=== PATIENT | male | born 1965 | race Caucasian/White ===

== ENCOUNTER 2021-01-19 10:36 | Outpatient (REF) | payer BC, SELFPAY ==
[2021-01-19 10:40] LABS: MANUAL DIFF FLAG NO
[2021-01-19 11:12] LABS: Basophils Percent Auto 0.5 % (0-2); Eosinophils Absolute Auto 0.3 X10*3/uL (0.0-0.4); Eosinophils Percent Auto 4.2 % (0-4); Hematocrit 46.8 % (42-52); Hemoglobin 15.5 g/dl (14.0-18.0); Imm Gran Abs Auto 0.03 X10*3/uL (0.00-0.03); Imm Gran Pct Auto 0.4 % (0.0-0.4); Lymphocytes Absolute Auto 2.5 X10*3/uL (1.2-4.9); Lymphocytes Percent Auto 30.7 % (20-40); Mean Corpuscular HGB Conc 33.1 g/dl (31.0-36.0); Mean Corpuscular Hemoglobin 29.2 pg (27.0-33.0); Mean Corpuscular Volume 88.1 fL (80-98); Mean Platelet Volume 10.4 fL (9.4-12.4); Monocytes Absolute Auto 0.8 X10*3/uL (0.1-1.2); Monocytes Percent Auto 10.3 % (2-11); Neutrophils Absolute Auto 4.4 X10*3/uL (2.0-8.3); Neutrophils Percent Auto 53.9 % (45-73); Platelet Count 269 X10*3/uL (160-400); Red Blood Count 5.31 X10*6/uL (4.60-5.80); Red Cell Distribution Width 13.1 % (11.0-16.0); White Blood Count 8.1 X10*3/uL (4.8-10.8)
[2021-01-19 11:30] LABS: Alanine Aminotransferase 32 U/L (0-40); Albumin Level 4.4 g/dL (3.5-5.0); Alkaline Phosphatase 55 U/L (39-117); Anion Gap 13 (12-20); Aspartate Amino Transferase 21 U/L (5-37); Bilirubin Total 0.7 mg/dL (0.0-1.0); Blood Urea Nitrogen 17 mg/dL (9-16); Calcium 9.5 mg/dL (8.4-10.2); Carbon Dioxide 23 mmol/L (22-29); Chloride 108 mmol/L (96-108); Cholesterol 199 mg/dL; Estimated Glomerular Filt Rate > 60; Glucose Fasting 89 mg/dL (60-99); HDL Cholesterol 38 mg/dL; LDL Cholesterol Calculated 101 mg/dl; Sodium 140 mmol/L (135-145); Total Protein 7.2 g/dL (6.5-8.0); Triglycerides 303 mg/dL
[2021-01-19 11:44] LABS: Glucose Urine UA NEG (NEG); Leukocyte Esterase Urine NEG (NEG); Nitrite Urine NEG (NEG); Specific Gravity - Urine >= 1.030 (1.005-1.025); Urine Blood TRACE (NEG); Urine Ketones NEG (NEG); Urine Protein NEG (NEG-TRACE)
[2021-01-19 11:49] LABS: Reflex LDLD? No
[2021-01-19 11:51] LABS: PSA,Total (Free>4and<10) 1.03 ng/mL (0.00-4.00)
[2021-01-19 11:53] LABS: Appearance Urine CLEAR; Color Urine YELLOW
[2021-01-19 12:04] LABS: RBC Urine 0 /HPF (0); Squamous Epithelial Cell Urine TRACE /LPF; WBC Urine 0-2 /HPF (0-4)
== END 2021-01-19 10:37 | disposition home or self-care (01) ==
LOC: HO.LNP 10:36
PROVIDERS: Visit Provider Internal Medicine
DX: Z00.00 Encounter for general adult medical examination without abnormal findings (principal); E78.00 Pure hypercholesterolemia, unspecified; Z12.5 Encounter for screening for malignant neoplasm of prostate
CPT/HCPCS: 80053; 80061; 81001; 81003; 84153; 85025

== ENCOUNTER 2021-08-02 09:39 | Emergency (ER) | payer BC, SELFPAY ==
[2021-08-02 09:49] VITALS: BP 122/81; PULSE 78; RESP 18; TEMP 36.7; O2SAT 98; BMI 27.9
[2021-08-02] MEDS: Tetracaine HCl/PF 0.5% Oph Sol 4 ML DROPS 3 DROP EYE-BOTH (10:11)
[2021-08-02] MEDS: Fluorescein Sodium STRIP 1 STRIP EYE-RIGHT (10:11)
[2021-08-02] MEDS: Fluorescein Sodium STRIP 1 STRIP EYE-LEFT (10:11)
--- NOTE | 2021-08-02 10:20 | ED_ITS ---
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 Patient denies any change in vision, loss of vision, or any recent trauma to the eye. Patient does not know of anything when to his eye. Patient states this morning he is continuously had symptoms of right eye pain with watery discharge he came to the ED. Patient states by the time he came to the ED right eye pain and watery discharge completely resolved. Patient wears glasses and does not sleep with contacts. Patient does not were contacts. Patient states no headache, dizziness, fever, chills, slurred speech, facial droop, paralysis of extremities, or loss of vision. Related Data Previous Rx's Medication Instructions Recorded erythromycin 5 mg/gram (0.5 %) eye 0.5 inch OPHTHALMIC (EYE) QID 7 08/02/21 ointment Days #3.5 g naproxen 500 mg tablet 500 mg PO BID PRN 10 Days #20 tab 08/02/21 Allergies Allergy/AdvReac Type Severity Reaction Status Date / Time No Known Allergies Allergy Unverified 02/20/20 17:39 [No Known Allergies*] Review of Systems Review of Systems: Resolved right eye pain with watery discharge. Yes all other systems are reviewed and are negative PMFSH Past Medical History Medical History (Updated 08/02/21 @ 10:27 by STEPHANIE Rahman) No known health problems Social History Social History Advance Directives: No Advance Directives Information Provided: Yes Physical Exam Vital Signs: Vital Signs: Last Vital Signs Temp 98.0 F 08/02/21 09:49 Pulse 78 08/02/21 09:49 Resp 18 08/02/21 09:49 BP 122/81 08/02/21 09:49 Pulse Ox 98 08/02/21 09:49 BMI result Body Mass Index 27.9 Const: General: cooperative, healthy appearing, comfortable, no acute distress, well developed, alert, awake and Physically active Orientation/consciousness: oriented to person, oriented to place and patient oriented x3 HENMT: Head: Yes normal to inspection, Yes No palpable skull fracture present, Yes normocephalic, Yes atraumatic and No abrasion Eyes: Other: Right eye: Visual acuity 20/30. Tonometry pressures 3. Tetracaine placed in eye. Fluorescein dye placed. Negative for any foreign body on evaluation. Under Wood's lamp positive for corneal abrasion. eye positive for slight conjunctival redness and watery discharge. Negative for eyelid swelling or globe tenderness. Left eye; visual acuity 20/20. Tonometry pressure 4. Tetracaine placed in eye. Fluorescein dye placed. Negative for any foreign body or evaluation. Negative for corneal abrasion. eye normal General: appearance normal, both eyes and all related structures Neck: Neck: Yes normal visual inspection and Yes full ROM Chest: Chest palpation & inspection: normal inspection of the chest and normal palpation of entire chest wall Resp: Effort & Inspection: normal respiratory effort and able to speak in complete sentences Auscultation: clear to auscultation bilaterally Cardio: Jugular venous distension: no JVD Heart sounds: S1 normal heart sound present and S2 normal heart sound present GI: Inspection: Yes normal to inspection and No abdominal wall ecchymosis Palpation (GI): Soft to palpation, not firm, nontender, no guarding and not rigid : General: No CVA tenderness and Yes no CVA tenderness Back/Spine/Pelvis: Back: no CVA tenderness, No CVA tenderness and No back tenderness Skin: General skin exam: no rashes or lesions noted and elasticity normal Neuro: Other: Negative for facial droop. Negative for slurred speech. Negative pronator drift. All extremities equal strength 5+. Finger to nose rapid hand movement intact General: oriented to person, oriented to place, patient oriented x3, gait normal and tone normal Cranial nerves: Yes CN's II-XII intact bilaterally Extrem: General: Yes normal to inspection and Yes full ROM Psych: Appearance: grossly normal, well kempt and not disheveled Course Course Course Narrative: Eye evaluated. Reevaluation(s) Reevaluation #1: Right eye positive for corneal abrasion. Patient states he has molding process technician in [place], patient form to follow-up with his molding process technician and pulses due to complex eye history. Patient informed if not able to follow up with molding process technician in [place] he can follow-up with Dr. Williamson at [facility]. Patient will be discharged with eye ointment and pain meds Time: 10:26 MDM - Eye Problem MDM Narrative Medical decision making narrative: Corneal abrasion Discharge Plan Discharge Clinical Impression: Corneal abrasion Patient Disposition: Home, Self-Care Instructions: Corneal Abrasion (DC) Additional Instructions: You will be discharged with eye ointment antibiotic for corneal abrasion. Please follow-up with the molding process technician as soon as possible. Return to the ED for any loss of vision, change in vision, severe pain, headache, dizziness, facial droop, paralysis of extremities, slurred speech, eyelid swelling, or any other concerning symptoms. Prescriptions: New naproxen 500 mg tablet 500 mg PO BID PRN (Reason: pain) 10 Days Qty: 20 0RF erythromycin 5 mg/gram (0.5 %) ointment 0.5 inch ophthalmic (eye) QID 7 Days Qty: 3.5 0RF Rx Instructions: place in right eye Referrals: Alvaro Williamson [Physician] - 2 days (Right eye corneal abrasion) Stand Alone Forms: Work/School Release Interventions: ED Discharge Assessment Last Done: 08/02/21 10:32 Discharge Date/Time: 08/02/21 10:32 Print Language: Yi
== END 2021-08-02 10:32 | disposition home or self-care (01) ==
PROVIDERS: Emergency Provider Emergency Medicine; PCP Internal Medicine
DX: S05.01XA Injury of conjunctiva and corneal abrasion without foreign body, right eye, initial encounter (principal); X58.XXXA Exposure to other specified factors, initial encounter; H57.11 Ocular pain, right eye; Y93.9 Activity, unspecified; Y92.9 Unspecified place or not applicable; Y99.9 Unspecified external cause status
CPT/HCPCS: 99283

== ENCOUNTER 2021-08-17 10:42 | Outpatient (REF) | payer BC, SELFPAY ==
[2021-08-17 11:11] LABS: Alanine Aminotransferase 28 U/L (0-40); Albumin Level 4.6 g/dL (3.5-5.0); Alkaline Phosphatase 71 U/L (39-117); Aspartate Amino Transferase 25 U/L (5-37); Bilirubin Direct 0.2 mg/dL (0.0-0.5); Bilirubin Total 0.5 mg/dL (0.0-1.0); Cholesterol 219 mg/dL; HDL Cholesterol 44 mg/dL; LDL Cholesterol Calculated 125 mg/dl; Total Protein 7.8 g/dL (6.5-8.0); Triglycerides 250 mg/dL
[2021-08-17 11:36] LABS: Reflex LDLD? No
== END 2021-08-17 10:43 | disposition home or self-care (01) ==
LOC: HO.LNP 10:42
PROVIDERS: Visit Provider Internal Medicine
DX: E78.00 Pure hypercholesterolemia, unspecified (principal)
CPT/HCPCS: 80061; 80076

== ENCOUNTER 2022-03-25 11:29 | Outpatient (REF) | payer BC, SELFPAY ==
[2022-03-25 11:31] LABS: MANUAL DIFF FLAG NO
[2022-03-25 11:56] LABS: Appearance Urine Clear; Color Urine Yellow; Glucose Urine UA Negative (Negative); Leukocyte Esterase Urine Negative (Negative); Nitrite Urine Negative (Negative); PH 6.5 (5.0-9.0); Urine Blood Negative (Negative); Urine Ketones Negative (Negative); Urine Protein Negative (Neg-Trace)
[2022-03-25 11:57] LABS: Basophils Absolute Auto 0.1 X10*3/uL (0.0-0.2); Basophils Percent Auto 0.5 % (0-2); Eosinophils Absolute Auto 0.4 X10*3/uL (0.0-0.4); Eosinophils Percent Auto 2.7 % (0-4); Hematocrit 47.6 % (42.0-52.0); Imm Gran Abs Auto 0.09 X10*3/uL (0.00-0.03); Imm Gran Pct Auto 0.7 % (0.0-0.4); Lymphocytes Absolute Auto 2.6 X10*3/uL (1.2-4.9); Lymphocytes Percent Auto 19.8 % (20-40); Mean Corpuscular HGB Conc 33.6 g/dl (31.0-36.0); Mean Corpuscular Hemoglobin 29.5 pg (27.0-33.0); Mean Corpuscular Volume 87.8 fL (80.0-98.0); Mean Platelet Volume 10.1 fL (9.4-12.4); Monocytes Absolute Auto 1.1 X10*3/uL (0.1-1.2); Monocytes Percent Auto 8.4 % (2-11); Neutrophils Absolute Auto 8.7 x10*3/uL (2.0-8.3); Neutrophils Percent Auto 67.9 % (45-73); Platelet Count 344 X10*3/uL (160-400); Red Blood Count 5.42 X10*6/uL (4.60-5.80); Red Cell Distribution Width 12.8 % (11.0-16.0); White Blood Count 12.9 X10*3/uL (4.8-10.8)
[2022-03-25 12:06] LABS: Bacteria Urine None Seen (None Seen); Hyaline Casts Urine 0-2 /LPF (0-2); RBC Urine 0-2 /HPF (0-2); Squamous Epithelial Cell Urine 0-2 /HPF (0-2); WBC Urine 0-5 /HPF (0-5)
[2022-03-25 12:27] LABS: Alanine Aminotransferase 23 U/L (0-40); Albumin Level 4.5 g/dL (3.5-5.0); Alkaline Phosphatase 60 U/L (39-117); Anion Gap 17 (12-20); Aspartate Amino Transferase 19 U/L (5-37); Bilirubin Total 0.6 mg/dL (0.0-1.0); Blood Urea Nitrogen 17 mg/dL (9-16); Calcium 9.6 mg/dL (8.4-10.2); Carbon Dioxide 25 mmol/L (22-29); Chloride 105 mmol/L (96-108); Cholesterol 195 mg/dL; Estimated Glomerular Filt Rate > 60; Glucose Fasting 88 mg/dL (60-99); HDL Cholesterol 43 mg/dL; LDL Cholesterol Calculated 120 mg/dl; Potassium 4.5 mmol/L (3.3-5.1); Sodium 142 mmol/L (135-145); Total Protein 7.4 g/dL (6.5-8.0); Triglycerides 162 mg/dL
== END 2022-03-25 11:30 | disposition home or self-care (01) ==
LOC: HO.LNP 11:29
PROVIDERS: Visit Provider Internal Medicine
DX: Z00.00 Encounter for general adult medical examination without abnormal findings (principal); E78.00 Pure hypercholesterolemia, unspecified; Z12.5 Encounter for screening for malignant neoplasm of prostate
CPT/HCPCS: 80053; 80061; 81001; 84153; 85025

== ENCOUNTER 2022-03-31 11:38 | Outpatient (REF) | payer BC, SELFPAY ==
[2022-03-31 11:40] LABS: MANUAL DIFF FLAG NO
[2022-03-31 12:11] LABS: Basophils Absolute Auto 0.1 X10*3/uL (0.0-0.2); Basophils Percent Auto 0.6 % (0-2); Eosinophils Absolute Auto 0.3 X10*3/uL (0.0-0.4); Eosinophils Percent Auto 2.8 % (0-4); Hematocrit 44.3 % (42.0-52.0); Imm Gran Abs Auto 0.05 X10*3/uL (0.00-0.03); Imm Gran Pct Auto 0.5 % (0.0-0.4); Lymphocytes Absolute Auto 1.9 X10*3/uL (1.2-4.9); Lymphocytes Percent Auto 17.3 % (20-40); Mean Corpuscular HGB Conc 33.9 g/dl (31.0-36.0); Mean Corpuscular Hemoglobin 29.6 pg (27.0-33.0); Mean Corpuscular Volume 87.5 fL (80.0-98.0); Mean Platelet Volume 10.3 fL (9.4-12.4); Monocytes Absolute Auto 0.8 X10*3/uL (0.1-1.2); Monocytes Percent Auto 6.8 % (2-11); Neutrophils Absolute Auto 7.9 x10*3/uL (2.0-8.3); Platelet Count 308 X10*3/uL (160-400); Red Blood Count 5.06 X10*6/uL (4.60-5.80); Red Cell Distribution Width 12.8 % (11.0-16.0)
== END 2022-03-31 11:39 | disposition home or self-care (01) ==
LOC: HO.LNP 11:38
PROVIDERS: Visit Provider Internal Medicine
DX: D72.829 Elevated white blood cell count, unspecified (principal)
CPT/HCPCS: 85025

== ENCOUNTER 2022-05-02 09:10 | Emergency (ER) | payer BC, SELFPAY ==
--- NOTE | ~2022-05-02 | CT_ITS ---
EXAMINATION: CT HEAD WITHOUT CONTRAST CLINICAL INFORMATION: Vague temporal headache with tenderness COMPARISON: None TECHNIQUE: Imaging was performed from the skull base to vertex without intravenous administration of contrast. This CT examination was performed using dose optimization techniques as appropriate, variously including the following: *Automated exposure control *Adjustment of mA and/or kV according to patient size (this includes techniques or standardized protocols for targeted exams where dose is matched to indication/reason for exam; i.e. extremities or head) *Use of iterative reconstruction technique Total exam dose length product: 696 mGy-cm FINDINGS: No intra or extra-axial fluid collection, hemorrhage, or mass. No ventriculomegaly. No midline shift or herniation. Basal cisterns are patent. Aguilar-white matter differentiation is maintained. No territorial encephalomalacia. No significant volume loss. There is no abnormal attenuation within the brain parenchyma. Bilateral basal ganglia calcifications noted incidentally. No calvarial fracture or soft tissue abnormality. Partial opacification of left mastoid air cells. No septal destruction. Middle ear cavity is normally aerated. Right mastoid air cells and imaged paranasal sinuses are normally aerated. CT/CT head/brain wo IV con IMPRESSION: 1. No acute intracranial pathology. 2. Left mastoid effusion without bony septal destruction, nonspecific. Correlate clinically with signs or symptoms of mastoiditis.
[2022-05-02 09:51] VITALS: BP 145/90; PULSE 80; RESP 16; TEMP 36.6; O2SAT 97; BMI 27.2
[2022-05-02 10:03] LABS: MANUAL DIFF FLAG NO
[2022-05-02 10:09] LABS: Basophils Absolute Auto 0.1 X10*3/uL (0.0-0.2); Basophils Percent Auto 0.9 % (0-2); Eosinophils Absolute Auto 0.2 X10*3/uL (0.0-0.4); Eosinophils Percent Auto 2.7 % (0-4); Hematocrit 47.2 % (42.0-52.0); Hemoglobin 15.8 g/dl (14.0-18.0); Imm Gran Abs Auto 0.03 X10*3/uL (0.00-0.03); Imm Gran Pct Auto 0.5 % (0.0-0.4); Lymphocytes Absolute Auto 1.2 X10*3/uL (1.2-4.9); Lymphocytes Percent Auto 19.5 % (20-40); Mean Corpuscular HGB Conc 33.5 g/dl (31.0-36.0); Mean Corpuscular Hemoglobin 29.4 pg (27.0-33.0); Mean Corpuscular Volume 87.7 fL (80.0-98.0); Mean Platelet Volume 9.7 fL (9.4-12.4); Monocytes Absolute Auto 1.1 X10*3/uL (0.1-1.2); Monocytes Percent Auto 17.9 % (2-11); Neutrophils Absolute Auto 3.7 x10*3/uL (2.0-8.3); Neutrophils Percent Auto 58.5 % (45-73); Platelet Count 279 X10*3/uL (160-400); Red Blood Count 5.38 X10*6/uL (4.60-5.80); Red Cell Distribution Width 12.9 % (11.0-16.0); White Blood Count 6.3 X10*3/uL (4.8-10.8)
[2022-05-02 10:25] LABS: Anion Gap 14 (12-20); Blood Urea Nitrogen 14 mg/dL (9-16); Calcium 9.9 mg/dL (8.4-10.2); Carbon Dioxide 24 mmol/L (22-29); Chloride 107 mmol/L (96-108); Creatinine Clr Calc Pharmacy 85.1; Estimated Glomerular Filt Rate > 60; Glucose Random 103 mg/dL (60-115); Potassium 4.4 mmol/L (3.3-5.1); Sodium 141 mmol/L (135-145)
--- NOTE | 2022-05-02 12:50 | ED.GENADULT ---
HPI - General Adult General Chief complaint: Headache <Magaly Maloney NP - Last Filed: 05/02/22 17:00> Stated complaint: Lump on forehead, painful <Magaly Maloney NP - Last Filed: 05/02/22 17:00> Time Seen by Provider: 05/02/22 12:43 <Magaly Maloney NP - Last Filed: 05/02/22 17:00> Source: patient <Magaly Maloney NP - Last Filed: 05/02/22 17:00> Mode of arrival: ambulatory <Magaly Maloney NP - Last Filed: 05/02/22 17:00> Limitations: no limitations <Magaly Maloney NP - Last Filed: 05/02/22 17:00> History of Present Illness HPI narrative: 56-year-old male with a H high cholesterol, on a statin, presents to the emergency department complaining of a bulging vein from his right upper forehead down to his right druze. Symptoms began yesterday with associated headache. He denies any injury or strenuous activity. 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 He took 2 at-home COVID-19 tests, 1 today and 1 yesterday, and both were negative. He also complains of 1 day of GI upset with increased flatus and fatigue. He denies any fever, chills, chest pain, shortness of breath, current headache, vision changes, changes in hearing. He denies any sore throat or trouble swallowing. <Magaly Maloney NP - Last Filed: 05/02/22 17:00> Onset (ago): day(s) (1) <Magaly Maloney NP - Last Filed: 05/02/22 17:00> Location: head <Magaly Maloney NP - Last Filed: 05/02/22 17:00> Radiation: non-radiation <Magaly Maloney NP - Last Filed: 05/02/22 17:00> Treatments prior to arrival: none <Magaly Maloney NP - Last Filed: 05/02/22 17:00> Related Data Home medications: Previous Rx's Medication Instructions Recorded erythromycin 5 mg/gram (0.5 %) eye 0.5 inch ophthalmic (eye) QID 7 08/02/21 ointment days #3.5 grams naproxen 500 mg tablet 500 mg PO BID PRN pain 10 days #20 08/02/21 tabs <Magaly Maloney NP - Last Filed: 05/02/22 17:00> Allergies/adverse reactions: Allergies Allergy/AdvReac Type Severity Reaction Status Date / Time No Known Allergies Allergy Unverified 02/20/20 17:39 [No Known Allergies*] <Magaly Maloney NP - Last Filed: 05/02/22 17:00> Review of Systems Review of Systems: Yes all other systems are reviewed and are negative <Magaly Maloney NP - Last Filed: 05/02/22 17:00> Constitutional: Constitutional: Reports no additional constitutional complaints, Denies chills, Reports fatigue, Denies fever(s), Reports headache(s) and Denies weakness <Magaly Maloney NP - Last Filed: 05/02/22 17:00> Eyes: Eyes: Reports no additional eye complaints and Denies change in vision <Magaly Maloney NP - Last Filed: 05/02/22 17:00> ENT: Reports system reviewed and no additional complaints, except as documented, Reports Normal hearing present, Denies dizziness, Denies facial pain, Reports headache(s) and Denies disequilibrium <Magaly Maloney NP - Last Filed: 05/02/22 17:00> Cardiovascular: Cardiovascular: Reports no additional cardiovascular complaints, Denies chest pain and Denies dyspnea <Magaly Maloney NP - Last Filed: 05/02/22 17:00> Respiratory: Respiratory: Reports no additional respiratory complaints, Denies chest congestion, Denies cough and Denies dyspnea <Magaly Maloney NP - Last Filed: 05/02/22 17:00> Gastrointestinal: Gastrointestinal: Reports no additional gastrointestinal complaints, Denies abdominal pain, Denies melena, Denies hematochezia, Denies constipation, Reports excessive flatus, Denies diarrhea, Denies nausea and Denies vomiting <Magaly Maloney NP - Last Filed: 05/02/22 17:00> Genitourinary: Genitourinary: Reports no additional male genitourinary complaints <Magaly Maloney NP - Last Filed: 05/02/22 17:00> Musculoskeletal: Musculoskeletal: Reports no additional musculoskeletal complaints, Denies myalgias, Denies numbness and Denies tingling <Magaly Maloney NP - Last Filed: 05/02/22 17:00> Integumentary/Breasts: Skin/Breast: Reports system reviewed and no additional complaints, except as docu, Denies lesions, Denies erythema, Denies rash and Denies sores <Magaly Maloney NP - Last Filed: 05/02/22 17:00> Neurologic: Reports system reviewed and no additional complaints, except as documented, Reports Normal hearing present, Denies dizziness, Reports headache(s), Denies numbness, Denies tingling, Denies disequilibrium and Denies weakness <Magaly Maloney NP - Last Filed: 05/02/22 17:00> Psychiatric: Psychiatric: Reports no additional psychiatric complaints <Magaly Maloney NP - Last Filed: 05/02/22 17:00> Endocrine: Endocrine: Reports fatigue <Magaly Maloney NP - Last Filed: 05/02/22 17:00> FOR[facility]LY [facility] Past Medical History Attestation statement: The following information was validated with the patient. <Magaly Maloney NP - Last Filed: 05/02/22 17:00> Source: old records reviewed <Magaly Maloney NP - Last Filed: 05/02/22 17:00> Medical History: Medical History No known health problems <Magaly Maloney NP - Last Filed: 05/02/22 17:00> Social History Social History: Social History Advance Directives: No Advance Directives Information Provided: Yes <Magaly Maloney NP - Last Filed: 05/02/22 17:00> Physical Exam ED Vital Signs: Vital Signs - 24 hr 05/02/22 09:51 Temperature 97.8 F Pulse Rate 80 Respiratory Rate 16 Blood Pressure 145/90 H Pulse Oximetry 97 Oxygen Delivery Method Room Air BMI result Body Mass Index 27.2 <Magaly Maloney NP - Last Filed: 05/02/22 17:00> Vital Signs - 24 hr 05/02/22 09:51 Temperature 97.8 F Pulse Rate 80 Respiratory Rate 16 Blood Pressure 145/90 H Pulse Oximetry 97 Oxygen Delivery Method Room Air BMI result Body Mass Index 27.2 <Campbell Wilson MD - Last Filed: 05/02/22 15:22> Const General: cooperative, no acute distress, alert and awake <Magaly Maloney NP - Last Filed: 05/02/22 17:00> Nutritional Appearance: well nourished <Magaly Maloney NP - Last Filed: 05/02/22 17:00> Orientation/consciousness: patient oriented x3 <Magaly Maloney NP - Last Filed: 05/02/22 17:00> Limitations: no limitations <Magaly Maloney NP - Last Filed: 05/02/22 17:00> HENMT Head: Yes normal to inspection, Yes normocephalic, Yes atraumatic, No palpable skull fracture, No scalp lesion, Yes Temporal artery tenderness present and No periorbital ecchymosis <Magaly Maloney NP - Last Filed: 05/02/22 17:00> Ears: hearing grossly normal bilaterally and external ears normal <Magaly Maloney NP - Last Filed: 05/02/22 17:00> General nose exam: Normal external nose present <Magaly Maloney NP - Last Filed: 05/02/22 17:00> Face and sinus: Yes normal facial exam <Magaly Maloney NP - Last Filed: 05/02/22 17:00> Mouth: Normal oral and palatal mucosa present and tongue abnormal with white coating <Magaly Maloney NP - Last Filed: 05/02/22 17:00> Teeth and gingiva: dentition normal <Magaly Maloney NP - Last Filed: 05/02/22 17:00> Eyes General: appearance normal, both eyes and all related structures <Magaly Maloney TERRESTRIAL ECOLOGIST - Last Filed: 05/02/22 17:00> Alignment and Position: alignment normal <Magaly Maloney TERRESTRIAL ECOLOGIST - Last Filed: 05/02/22 17:00> Periorbital: periorbital findings normal <Magaly Maloney TERRESTRIAL ECOLOGIST - Last Filed: 05/02/22 17:00> Eyelids: Yes eyelids normal <Magaly Maloney TERRESTRIAL ECOLOGIST - Last Filed: 05/02/22 17:00> Conjunctivae: conjunctivae normal <Magaly Maloney TERRESTRIAL ECOLOGIST - Last Filed: 05/02/22 17:00> Sclerae: sclerae normal <Magaly Maloney TERRESTRIAL ECOLOGIST - Last Filed: 05/02/22 17:00> Pupils: Equal, round and reactive pupils present <Magaly Maloney TERRESTRIAL ECOLOGIST - Last Filed: 05/02/22 17:00> EOM: EOMs intact bilaterally <Magaly Maloney TERRESTRIAL ECOLOGIST - Last Filed: 05/02/22 17:00> Neck Neck: Yes normal visual inspection, Yes full ROM and Yes no lymphadenopathy <Magaly Maloney TERRESTRIAL ECOLOGIST - Last Filed: 05/02/22 17:00> Chest Chest palpation & inspection: normal inspection of the chest <Magaly Maloney TERRESTRIAL ECOLOGIST - Last Filed: 05/02/22 17:00> Resp Effort & Inspection: normal respiratory effort and able to speak in complete sentences <Magaly Maloney TERRESTRIAL ECOLOGIST - Last Filed: 05/02/22 17:00> Auscultation: clear to auscultation bilaterally <Magaly Maloney TERRESTRIAL ECOLOGIST - Last Filed: 05/02/22 17:00> Cardio Rate: regular rate <Magaly Maloney TERRESTRIAL ECOLOGIST - Last Filed: 05/02/22 17:00> Rhythm: regular rhythm <Magaly Maloney TERRESTRIAL ECOLOGIST - Last Filed: 05/02/22 17:00> GI Palpation (GI): Soft to palpation, not firm, nontender, no guarding and not rigid <Magaly Mlaoney TERRESTRIAL ECOLOGIST - Last Filed: 05/02/22 17:00> Auscultation: normal bowel sounds <Magaly Maloney TERRESTRIAL ECOLOGIST - Last Filed: 05/02/22 17:00> Skin General skin exam: no rashes or lesions noted <Magaly Maloney TERRESTRIAL ECOLOGIST - Last Filed: 05/02/22 17:00> Neuro General: patient oriented x3 <Magaly Maloney TERRESTRIAL ECOLOGIST - Last Filed: 05/02/22 17:00> Cranial nerves: Yes Equal, round and reactive pupils present and Yes Normal hearing present <Magaly Maloney TERRESTRIAL ECOLOGIST - Last Filed: 05/02/22 17:00> Cognition (Neuro): normal cognition <Magaly Maloney TERRESTRIAL ECOLOGIST - Last Filed: 05/02/22 17:00> Gait exam (Neuro): Normal gait present <Magaly Maloney TERRESTRIAL ECOLOGIST - Last Filed: 05/02/22 17:00> Motor exam (neuro): 5/5 motor strength present throughout <Magaly Maloney TERRESTRIAL ECOLOGIST - Last Filed: 05/02/22 17:00> Sensory Exam: Normal double simultaneous stimulation for sensation <Magaly Maloney TERRESTRIAL ECOLOGIST - Last Filed: 05/02/22 17:00> Extrem General: Yes normal to inspection, Yes full ROM and Yes capillary refill normal <Magaly Maloney TERRESTRIAL ECOLOGIST - Last Filed: 05/02/22 17:00> Psych Appearance: grossly normal <Magaly Maloney TERRESTRIAL ECOLOGIST - Last Filed: 05/02/22 17:00> Mental Status: mental status grossly normal <Magaly Maloney TERRESTRIAL ECOLOGIST - Last Filed: 05/02/22 17:00> Speech and movement: Normal speech and movement present <Magaly Maloney TERRESTRIAL ECOLOGIST - Last Filed: 05/02/22 17:00> Affect: normal affect <Magaly Maloney TERRESTRIAL ECOLOGIST - Last Filed: 05/02/22 17:00> Attitude: cooperative <Magaly Maloney TERRESTRIAL ECOLOGIST - Last Filed: 05/02/22 17:00> Thought process: Normal thought process present <Magaly Maloney TERRESTRIAL ECOLOGIST - Last Filed: 05/02/22 17:00> Thought content: Normal thought content present <Magaly Maloney NP - Last Filed: 05/02/22 17:00> Insight: Good insight present (Psych) <Magaly Maloney NP - Last Filed: 05/02/22 17:00> Judgement: Good judgement present (Psych) <Magaly Maloney NP - Last Filed: 05/02/22 17:00> Course Course Course Narrative: 1440: Blood work unremarkable. CT head ordered to rule out intracranial pathology. 1650: CT head shows left mastoid effusion without bony septal destruction with history and physical exam suspicious for mastoiditis. Patient contacted with CT head results, recommended to begin decongestants for treatment. No answer questions by patient. 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 Blood work unremarkable. ESR and CRP unremarkable for temporal arteritis. CT head pending read. Patient requests discharge at this time. History, physical exam, and diagnostics discussed with patient with no unanswered questions at this time. Plan to contact patient with CT head results at patient's request. Educated to return to the emergency department with severe headache, changes in vision, fever, chills, nausea, vomiting, or any other emergent symptom that is concerning. Recommended to follow up with the primary care provider for further treatment and management. 1650: CT head shows left mastoid effusion without bony septal destruction. History and physical exam with low suspicion for mastoiditis as patient denies fever or ear pain and there is no local erythema over mastoid bone, edema of the pinna or displaced auricle. Pt contacted with CT head results and recommended to begin decongestants for treatment. <Magayl Maloney NP - Last Filed: 05/02/22 17:00> Lab Data Lab results reviewed: Yes I reviewed the patient's lab results. <Magaly Maloney NP - Last Filed: 05/02/22 17:00> Result diagrams: : 05/02/22 09:59 05/02/22 09:59 <Magaly Maloney NP - Last Filed: 05/02/22 17:00> Labs: Lab Results 05/02/22 05/02/22 05/02/22 Range/Units 09:59 09:59 09:59 WBC 6.3 (4.8-10.8) X10*3/uL RBC 5.38 (4.60-5.80) X10*6/uL Hgb 15.8 (14.0-18.0) g/dl Hct 47.2 (42.0-52.0) % MCV 87.7 (80.0-98.0) fL MCH 29.4 (27.0-33.0) pg MCHC 33.5 (31.0-36.0) g/dl RDW 12.9 (11.0-16.0) % Plt Count 279 (160-400) X10*3/uL MPV 9.7 (9.4-12.4) fL Immature Gran % (Auto) 0.5 H (0.0-0.4) % Neut % (Auto) 58.5 (45-73) % Lymph % (Auto) 19.5 L (20-40) % [place] % (Auto) 17.9 H (2-11) % Eos % (Auto) 2.7 (0-4) % Baso % (Auto) 0.9 (0-2) % Lymph # (Auto) 1.2 (1.2-4.9) X10*3/uL [place] # (Auto) 1.1 (0.1-1.2) X10*3/uL Eos # (Auto) 0.2 (0.0-0.4) X10*3/uL Baso # (Auto) 0.1 (0.0-0.2) X10*3/uL Abs Immat Gran (auto) 0.03 (0.00-0.03) X10*3/uL Absolute Neuts (auto) 3.7 (2.0-8.3) x10*3/uL Absolute Nucleated RBC 0.000 (0.0-0.012) X10*3/uL Nucleated RBC % (auto) 0.0 (0.0-0.2) /100WBC ESR 7 (0-15) MM/HR Sodium 141 (135-145) mmol/L Potassium 4.4 (3.3-5.1) mmol/L Chloride 107 (96-108) mmol/L Carbon Dioxide 24 (22-29) mmol/L Anion Gap 14 (12-20) BUN 14 (9-16) mg/dL Creatinine 1.00 (0.5-1.4) mg/dL Estim Creat Clear Calc 85.1 Estimated GFR > 60 Random Glucose 103 (60-115) mg/dL Calcium 9.9 (8.4-10.2) mg/dL Phosphorus 3.5 (2.7-4.5) mg/dL Total Bilirubin 0.5 (0.0-1.0) mg/dL Direct Bilirubin 0.2 (0.0-0.5) mg/dL AST 25 (5-37) U/L ALT 34 (0-40) U/L Alkaline Phosphatase 71 (39-117) U/L C-Reactive Protein 0.62 H (< or = 0.50) mg/dL Total Protein 7.8 (6.5-8.0) g/dL Albumin 4.7 (3.5-5.0) g/dL 25-OH Vitamin D Total 34.1 (>30) ng/mL <Magaly Maloney, TERRESTRIAL ECOLOGIST - Last Filed: 05/02/22 17:00> Lab Results 05/02/22 05/02/22 05/02/22 Range/Units 09:59 09:59 09:59 WBC 6.3 (4.8-10.8) X10*3/uL RBC 5.38 (4.60-5.80) X10*6/uL Hgb 15.8 (14.0-18.0) g/dl Hct 47.2 (42.0-52.0) % MCV 87.7 (80.0-98.0) fL MCH 29.4 (27.0-33.0) pg MCHC 33.5 (31.0-36.0) g/dl RDW 12.9 (11.0-16.0) % Plt Count 279 (160-400) X10*3/uL MPV 9.7 (9.4-12.4) fL Immature Gran % (Auto) 0.5 H (0.0-0.4) % Neut % (Auto) 58.5 (45-73) % Lymph % (Auto) 19.5 L (20-40) % [place] % (Auto) 17.9 H (2-11) % Eos % (Auto) 2.7 (0-4) % Baso % (Auto) 0.9 (0-2) % Lymph # (Auto) 1.2 (1.2-4.9) X10*3/uL [place] # (Auto) 1.1 (0.1-1.2) X10*3/uL Eos # (Auto) 0.2 (0.0-0.4) X10*3/uL Baso # (Auto) 0.1 (0.0-0.2) X10*3/uL Abs Immat Gran (auto) 0.03 (0.00-0.03) X10*3/uL Absolute Neuts (auto) 3.7 (2.0-8.3) x10*3/uL Absolute Nucleated RBC 0.000 (0.0-0.012) X10*3/uL Nucleated RBC % (auto) 0.0 (0.0-0.2) /100WBC ESR 7 (0-15) MM/HR Sodium 141 (135-145) mmol/L Potassium 4.4 (3.3-5.1) mmol/L Chloride 107 (96-108) mmol/L Carbon Dioxide 24 (22-29) mmol/L Anion Gap 14 (12-20) BUN 14 (9-16) mg/dL Creatinine 1.00 (0.5-1.4) mg/dL Estim Creat Clear Calc 85.1 Estimated GFR > 60 Random Glucose 103 (60-115) mg/dL Calcium 9.9 (8.4-10.2) mg/dL Phosphorus 3.5 (2.7-4.5) mg/dL Total Bilirubin 0.5 (0.0-1.0) mg/dL Direct Bilirubin 0.2 (0.0-0.5) mg/dL AST 25 (5-37) U/L ALT 34 (0-40) U/L Alkaline Phosphatase 71 (39-117) U/L C-Reactive Protein 0.62 H (< or = 0.50) mg/dL Total Protein 7.8 (6.5-8.0) g/dL Albumin 4.7 (3.5-5.0) g/dL 25-OH Vitamin D Total 34.1 (>30) ng/mL <Campbell Wilson MD - Last Filed: 05/02/22 15:22> Imaging Data CT scan - head: My impression: No intracranial pathology. Left mastoid effusion without bony septal destruction. <Magaly Maloney NP - Last Filed: 05/02/22 17:00> Radiologist's impression: EXAMINATION: CT HEAD WITHOUT CONTRAST CLINICAL INFORMATION: Vague temporal headache with tenderness? COMPARISON: None TECHNIQUE: Imaging was performed from the skull base to vertex without intravenous administration of contrast. This CT examination was performed using dose optimization techniques as appropriate, variously including the following: *Automated exposure control *Adjustment of mA and/or kV according to patient size (this includes techniques or standardized protocols for targeted exams where dose is matched to indication/reason for exam; i.e. extremities or head) *Use of iterative reconstruction technique Total exam dose length product: 696 mGy-cm FINDINGS: No intra or extra-axial fluid collection, hemorrhage, or mass. No ventriculomegaly. No midline shift or herniation. Basal cisterns are patent. Aguilar-white matter differentiation is maintained. No territorial encephalomalacia. ?No significant volume loss. There is no abnormal attenuation within the brain parenchyma. Bilateral basal ganglia calcifications noted incidentally. No calvarial fracture or soft tissue abnormality. Partial opacification of left mastoid air cells. No septal destruction. Middle ear cavity is normally aerated. Right mastoid air cells and imaged paranasal sinuses are normally aerated. CT/CT head/brain wo IV con IMPRESSION: 1.? No acute intracranial pathology. 2.? Left mastoid effusion without bony septal destruction, nonspecific. Correlate clinically with signs or symptoms of mastoiditis. ? Dictated By: Giovanni Hayden Signed By: <Electronically signed by Giovanni? Catracho in [place]> 05/02/22 1631 DD/ 1557 TD/TT:? Cargo Agent: <Magaly Maloney NP - Last Filed: 05/02/22 17:00> Discharge Plan Discharge Clinical Impression: Headache <Magaly Maloney NP - Last Filed: 05/02/22 17:00> Patient Disposition: Home, Self-Care <Magaly Maloney NP - Last Filed: 05/02/22 17:00> Instructions: Acute Headache (ED) <Magaly Maloney NP - Last Filed: 05/02/22 17:00> Additional Instructions: Please return to the emergency department with worsening headache, change in vision, dizziness, or any other emergent symptoms that may be concerning. Recommended follow-up with the primary care provider for further treatment and management. <Magaly Maloney NP - Last Filed: 05/02/22 17:00> Prescriptions: No Action naproxen 500 mg tablet 500 mg PO BID PRN (Reason: pain) 10 Days Qty: 20 0RF erythromycin 5 mg/gram (0.5 %) ointment 0.5 inch ophthalmic (eye) QID 7 Days Qty: 3.5 0RF Rx Instructions: place in right eye <Magaly Maloney NP - Last Filed: 05/02/22 17:00> Referrals: Kody Servin MD [Primary Care Provider] - <Magaly Maloney NP - Last Filed: 05/02/22 17:00> Stand Alone Forms: Work/School Release <Magaly Maloney NP - Last Filed: 05/02/22 17:00> Interventions: ED Discharge Assessment Last Done: 05/02/22 15:50 <Magaly Maloney NP - Last Filed: 05/02/22 17:00> Discharge Date/Time: 05/02/22 15:51 <Magaly Maloney NP - Last Filed: 05/02/22 17:00>
[2022-05-02 13:58] LABS: Alanine Aminotransferase 34 U/L (0-40); Albumin Level 4.7 g/dL (3.5-5.0); Alkaline Phosphatase 71 U/L (39-117); Aspartate Amino Transferase 25 U/L (5-37); Bilirubin Direct 0.2 mg/dL (0.0-0.5); Bilirubin Total 0.5 mg/dL (0.0-1.0); C Reactive Protein 0.62 mg/dL (< or = 0.50); Phosphorus 3.5 mg/dL (2.7-4.5); Total Protein 7.8 g/dL (6.5-8.0); Vitamin D 25-OH Total 34.1 ng/mL (>30)
[2022-05-02 14:20] LABS: Erythrocyte Sedimentation Rate 7 MM/HR (0-15)
== END 2022-05-02 15:51 | disposition home or self-care (01) ==
PROVIDERS: Nurse Practitioner Family; Emergency Provider Emergency Medicine; PCP Internal Medicine
DX: R51.9 Headache, unspecified (principal); E78.5 Hyperlipidemia, unspecified; Z79.02 Long term (current) use of antithrombotics/antiplatelets
CPT/HCPCS: 36415; 70450; 80048; 80076; 82306; 84100; 85025; 85652; 86140; 99282; 99284

== ENCOUNTER 2022-09-26 10:31 | Outpatient (REF) | payer BC, SELFPAY ==
[2022-09-26 11:06] LABS: Alanine Aminotransferase 34 U/L (0-40); Albumin Level 4.5 g/dL (3.5-5.0); Alkaline Phosphatase 57 U/L (39-117); Aspartate Amino Transferase 26 U/L (5-37); Bilirubin Direct 0.2 mg/dL (0.0-0.5); Bilirubin Total 0.9 mg/dL (0.0-1.0); Cholesterol 213 mg/dL; HDL Cholesterol 47 mg/dL; LDL Cholesterol Calculated 123 mg/dl; Total Protein 7.2 g/dL (6.5-8.0); Triglycerides 216 mg/dL
[2022-09-26 14:40] LABS: Reflex LDLD? No
== END 2022-09-26 10:32 | disposition home or self-care (01) ==
LOC: HO.LNP 10:31
PROVIDERS: Visit Provider Internal Medicine
DX: E78.00 Pure hypercholesterolemia, unspecified (principal)
CPT/HCPCS: 80061; 80076

== ENCOUNTER 2023-01-05 11:27 | Outpatient (REF) | payer BC, SELFPAY ==
--- NOTE | ~2023-01-05 | XR_ITS ---
EXAMINATION: XR PELVIS CLINICAL INFORMATION: Hip pain COMPARISON: None available. TECHNIQUE: AP view of the pelvis. FINDINGS: No fracture. Hip joint spaces are maintained. Alignment is anatomic. Sacroiliac joints and pubic symphysis are normal. There is scattered phleboliths in pelvis. No abnormal soft tissue calcifications. XR/XR pelvis 1-2V IMPRESSION: Unremarkable AP pelvis exam.
== END 2023-01-05 11:28 | disposition home or self-care (01) ==
LOC: HO.HOSX 11:27
PROVIDERS: PCP Internal Medicine; Visit Provider Orthopaedic Surgery
DX: M70.62 Trochanteric bursitis, left hip (principal)
CPT/HCPCS: 72170

== ENCOUNTER 2023-01-05 11:27 | Outpatient (AMB) | payer BC, SELFPAY ==
[2023-01-05 11:49] VITALS: BMI 27.3
--- NOTE | 2023-01-05 11:49 | MHC.OFFVIS ---
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 Patient reports that he has had ongoing pain in the left hip for about 2 montsh now. His pain is felt on the lateral aspect of the hip, his pain increases with ambluation. He is taking ibuprofen prn pain. \Has not tried physical therapy. Has occasional numbness and tingling in the local area. 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 He has pain with daily activity, worse with walking. He says he feels like he has a bruised feeling to his hip. He denies any pain when using stairs. He says his pain is mild now, having improved over the last few weeks. His pain used to be more severe. He takes Ibuprofen, with some relief, and denies any injections or PT. 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 Review of Systems Const All systems reviewed & are unremarkable except as noted in HPI and below Physical Exam Vital Signs: BMI result Body Mass Index 27.3 Const General: no acute distress, alert and awake Orientation/consciousness: patient oriented x3 HEENT Head: Yes normocephalic and Yes atraumatic Eyes EOM: EOMs intact bilaterally Resp Effort & Inspection: normal respiratory effort and able to speak in complete sentences Cardio Jugular venous distension: no JVD Skin General skin exam: turgor normal Rashes: no rashes Neuro General: patient oriented x3 Extrem Other: Left Hip: Full painless ROM Mild TTP over the greater trochanteric bursa Psych Appearance: grossly normal Affect: normal affect Attitude: cooperative Results Reviewed Results Reviewed: I personally reviewed relevant radiographs. nl hip radiographs Assessment & Plan Assessment & Plan (1) Greater trochanteric bursitis of left hip: Code(s): M70.62 - Trochanteric bursitis, left hip Plan: This is a 57 year old man with left hip greater trochanteric Bursitis. He has pain with daily activity, worse with prolonged ambulation. He denies any prior treatment, but says his pain has improved with time. I discussed his diagnosis and treatment options. I recommend PT, strengthening exercises, NSAIDs, and icing. No acute intervention warranted. I recommend IT band, hip flexor, and gluteal stretching exercises. He was provided with a handout of IT band exercises to perform at home. He can follow up prn. Plan Scribed for Gino Adame MD by Nikolas Marinelli, medical insurance verifier, on 01/05/23 at 12:00 PM, EST. Orders: Orders XR pelvis 1-2V Today M25.559 - Pain in unspecified hip Coding Level of Care Code New Pt Level 3 (14981) Diagnoses Greater trochanteric bursitis of left hip M70.62
== END 2023-01-05 12:04 | disposition home or self-care (01) ==
PROVIDERS: PCP Internal Medicine; Visit Provider Orthopaedic Surgery
DX: M70.62 Trochanteric bursitis, left hip (principal)
CPT/HCPCS: 99203

== ENCOUNTER 2023-03-28 10:48 | Outpatient (REF) | payer BC, SELFPAY ==
[2023-03-28 10:53] LABS: MANUAL DIFF FLAG NO
[2023-03-28 11:17] LABS: Basophils Absolute Auto 0.1 X10*3/uL (0.0-0.2); Basophils Percent Auto 0.6 % (0-2); Eosinophils Absolute Auto 0.3 X10*3/uL (0.0-0.4); Eosinophils Percent Auto 3.7 % (0-4); Hematocrit 47.5 % (42.0-52.0); Hemoglobin 15.9 g/dl (14.0-18.0); Imm Gran Abs Auto 0.04 X10*3/uL (0.00-0.03); Imm Gran Pct Auto 0.5 % (0.0-0.4); Lymphocytes Absolute Auto 2.6 X10*3/uL (1.2-4.9); Lymphocytes Percent Auto 30.5 % (20-40); Mean Corpuscular HGB Conc 33.5 g/dl (31.0-36.0); Mean Corpuscular Hemoglobin 29.6 pg (27.0-33.0); Mean Corpuscular Volume 88.3 fL (80.0-98.0); Mean Platelet Volume 10.4 fL (9.4-12.4); Monocytes Absolute Auto 0.6 X10*3/uL (0.1-1.2); Monocytes Percent Auto 7.4 % (2-11); Neutrophils Absolute Auto 4.8 x10*3/uL (2.0-8.3); Neutrophils Percent Auto 57.3 % (45-73); Platelet Count 287 X10*3/uL (160-400); Red Blood Count 5.38 X10*6/uL (4.60-5.80); Red Cell Distribution Width 12.9 % (11.0-16.0); White Blood Count 8.4 X10*3/uL (4.8-10.8)
[2023-03-28 11:18] LABS: Appearance Urine Clear; Color Urine Yellow; Glucose Urine UA Negative (Negative); Leukocyte Esterase Urine Trace (Negative); Nitrite Urine Negative (Negative); Specific Gravity - Urine 1.025 (1.005-1.025); UMIC TRIGGER UACC YES; Urine Blood Trace (Negative); Urine Ketones Negative (Negative); Urine Protein Negative (Neg-Trace)
[2023-03-28 11:25] LABS: Bacteria Urine None Seen (None Seen); Squamous Epithelial Cell Urine 0-2 /HPF (0-2); WBC Urine 0-5 /HPF (0-5)
[2023-03-28 11:47] LABS: Alanine Aminotransferase 44 U/L (0-40); Albumin Level 4.4 g/dL (3.5-5.0); Alkaline Phosphatase 64 U/L (39-117); Anion Gap 15 (12-20); Aspartate Amino Transferase 26 U/L (5-37); Bilirubin Total 0.4 mg/dL (0.0-1.0); Blood Urea Nitrogen 18 mg/dL (9-16); Carbon Dioxide 24 mmol/L (22-29); Chloride 109 mmol/L (96-108); Cholesterol 199 mg/dL (<200); Estimated Glomerular Filt Rate > 60; Glucose Fasting 140 mg/dL (60-99); HDL Cholesterol 38 mg/dL (>40); Sodium 144 mmol/L (135-145); Total Protein 7.6 g/dL (6.5-8.0); Triglycerides 565 mg/dL (<150)
[2023-03-28 11:49] LABS: PSA,Total (Free>4and<10) 1.43 ng/mL (0.00-4.00)
== END 2023-03-28 10:49 | disposition home or self-care (01) ==
LOC: HO.LNP 10:48
PROVIDERS: Visit Provider Internal Medicine
DX: Z00.00 Encounter for general adult medical examination without abnormal findings (principal); Z12.5 Encounter for screening for malignant neoplasm of prostate; E78.00 Pure hypercholesterolemia, unspecified; D72.829 Elevated white blood cell count, unspecified
CPT/HCPCS: 80053; 80061; 81001; 84153; 85025

== ENCOUNTER 2023-09-04 11:10 | Outpatient (REF) | payer BC, SELFPAY ==
[2023-09-04 12:07] LABS: Alanine Aminotransferase 26 U/L (0-40); Albumin Level 4.4 g/dL (3.5-5.0); Alkaline Phosphatase 59 U/L (39-117); Aspartate Amino Transferase 24 U/L (5-37); Bilirubin Direct 0.2 mg/dL (0.0-0.5); Bilirubin Total 0.5 mg/dL (0.0-1.0); Cholesterol 195 mg/dL (<200); HDL Cholesterol 43 mg/dL (>40); LDL Cholesterol Calculated 90 mg/dL (<100); Total Protein 7.5 g/dL (6.5-8.0); Triglycerides 312 mg/dL (<150)
[2023-09-04 12:21] LABS: Reflex LDLD? No
== END 2023-09-04 11:11 | disposition home or self-care (01) ==
LOC: HO.LNP 11:10
PROVIDERS: Visit Provider Internal Medicine
DX: E78.00 Pure hypercholesterolemia, unspecified (principal)
CPT/HCPCS: 80061; 80076

== ENCOUNTER 2024-02-20 21:36 | Emergency (ER) | payer BC, SELFPAY ==
--- NOTE | ~2024-02-20 | CT_ITS ---
EXAMINATION: CT ABDOMEN AND PELVIS WITHOUT CONTRAST CLINICAL INFORMATION: Right flank pain. COMPARISON: None available. TECHNIQUE: Multidetector volumetric imaging was performed from the superior aspect of the liver through the pubic symphysis. Sagittal and coronal reformatted images were obtained on the technologist's workstation. This CT examination was performed using dose optimization techniques as appropriate, variously including the following: *Automated exposure control *Adjustment of mA and/or kV according to patient size (this includes techniques or standardized protocols for targeted exams where dose is matched to indication/reason for exam; i.e. extremities or head) *Use of iterative reconstruction technique DLP: 532 mGy-cm FINDINGS: LUNG BASES: There is minimal scarring or subsegmental atelectasis at the lung bases. LIVER, GALLBLADDER, AND BILIARY TREE: The liver is normal in size, shape, and attenuation. No focal hepatic lesion or biliary ductal dilatation is present. The gallbladder is unremarkable with no evidence of radiopaque gallstones, gallbladder wall thickening, or obvious pericholecystic inflammatory changes. PANCREAS: Unremarkable. SPLEEN: Unremarkable. ADRENAL GLANDS: Unremarkable. KIDNEYS AND URETERS: The kidneys are normal in size, shape, and attenuation. There is a nonobstructing 4 mm calculus upper pole right kidney. There is mild right hydronephrosis and hydroureter extending into the pelvis to the level of a 2.5 mm calculus right ureterovesicular junction. BLADDER: Unremarkable. GASTROINTESTINAL TRACT: There is a single cecal diverticulum. The appendix is visualized and is within normal limits. ABDOMINAL WALL: No significant hernia is appreciated. LYMPH NODES: Normal. VASCULAR: There is atherosclerotic plaque of the abdominal aorta and proximal branches. PELVIC VISCERA: There is prostate gland hypertrophy. OSSEOUS STRUCTURES: There is diffuse moderate thoracolumbar degenerative changes. CT/CT abdomen pelvis wo IV con IMPRESSION: Mild right hydronephrosis and hydroureter extending into the pelvis to the level of a 2.5 mm calculus in the right ureterovesicular junction. Small nonobstructing right upper pole renal calculus. Fleischner guidelines were followed. Electronically signed by: Narendra Gay MD 02/21/2024 03:34 AM EDT
[2024-02-20 22:05] VITALS: BP 131/84; PULSE 79; RESP 18; TEMP 36.8; O2SAT 98; BMI 27.8
[2024-02-20 22:56] LABS: Hematocrit 45.3 % (42.0-52.0); Hemoglobin 15.7 g/dl (14.0-18.0); Mean Corpuscular HGB Conc 34.7 g/dl (31.0-36.0); Mean Corpuscular Hemoglobin 29.8 pg (27.0-33.0); Mean Platelet Volume 9.5 fL (9.4-12.4); Platelet Count 282 X10*3/uL (160-400); Red Blood Count 5.27 X10*6/uL (4.60-5.80); Red Cell Distribution Width 12.9 % (11.0-16.0); White Blood Count 12.4 X10*3/uL (4.8-10.8)
[2024-02-20 23:05] LABS: Appearance Urine Cloudy; Color Urine BROWN; Glucose Urine UA Negative (Negative); Leukocyte Esterase Urine Trace (Negative); Nitrite Urine Negative (Negative); UMIC TRIGGER UACC YES; Urine Blood Large (3+) (Negative); Urine Ketones Negative (Negative); Urine Protein 30 (1+) mg/dL (Neg-Trace)
[2024-02-20 23:09] LABS: Alanine Aminotransferase 31 U/L (0-40); Albumin Level 4.4 g/dL (3.5-5.0); Alkaline Phosphatase 54 U/L (39-117); Anion Gap 13 (12-20); Aspartate Amino Transferase 25 U/L (5-37); Bilirubin Total 0.6 mg/dL (0.0-1.0); Blood Urea Nitrogen 19 mg/dL (9-16); Calcium 9.9 mg/dL (8.4-10.2); Carbon Dioxide 23 mmol/L (22-29); Chloride 111 mmol/L (96-108); Creatinine Clr Calc Pharmacy 80.2; Estimated Glomerular Filt Rate > 60; Glucose Random 123 mg/dL (60-115); Potassium 4.2 mmol/L (3.3-5.1); Sodium 143 mmol/L (135-145); Total Protein 7.6 g/dL (6.5-8.0)
[2024-02-20 23:17] LABS: Bacteria Urine None Seen (None Seen); Hyaline Casts Urine 0-2 /LPF (0-2); RBC Urine >20 /HPF (0-2); Squamous Epithelial Cell Urine 0-2 /HPF (0-2); UACC Culture Trigger YES
--- NOTE | 2024-02-21 02:00 | ED_ITS ---
HPI - Male Genitourinary General Chief complaint: Urogenital-Male Stated complaint: Nausea/urinating blood Time Seen by Provider: 02/21/24 02:00 Source: patient Mode of arrival: ambulatory History of Present Illness ED Provider: Dr. Wilson HPI Narrative: right flank pain with N/V and diaphoresis, then had hematuria tonight. Patient has no history of kidney stone or UTI prior. Onset (ago): hour(s) Related Data Previous Rx's ?Medication ?Instructions ?Recorded erythromycin 5 mg/gram (0.5 %) eye 0.5 inch ophthalmic (eye) QID 7 08/02/21 ointment days #3.5 grams naproxen 500 mg tablet 500 mg PO BID PRN pain 10 days #20 08/02/21 tabs naproxen 500 mg tablet (Naprosyn) 500 mg PO BID #20 tabs 02/21/24 tamsulosin 0.4 mg capsule (Flomax) 0.4 mg PO BEDTIME #20 caps 02/21/24 Allergies Allergy/AdvReac Type Severity Reaction Status Date / Time No Known Allergies Allergy Unverified 02/20/24 22:06 [No Known Allergies*] Review of Systems 2 Review of Systems: Yes all other systems are reviewed and are negative Neurologic: Denies Sensory deficit (Neuro) [facility] Past Medical History Medical History No known health problems Social History Social History Advance Directives: No Advance Directives Information Provided: No Do you have a plan to hurt others: No Plan 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 occupational 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 Physical Exam 2 Vital Signs: Vital Signs: Last Vital Signs Temp 97.6 F 02/21/24 02:59 Pulse 76 02/21/24 02:59 Resp 18 02/21/24 02:59 BP 117/95 H 02/21/24 02:59 Pulse Ox 99 02/21/24 02:59 O2 Del Method Room Air 02/21/24 02:59 BMI result Body Mass Index 27.8 Const: General: healthy appearing Nutritional Appearance: average body habitus Orientation/consciousness: oriented to person and patient oriented x3 Limitations: no limitations HEENT: Head: Yes normal to inspection Ears: external ears normal General nose exam: Normal external nose present Mouth: Normal oral and palatal mucosa present and oropharynx normal Throat: Yes posterior oropharynx normal Eyes: General: appearance normal, both eyes and all related structures Neck: Other: supple Neck: Yes normal visual inspection Chest: Chest palpation & inspection: normal inspection of the chest Resp: Auscultation: clear to auscultation bilaterally Cardio: Jugular venous distension: no JVD Rate: regular rate Rhythm: r egular rhythm Heart sounds: S1 normal heart sound present and S2 normal heart sound present GI: Inspection: Yes normal to inspection Palpation (GI): Soft to palpation, nontender and No hepatosplenomegaly present Auscultation: normal bowel sounds : General: Yes no CVA tenderness Back/Spine/Pelvis: Back: no CVA tenderness Skin: General skin exam: no rashes or lesions noted Neuro: General: oriented to person and patient oriented x3 Cranial nerves: Yes CN's II-XII intact bilaterally Motor exam (neuro): 5/5 motor strength present throughout Sensory Exam: No Sensory deficit (Neuro) Extrem: General: Yes normal to inspection Psych: Appearance: grossly normal Course Reevaluation(s) Reevaluation #1: CT shows a 2.5mm stone on the right with mild hydroureter Time: 04:12 Medical Decision Making Differential Diagnosis Differential Diagnoses: The differential diagnosis associated with the presentation includes (renal colic, UTI, hematuria, pyelonephritis) Admission/Observation Consideration of admission/observation: Escalation of care including admission/observation considered (upon arrival patient considered for admission) Lab Data 02/20/24 22:50 02/20/24 22:50 Labs: Lab Results 02/20/24 02/20/24 Range/Units 22:50 22:54 WBC 12.4 H (4.8-10.8) X10*3/uL RBC 5.27 (4.60-5.80) X10*6/uL Hgb 15.7 (14.0-18.0) g/dl Hct 45.3 (42.0-52.0) % MCV 86.0 (80.0-98.0) fL MCH 29.8 (27.0-33.0) pg MCHC 34.7 (31.0-36.0) g/dl RDW 12.9 (11.0-16.0) % Plt Count 282 (160-400) X10*3/uL MPV 9.5 (9.4-12.4) fL Absolute Nucleated RBC 0.000 (0.0-0.012) X10*3/uL Nucleated RBC % (auto) 0.0 (0.0-0.2) /100WBC Sodium 143 (135-145) mmol/L Potassium 4.2 (3.3-5.1) mmol/L Chloride 111 H (96-108) mmol/L Carbon Dioxide 23 (22-29) mmol/L Anion Gap 13 (12-20) BUN 19 H (9-16) mg/dL Creatinine 1.12 (0.5-1.4) mg/dL Estim Creat Clear Calc 80.2 Estimated GFR > 60 Random Glucose 123 H (60-115) mg/dL Calcium 9.9 (8.4-10.2) mg/dL Total Bilirubin 0.6 (0.0-1.0) mg/dL AST 25 (5-37) U/L ALT 31 (0-40) U/L Alkaline Phosphatase 54 (39-117) U/L Total Protein 7.6 (6.5-8.0) g/dL Albumin 4.4 (3.5-5.0) g/dL Urine Color BROWN Urine Appearance Cloudy Urine pH 7.0 (5.0-9.0) Ur Specific Franklin 1.020 (1.005-1.025) Urine Protein 30 (1+) H (Neg-Trace) mg/dL Urine Glucose (UA) Negative (Negative) mg/dL Urine Ketones Negative (Negative) mg/dL Urine Blood Large (3+) H (Negative) Urine Nitrite Negative (Negative) Ur Leukocyte Esterase Trace H (Negative) Urine RBC >20 H (0-2) /HPF Urine WBC 11-20 H (0-5) /HPF Ur Squamous Epith Cells 0-2 (0-2) /HPF Urine Bacteria None Seen (None Seen) Hyaline Casts 0-2 (0-2) /LPF Independent Interpretation I performed an independent interpretation of an: CT Scan (No hydro or stone seen) Radiology Impression Discussion of test interpretation with radiology: I have reviewed the radiologist's reading. (Radiology read was 2.5mm with slight hydro) Prescription Management I considered prescription management with: Antibiotic (abx not given as no evidence of UTI) Discharge Plan Discharge Clinical Impression: Renal colic Patient Disposition: Home, Self-Care Instructions: Renal Colic (ED) Prescriptions: New naproxen [Naprosyn] 500 mg tablet 500 mg PO BID Qty: 20 0RF tamsulosin [Flomax] 0.4 mg capsule 0.4 mg PO BEDTIME Qty: 20 0RF No Action naproxen 500 mg tablet 500 mg PO BID PRN (Reason: pain) 10 Days Qty: 20 0RF erythromycin 5 mg/gram (0.5 %) ointment 0.5 inch ophthalmic (eye) QID 7 Days Qty: 3.5 0RF Rx Instructions: place in right eye Referrals: Kwaku Cervantes MD [Physician] - 1 week Print Language: New Zealander
[2024-02-21 02:59] VITALS: BP 117/95; PULSE 76; RESP 18; TEMP 36.4; O2SAT 99
--- NOTE | 2024-02-21 04:23 | PC.NURSE ---
RN called the pt to provide an update on prescriptions sent in on his behalf. there was no answer on his cell phone, MINESH left
--- NOTE | 2024-02-21 04:27 | PC.NURSE ---
late entry for 0315 RN to bedside s/p recommendation/request of another RN. Pt was found to be seated on the edge of the bed, fully dressed and on his cell phone. He stated that he was exhausted, had been here for 8 hours and was wanting to go home. This RN attempted to encourage the pt to stay but he declined. Pt confirmed that he has the patient portal and requested that staff call him with any remarkable updates/concerns. He was awake, alert, oriented adn well appearing without distress noted. He was observed to independently ambulate out of the ED with even and steady gait
[2024-02-21 04:36] VITALS: BP 117/95; PULSE 76; RESP 18; TEMP 36.4; O2SAT 99
== END 2024-02-21 03:15 | disposition home or self-care (01) ==
PROVIDERS: Emergency Provider Emergency Medicine; PCP Internal Medicine
DX: N23 Unspecified renal colic (principal); R11.2 Nausea with vomiting, unspecified; Z79.899 Other long term (current) drug therapy
CPT/HCPCS: 36415; 74176; 80053; 81001; 81003; 85027; 87086; 99283; 99284

== ENCOUNTER 2024-04-02 11:21 | Outpatient (REF) | payer BC, SELFPAY ==
[2024-04-02 11:24] LABS: MANUAL DIFF FLAG NO
[2024-04-02 11:30] LABS: Basophils Absolute Auto 0.1 X10*3/uL (0.0-0.2); Basophils Percent Auto 0.6 % (0-2); Eosinophils Absolute Auto 0.4 X10*3/uL (0.0-0.4); Eosinophils Percent Auto 3.2 % (0-4); Hemoglobin 15.9 g/dl (14.0-18.0); Imm Gran Abs Auto 0.07 X10*3/uL (0.00-0.03); Imm Gran Pct Auto 0.6 % (0.0-0.4); Lymphocytes Absolute Auto 2.2 X10*3/uL (1.2-4.9); Lymphocytes Percent Auto 19.3 % (20-40); Mean Corpuscular HGB Conc 33.8 g/dl (31.0-36.0); Mean Corpuscular Volume 88.7 fL (80.0-98.0); Mean Platelet Volume 10.3 fL (9.4-12.4); Monocytes Percent Auto 8.7 % (2-11); Neutrophils Absolute Auto 7.8 x10*3/uL (2.0-8.3); Neutrophils Percent Auto 67.6 % (45-73); Platelet Count 334 X10*3/uL (160-400); Red Cell Distribution Width 13.1 % (11.0-16.0); White Blood Count 11.5 X10*3/uL (4.8-10.8)
[2024-04-02 11:31] LABS: Appearance Urine Clear; Color Urine Yellow; Glucose Urine UA Negative (Negative); Leukocyte Esterase Urine Negative (Negative); Nitrite Urine Negative (Negative); PH 6.5 (5.0-9.0); Urine Blood Negative (Negative); Urine Ketones Negative (Negative); Urine Protein Negative (Neg-Trace)
[2024-04-02 11:41] LABS: Bacteria Urine None Seen (None Seen); Hyaline Casts Urine 0-2 /LPF (0-2); RBC Urine 0-2 /HPF (0-2); Squamous Epithelial Cell Urine 0-2 /HPF (0-2); WBC Urine 0-5 /HPF (0-5)
[2024-04-02 12:18] LABS: Alanine Aminotransferase 23 U/L (0-40); Albumin Level 4.4 g/dL (3.5-5.0); Alkaline Phosphatase 65 U/L (39-117); Anion Gap 17 (12-20); Aspartate Amino Transferase 23 U/L (5-37); Bilirubin Total 0.6 mg/dL (0.0-1.0); Blood Urea Nitrogen 19 mg/dL (9-16); Calcium 9.8 mg/dL (8.4-10.2); Carbon Dioxide 27 mmol/L (22-29); Chloride 105 mmol/L (96-108); Cholesterol 181 mg/dL (<200); Estimated Glomerular Filt Rate > 60; Glucose Fasting 85 mg/dL (60-99); HDL Cholesterol 44 mg/dL (>40); LDL Cholesterol Calculated 106 mg/dL (<100); Potassium 4.2 mmol/L (3.3-5.1); Sodium 145 mmol/L (135-145); Total Protein 7.7 g/dL (6.5-8.0); Triglycerides 157 mg/dL (<150)
[2024-04-02 12:43] LABS: PSA,Total (Free>4and<10) 1.82 ng/mL (0.00-4.00)
== END 2024-04-02 11:22 | disposition home or self-care (01) ==
LOC: HO.LNP 11:21
PROVIDERS: Visit Provider Internal Medicine
DX: Z00.00 Encounter for general adult medical examination without abnormal findings (principal); E78.00 Pure hypercholesterolemia, unspecified; D72.829 Elevated white blood cell count, unspecified; Z12.5 Encounter for screening for malignant neoplasm of prostate
CPT/HCPCS: 80053; 80061; 81001; 84153; 85025

== ENCOUNTER 2024-05-23 13:48 | Outpatient (AMB) | payer BC, SELFPAY ==
--- OUTSIDE RECORDS SUMMARY | 2024-05-23 13:51 | XMS_ITS | Data Portability ---
Author Organization STEPHANIE Leonardo s, [address] Address [address] [place] [address] Care Team Providers Care Ear Mold Laboratory Technician Name Role Phone DIANAPETER NAVARRETE Primary Care Provider [phone] Assessment No assessment recorded. Plan of Treatment Reminders Order Date Submit Date Provider Last Modified By Organization Details Last Modified Time Details Appointments None recorded. Lab None recorded. Referral None recorded. Procedures None recorded. Surgeries None recorded. Imaging None recorded. Medication Orders doxycycline hyclate 100 mg capsule 2022 023 [id number], [address] [place], [address], 10:24:18 mupirocin 2 % topical ointment 2022 023 [id number], [address] [place], [address], 10:24:18 Patient TargetsNo targets recorded. Patient Instructions Encounter Date Encounter Id Patient Instructions Last Modified By Organization Details Last Modified Time 01/28/2023 [id number] folliculitis: care instructions [email or web address] Not available 01/28/2023 10:24:15 Take the antibiotic as prescribed. Take an over the counter probiotic daily while taking the antibiotic. Use the ointment sparingly on the larger pustules as prescribed. Wash face with soap and water daily. Avoid shaving until condition clears and use a new razor. See printed instructions. Seek Emergency Medical evaluation for any increased pain, spreading redness, fever, chills, abscess formation or other worsening symptoms. [email or web address] Not available 01/28/2023 10:25:59 Reason for Referral None Reported. Problems Name Problem SNOMED Code Status Onset Date Resolution Date Notes Provider Name and Address Organization Details Recorded Time Hypercholestero sergeia 74395167 Active 2022 STEPHANIE Robles [facility] 3 10:04:43 Problem Notes None recorded. Procedures Surgical History Date Name Laterality Status Provider Name and Address Organization Details Recorded Time Hernia Repair completed SHANNAN Huston [facility] 01/28/2023 10:06:41 Imaging Results None recorded. Procedure Notes None recorded. Medical Equipment None Reported. Allergies No known drug allergies Medications Name Sig Start Date Stop Date Status Note LastModified by Organization Details LastModified Time doxycycline hyclate 100 mg capsule Take 1 capsule twice a day by oral route for 7 days. 2022 active Not Available Not Available Not Avai lable atorvastati n 20 mg tablet TAKE 1 TABLET BY MOUTH EVERY DAY active Not Available Not Available No t Available sulfamethox azole 800 mg-trimetho prim 160 mg tablet TAKE 1 TABLET BY MOUTH TWICE A DAY FOR 7 DAYS 01/28 completed Not Available Not Available Not Available cephalexin 500 mg capsule TAKE 1 CAPSULE BY MOUTH TWICE A DAY FOR 7 DAYS 01/28 completed Not Available Not Available Not Available mupirocin 2 % topical ointment APPLY A SMALL AMOUNT TO THE AFFECTED AREA BY TOPICAL ROUTE 3 TIMES PER DAY 2022 active Not Available Not Available Not Avai lable neomycin 3.5 mg/g-polymy tiffany B 10,000 unit/g-dexa meth 0.1 % eye oint APPLY 1/4 INCH STRIP TO THE RIGHT EYE 3 TIMES A DAY 01/28 completed Not Available Not Available Not Available Vitals Date Recorded Respiratory rate Body height Body mass index (BMI) Body weight Body temperature Oxygen saturation Oxygen saturation in Arterial blood by Pulse oximetry Heart rate Systolic blood pressure Diastolic blood pressure Provider Name and Address Organization Details Last Updated DateTime 3 16 /min 177.8 cm 27.3 kg/m2 14072.5 5 g 97.5 [degF] 97 % 97 % 83 /min 115 mm[Hg] 82 mm[Hg] SHANNAN Huston [facility] 3 10:08:24 Social History Question Answer Notes LastModified by Organizat ion Details LastModified Time Tobacco Smoking Status Never Smoker STEPHANIE Robles - [facility] 01/28/2023 10:06:06 What Is Your Level Of Alcohol Consumption? Occasional [email or web address] Information not available 01/28/2023 Which Illicit Or Recreational Drugs Have You Used? Marijuana Information not available 01/28/2023 Do You Use Any Illicit Or Recreational Drugs? Yes [email or web address] Information not available 01/28/2023 Have You Recently Traveled Abroad? Yes Antonieta [email or web address] Information not available 01/28/2023 Do You Or Have You Ever Used Any Other Forms Of Tobacco Or Nicotine? No [email or web address] Information not available 01/28/2023 Sex: Unknown Functional Status None recorded. Mental Status None recorded. Family History Relationship Description Onset Age of this Age Resolved Age Notes LastModified by Organization Details LastModified Time Unspecified Relation Heart disease [email or web address] Not available 2022 10:05:04 Unspecified Relation Parkinson's disease [email or web address] Not available 2022 10:05:11 Unspecified Relation Carcinoma of prostate [email or web address] Not available 2022 10:05:24 Medical History No medical history recorded. Past Encounters Encounter ID Performer Location Encounter Start Date Encounter Closed Date Diagnosis/Indication Diagnosis SNOMED-CT Code Diagnosis ICD10 Code [id number] [address] [place] [address] 11/30/2019 15:57:43 11/30/2019 17:43:45 [id number] [address] [place] [address] 11/26/2016 09:16:14 11/26/2016 09:45:24 [id number] [address] [place] [address] 10/30/2016 09:48:23 10/30/2016 10:24:14 [id number] [place] [address] [place] [address] 01/28/2023 09:30:20 01/28/2023 10:29:39 Acute folliculitis 835687717 L73.9 Health Concerns Section Related Observation LastModified by Organization Detai ls LastModified Time None Recorded Concern Status LastModified by Organization Details LastModified Time None Recorded Advance Directives Directive None Recorded Payers Encounter Date Sequence Insurance Name Policy Number Policy Che[place] Covered Member ID Che[place] Member ID Guarantor Name 10/30/2016 1 [place] [facility] [id number] Ambrose P Rovero [id number] Ambrose P Rovero 11/26/2016 1 [place] [facility] [id number] Ambrose P Rovero [id number] Ambrose P Rovero 11/30/2019 1 [place] [facility] [id number] Ambrose P Rovero [id number] Ambrose P Rovero 01/28/2023 1 [place] [facility] [id number] Ambrose P Rovero [id number] Ambrose P Rovero Notes Date Note Type Note Provider Name and Address Organization Details Recorded Time 3 text/html UC Rash/Skin LesionReported bypatient.source of patient informationInformation obtained from patient; Patient arrived at Urgent Care ambulatory Location:face; neck Quality:itchy;painful;red;s preading Severity:moderate Duration:5 days Context:no new detergent or skin product; no recent change in medication; no expsoure to new clothes/jewelry; no recent travel; no recent illness; not affiliated with chemicals/pesticides Alleviating Factors:nothing gives relief Associated Symptoms:no fever; no fatigue Treatment History:no history of treatmentNotes:57 year old male presenting for evaluation of a mildly pruritic, somewhat painful, papular and pustular rash on his face extending to his anterior neck region getting worse for the past week. Symptoms began after shaving with a razor. No fever, chills, purulent drainage, bleeding, lip or tongue swelling, hives, trouble breathing, vomiting, dizziness, headache or neck stiffness. Li Carpenter MD [address] [facility] [place], [address], [place] - [facility] 01/28/2023 10:32:59
--- OUTSIDE RECORDS SUMMARY | 2024-05-23 13:51 | XMS_ITS | Patient Health Record ---
Author Organization Kody Servin MD Address [address] [place], [place] [id number] Care Team Providers Care Farm Contractor Name Role Phone Kody Servin Primary Care Provider [phone] ALLERGIES No Known Allergies RESULTS Component Value Reference Range Notes Lulu Abrams Reviewed date:09/04/2023 12:29:47 PM Interpretation: Performing Lab:[facility], [address] [place] [phone] Notes/Report: Lulu Abrams See Note Specimen held untested for 24 hours; Call to request Chemistry testing. Liver Panel Reviewed date:09/04/2023 12:29:39 PM Interpretation: Performing Lab:[address] [address] Notes/Report: Bilirubin Total 0.5 0.0-1.0 mg/dL Bilirubin Direct 0.2 0.0-0.5 mg/dL Aspartate Amino Transferase 24 5-37 U/L Alanine Aminotransferase 26 0-40 U/L Total Protein 7.5 6.5-8.0 g/dL Albumin Level 4.4 3.5-5.0 g/dL Alkaline Phosphatase 59 39-117 U/L Lipid Panel with Reflex Reviewed date:09/04/2023 12:29:04 PM Interpretation: Performing Lab:[facility], [address] [place] [phone] Notes/Report: Triglycerides 312 <150 mg/dL Desirable Triglyceride: less than 150 mg/dL Borderline High Triglyceride 150-199 mg/dL High Triglyceride: 200-499 mg/dL Very High Triglyceride: greater than or equal to 5OO mg/dL Cholesterol 195 <200 mg/dL Desirable Cholesterol: less than 200 mg/dL Borderline High Cholesterol: 200-239 mg/dL High Cholesterol: greater than 239 mg/dL LDL Cholesterol Calculated 90 <100 mg/dL Desirable LDL: less than 100 mg/dL Near Optimal/Above Optimal LDL: 110-129 mg/dL Borderline High LDL: 130-159 mg/dL High LDL: 160-189 mg/dL Very High LDL: greater than or equal to 190 mg/dL HDL Cholesterol 43 >40 mg/dL Desirable HDL: greater than 40 mg/dL Note: This HDL assay may give artificially low results in patients with liver disease. Complete Blood Count no Diff Reviewed date:02/22/2024 12:24:16 PM Interpretation: Performing Lab:[facility], [address] [place] [phone] Notes/Report: White Blood Count 12.4 4.8-10.8 X10*3/uL Red Blood Count 5.27 4.60-5.80 X10*6/uL Hemoglobin 15.7 14.0-18.0 g/dl Hematocrit 45.3 42.0-52.0 % Mean Corpuscular Volume 86.0 80.0-98.0 fL Mean Corpuscular Hemoglobin 29.8 27.0-33.0 pg Mean Corpuscular HGB Conc 34.7 31.0-36.0 g/dl Red Cell Distribution Width 12.9 11.0-16.0 % Platelet Count 282 160-400 X10*3/uL Mean Platelet Volume 9.5 9.4-12.4 fL NRBC Pct Auto 0.0 0.0-0.2 /100WBC NRBC Abs Auto 0.000 0.0-0.012 X10*3/uL Comprehensive Met. Panel Reviewed date:02/22/2024 12:24:02 PM Interpretation: Performing Lab:[address] [address] Notes/Report: Sodium 143 135-145 mmol/L Potassium 4.2 3.3-5.1 mmol/L Chloride 111 96-108 mmol/L Carbon Dioxide 23 22-29 mmol/L Anion Gap 13 12-20 Blood Urea Nitrogen 19 9-16 mg/dL Creatinine 1.12 0.5-1.4 mg/dL Creatinine Clr Calc Pharmacy 80.2 eGFR (calculated from the MDRD study equation) and eCrCl (calculated from the Cockcroft-Gault equation) are based on different parameters and may not yield comparable results. If eCrCl result is absurd, please check patient's height/weight. Estimated Glomerular Filt Rate > 60 NOTE: For -Tristanian individuals, multiply the result by 1.210. Chronic Kidney Disease: Estimated GFR < 60 mL/min/1.73m2 Severe Kidney Disease: Estimated GFR < 15 mL/min/1.73m2 Glucose Random 123 60-115 mg/dL Calcium 9.9 8.4-10.2 mg/dL Bilirubin Total 0.6 0.0-1.0 mg/dL Aspartate Amino Transferase 25 5-37 U/L Alanine Aminotransferase 31 0-40 U/L Total Protein 7.6 6.5-8.0 g/dL Albumin Level 4.4 3.5-5.0 g/dL Alkaline Phosphatase 54 39-117 U/L Urine Culture Reviewed date:02/22/2024 12:24:52 PM Interpretation: Performing Lab:[facility], [address] [place] [phone] Notes/Report: Urine Culture Report Result Urine Culture < 10,000 cfu/ml UA ClnCatch+Micro w/rflx Cul t Reviewed date:04/11/2024 08:22:50 AM Interpretation:[facility] 04/09 Performing Lab:[address] [address] Notes/Report: [id number] Urine, Clean Catch Color Urine BROWN Appearance Urine Cloudy PH 7.0 5.0-9.0 Glucose Urine UA Negative Negative mg/dL Urine Blood Large (3+) Negative Specific [place] - Urine 1.020 1.005-1.025 Urine Protein 30 (1+) Neg-Trace mg/dL Urine Ketones Negative Negative mg/dL Nitrite Urine Negative Negative Leukocyte Esterase Urine Trace Negative RBC Urine >20 0-2 /HPF WBC Urine 11-20 0-5 /HPF Squamous Epithelial Cell Urine 0-2 0-2 /HPF Bacteria Urine None Seen None Seen Hyaline Casts Urine 0-2 0-2 /LPF CT abdomen pelvis wo con Reviewed date:02/21/2024 02:18:55 PM Interpretation: Performing Lab: Notes/Report: [address] [address] [address] Scan Report Signed Patient: Ambrose Ward MR#: [id number] : 1965 Acct:[id number] Age/Sex: 58 / M ADM Date: 02/20/24 Loc: .ED Attending Dr: Ordering Physician: Campbell Wilson MD Date of Service: 02/21/24 Procedure(s): CT abdomen pelvis wo IV con Accession Number(s): [id number] cc: Kody Servin MD; Campbell Wilson MD EXAMINATION: CT ABDOMEN AND PELVIS WITHOUT CONTRAST CLINICAL INFORMATION: Right flank pain. COMPARISON: None available. TECHNIQUE: Multidetector volumetric imaging was performed from the superior aspect of the liver through the pubic symphysis. Sagittal and coronal reformatted images were obtained on the technologist's workstation. This CT examination was performed using dose optimization techniques as appropriate, variously including the following: *Automated exposure control *Adjustment of mA and/or kV according to patient size (this includes techniques or standardized protocols for targeted exams where dose is matched to indication/reason for exam; i.e. extremities or head) *Use of iterative reconstruction technique DLP: 532 mGy-cm FINDINGS: LUNG BASES: There is minimal scarring or subsegmental atelectasis at the lung bases. LIVER, GALLBLADDER, AND BILIARY TREE: The liver is normal in size, shape, and attenuation. No focal hepatic lesion or biliary ductal dilatation is present. The gallbladder is unremarkable with no evidence of radiopaque gallstones, gallbladder wall thickening, or obvious pericholecystic inflammatory changes. PANCREAS: Unremarkable. SPLEEN: Unremarkable. ADRENAL GLANDS: Unremarkable. KIDNEYS AND URETERS: The kidneys are normal in size, shape, and attenuation. There is a nonobstructing 4 mm calculus upper pole right kidney. There is mild right hydronephrosis and hydroureter extending into the pelvis to the level of a 2.5 mm calculus right ureterovesicular junction. BLADDER: Unremarkable. GASTROINTESTINAL TRACT: There is a single cecal diverticulum. The appendix is visualized and is within normal limits. ABDOMINAL WALL: No significant hernia is appreciated. LYMPH NODES: Normal. VASCULAR: There is atherosclerotic plaque of the abdominal aorta and proximal branches. PELVIC VISCERA: There is prostate gland hypertrophy. OSSEOUS STRUCTURES: There is diffuse moderate thoracolumbar degenerative changes. CT/CT abdomen pelvis wo IV con IMPRESSION: Mild right hydronephrosis and hydroureter extending into the pelvis to the level of a 2.5 mm calculus in the right ureterovesicular junction. Small nonobstructing right upper pole renal calculus. Fleischner guidelines were followed. Electronically signed by: Narendra Gay MD 02/21/2024 03:34 AM EDT Dictated By: Narendra Gay MD Signed By: <Electronically signed by Narendra Gay MD in OV> 02/21/24 0334 DD/ 0201 TD/TT: 02/21/24 0237 Patient Account Representative: Complete Blood Count Auto Di ff Reviewed date:04/02/2024 12:19:26 PM Interpretation: Performing Lab:[facility], [address] [place] [phone] Notes/Report: White Blood Count 11.5 4.8-10.8 X10*3/uL [...] NRBC Abs Auto 0.000 0.0-0.012 X10*3/uL Comprehensive [place]. Panel Fa st Reviewed date:04/02/2024 12:39:33 PM Interpretation: Performing Lab:[facility], [address] [place] [phone] Notes/Report: Sodium 145 135-145 mmol/L Potassium 4.2 3.3-5.1 mmol/L Chloride 105 96-108 mmol/L Carbon Dioxide 27 22-29 mmol/L Anion Gap 17 12-20 Blood Urea Nitrogen 19 9-16 mg/dL Creatinine 0.91 0.5-1.4 mg/dL Estimated Glomerular Filt Rate > 60 NOTE: For -Tristanian individuals, multiply the result by 1.210. Chronic [...] Panel Reviewed date:04/02/2024 12:24:41 PM Interpretation: Performing Lab:[address] [address] Notes/Report: Triglycerides 157 <150 mg/dL Desirable Triglyceride: [...] disease. PSA,Total (Free>4and<10) Reviewed date:04/11/2024 08:23:06 AM Interpretation:[facility] 04/09 PSA Performing Lab:[address] [address] Notes/Report: PSA,Total (Free>4and<10) 1.82 0.00-4.00 ng/mL A [...] t Reviewed date:04/02/2024 12:42:14 PM Interpretation: Performing Lab:[address] [address] Notes/Report: Urine, Clean Catch Color Urine Yellow Appearance Urine Clear PH 6.5 5.0-9.0 Glucose Urine UA Negative Negative mg/dL Urine Blood Negative Negative Specific [place] - Urine 1.020 1.005-1.025 Urine Protein Negative Neg-Trace mg/dL Urine Ketones Negative Negative mg/dL Nitrite Urine Negative Negative Leukocyte Esterase Urine Negative Negative RBC Urine 0-2 0-2 /HPF WBC Urine 0-5 0-5 /HPF Squamous Epithelial Cell Urine 0-2 0-2 /HPF Bacteria Urine None Seen None Seen Hyaline Casts Urine 0-2 0-2 /LPF REASON FOR REFERRAL Reason acute abscess Diagnosis 1 Acute abscess (L02.9 1) Referral Organization Kody Servin MD Referring Provider First Name Kody Referring Provider Last Name Gareth Referring Provider Speciality Internal M edicine Referred Provider Blanco Koenig Referred Provider Specialty Surgery General Notes Cuca Chaudhry 09:27:11 AM EDT > juan faxed with ins referral Referral Priority Routine Referral Appointment Date 02/07/2024 MEDICATIONS Medication SIG (Take, Route, Frequency, Duration) Notes Start Date End Date Status Atorvastatin Calcium 40 MG TAKE 1 TABLET BY MOUTH EVERY DAY Active Aspirin 81 MG 1 tablet Orally Once a day for 30 day(s) Not-Taking Flonase 50 MCG/ACT 1 spray in each nost ril Nasally Once a day for 30 day(s) 10/15/2013 Not-Taking IMMUNIZATIONS Vaccine Route Administration Date Status Comme nts Flu Vaccine IM Intramuscular 05/01/2012 Administered Flu Vaccine Unknown 02/03/2013 Administered [facility] Fluarix Quadrivalent IM Intramuscular 04/11/2016 Administe red Fluarix Quadrivalent IM Intramuscular 07/03/2018 Administe red SARS-COV-2 Moderna Unknown 08/03/2020 Administered SARS-COV-2 Moderna Unknown 09/12/2020 Administered SARS-COV-2 Moderna Unknown 04/28/2021 Administered Fluarix Quadrivalent IM Intramuscular 03/25/2022 Administe red Flu Vaccine Unknown 07/22/2014 Refused Flu Vaccine Unknown 03/19/2015 Refused going to get flu shot at work Fluarix Quadrivalent Unknown 04/04/2023 Refused Fluarix Quadrivalent - 150 Unknown 04/09/2024 Refused SOCIAL HISTORY Tobacco Use: Social History Observation Description Date Details (start date - stop date) Never Smoker NA - NA Sex Assigned At : Social History Observation Description Sex Assigned At Unknown Tobacco Use/Smoking Question Answer Notes Patient is a nonsmoker Additional Findings: Tobacco Non-User Cu rrent non-smoker, currently using no form of tobacco Alcohol Screen Question Answer Notes Did you have a drink containing alcohol in the p ast year? No Points 0 Interpretation Negative PROBLEMS Problem Type ICD Code Onset Dates Problem Status W/U Status Risk SNOMED Code Notes Problem Atherosclerosis of abdominal aorta (I70.0) Active confirmed 501496449 Problem Acute recurrent maxillary sinusitis (J01.01) Active confirmed 24165558188091740 Problem History of hematuria (Z87.448) Active confirmed 374205079 Problem Leukocytosis, unspecified type (D72.829) Active confirmed 015584292 Problem Pure hypercholesterolemia (E78.00) Active confirmed 844840339 Problem Pterygium, unspecifi ed (H11.009) Active confirmed 13633872 VITAL SIGNS Blood pressure diastolic 80 mm Hg 04/09/2024 vianey ght is down 6 pounds since 02-06-24 Height 70 in 04/09/2024 weight is down 6 pounds since 02-06-24 Blood pressure systolic 110 mm Hg 04/09/2024 weig ht is down 6 pounds since 02-06-24 Weight 194 lbs 04/09/2024 weight is down 6 pounds since 02-06-24 BMI 27.83 kg/m2 04/09/2024 weight is down 6 pounds since 02-06-24 Encounters Encounter Location Date Provider Diagnosis Kody Servin MD [address] [place] [id number] 04/09/2024 Kody Servin Pure hypercholestero lemia E78.00 ; Annual physical exam Z00.00 ; Atherosclerosis of abdominal aorta I70.0 and Depression screening Z13.31 Kody Servin MD [address] [place] [id number] 02/06/2024 Kody Srevin Acute abscess L02.91 Kody Servin MD [address] [place] [id number] 09/04/2023 Kody Servin Pure hypercholestero lemia E78.00 Kody Servin MD [address] [place] [id number] 04/02/2024 Kody Servin Blood tests for rout ine general physical examination Z00.00 ; Pure hypercholesterolemia E78.00 and Leukocytosis, unspecified type D72.829 Kody Servin MD [address] [place] [id number] 01/30/2024 Kody Servin Acute abscess L02.91 Kody Servin MD [address] [place] [id number] 02/22/2024 Kody Servin MD [address] [place] [id number] 09/21/2023 Kody Servin Acute recurrent maxi llary sinusitis J01.01 ASSESSMENTS Encounter Date Diagnosis Assessment Notes Treatment Notes Treatment Clinical Notes 04/09/2024 Annual physical exam (ICD-10 - Z00.00) labs reviewed and discussed with patient 04/09/2024 Pure hypercholestero lemia (ICD-10 - E78.00) will get closer to 75 02/06/2024 Acute abscess (ICD-1 0 - L02.91) will continue current regiment, is resolving nicely and does not appear that he will need surgery, will continue to monitor, advised to continue warm compresses and return if sx's do not continue to improve and resolve completely 09/04/2023 Pure hypercholestero lemia (ICD-10 - E78.00) 04/02/2024 Pure hypercholestero lemia (ICD-10 - E78.00) 04/02/[address] ine general physical examination (ICD-10 - Z00.00) 01/30/2024 Acute abscess (ICD-1 0 - L02.91) warm compresses. referral to dr kraus next week in case it doesn't resolve, patient verbalized understanding of medication and directions for use 09/21/2023 Acute recurrent maxi llary sinusitis (ICD-10 - J01.01) patient verbalized understanding of medication anddirections for use 04/09/2024 Atherosclerosis of abdominal aorta (ICD-10 - I70.0) increase atorvastin to 40, patient verbalized understanding of change in dose of medication 04/02/2024 Leukocytosis, unspec ified type (ICD-10 - D72.829) 04/09/2024 Depression screening (ICD-10 - Z13.31) negative screen PLAN OF TREATMENT Pending Test Test Name Order Date CT ABD & PELVIS WITH CONTRAST 09/27/2011 XR GI SERIES 01/14/2019 Future Test Test Name Order Date Liver Panel 07/10/2024 Lipid Panel 07/10/2024 Next Appt Details Provider Name:Kody Pan García ier, 07/11/2024 07:30:00 AM, [address] [place] [address], [address], [phone], Provider Name:Kody Perla Raquel ier, 04/04/2025 07:15:00 AM, [address] [place] [address], [place] [address], [place], [place], [phone], Provider Name:Kody Hokamla ier, 04/11/2025 02:30:00 PM, [address] [place] [address], [address], [phone], Insurance Providers Payer Name Payer Address Payer Phone Subscriber Number Group Number Insured Name Patient Relationship to Insured Coverage Start Date Coverage End Date [employer] [address] [place], [place] [id number] Ambrose Ward Self - patient is the insured MEDICAL (GENERAL) HISTORY Medical History History ICD Code back pain. cysto 2012 neg pteryigium operated by Dr Silveira mass ey e and ear Colonoscopy done 07/26/17 Dr Eng,rep eat 10 years
--- OUTSIDE RECORDS SUMMARY | 2024-05-23 13:51 | XMS_ITS ---
Author Organization Kody Servin MD Address [address] [place] [phone] Care Team Providers Care Collar Setter Name Role Phone GarethKody Primary Care Provider REASON FOR VISIT ER Encounters Encounter Location Date Provider Diagnosis Kody Servin MD [address] [facility] [address] [place] [phone] 02/22/2024 Kody Servin PLAN OF TREATMENT Next Appt Details Provider Name:Kody lopez, 07/11/2024 07:30:00 AM, [address] [place] [address], Suite [facility], [place], [place], [phone], Provider Name:Kody lopez, 04/04/2025 07:15:00 AM, [address] [place] [address], Suite [facility], [place], [place], [phone], Provider Name:Kody lopez, 04/11/2025 02:30:00 PM, [address], [address], [place], [phone],
--- OUTSIDE RECORDS SUMMARY | 2024-05-23 13:51 | XMS_ITS ---
Author Organization Kody Servin MD Address [address] [place], [place] [phone] Care Team Providers Care Packing Machine Tender Name Role Phone Gareth Kody Primary Care Provider ALLERGIES No Known Allergies REASON FOR VISIT annual visit, CBACK HEMATURIA was having a kidney stone MEDICATIONS Medication SIG (Take, Route, Frequency, Duration) [...] Atherosclerosis of abdominal aorta (I70.0) Active confirmed [id number] VITAL SIGNS BMI 27.83 kg/m2 04/09/2024 Blood pressure systolic 110 mm Hg 04/09/20 24 Blood pressure diastolic 80 mm Hg 024 Height 70 in 04/09/2024 Weight 194 lbs 04/09/2024 weight is down 6 pounds [facility] e 9 Encounters Encounter Location Date Provider Diagnosis Kody Servin MD [address] [place], [place] [phone] 04/09/2024 Kody Servin Pure hypercholestero lemia E78.00 ; Annual physical exam Z00.00 ; Atherosclerosis of abdominal aorta I70.0 and Depression screening Z13.31 ASSESSMENTS Encounter Date Diagnosis Assessment Notes Treatment Notes Treatment Clinical Notes 04/09/2024 Pure hypercholestero lemia (ICD-10 - E78.00) will get closer to 75 04/09/2024 Annual physical exam (ICD-10 - Z00.00) labs reviewed and discussed with patient 04/09/2024 Atherosclerosis of abdominal aorta (ICD-10 - I70.0) increase atorvastin to 40, patient verbalized understanding of change in dose of medication 04/09/2024 Depression screening (ICD-10 - Z13.31) negative screen PLAN OF TREATMENT Medication Medication Name Sig Start Date Stop [...] dose of medication Depression screening negative screen Future Test Test Name Order Date Liver Panel 07/10/2024 Lipid Panel 07/10/2024 Next Appt Details Follow Up: 1 Year, Reason: Provider Name:Kody lopez, 07/11/2024 07:30:00 AM, [address], [address], [place], [place], [phone], Provider Name:Kody García inesr, 04/04/2025 07:15:00 AM, [address], [address], [place], [place], [phone], Provider Name:Kody García inesr, 04/11/2025 02:30:00 PM, [address], [address], [place], [place], [phone], Progress Notes * Examination Category Sub-Category Detail Notes General Examination GENERAL APPEARANCE: well dev eloped, well nourished, in no acute distress HEAD: normocephalic, atrau matic EYES: pupils equal, round, reactive to light and accommodation, sclera non- icteric EARS: normal THROAT: clear NECK/THYROID: neck supple, [...] RECTAL EXAM: declined ORAL CAVITY: mucosa moist History and Physical Notes * HPI (History of Present Illness) Category Sub-Category Detail Notes Depression Screening PHQ-9 Little inte rest or [...] patient have a vision impairmen t?: Yes ?If yes, what is the vision impairment?: Glasses Does the patient have a cognition impair ment?: No
--- OUTSIDE RECORDS SUMMARY | 2024-05-23 13:51 | XMS_ITS ---
Author Organization Kody Servin MD Address [address] [place], [place] [phone] Care Team Providers Care As400 Administrator Name Role Phone GarethNuryn Primary Care Provider RESULTS Component Value Reference Range Notes Complete Blood Count Auto Di ff Reviewed date:04/02/2024 12:19:26 PM Interpretation: Performing Lab:[facility], [address] [place] [phone] Notes/Report: White Blood Count 11.5 4.8-10.8 X10*3/uL [...] NRBC Abs Auto 0.000 0.0-0.012 X10*3/uL Comprehensive [place]. Panel Fa st Reviewed date:04/02/2024 12:39:33 PM Interpretation: Performing Lab:[facility], [address] [place] [phone] Notes/Report: Sodium 145 135-145 mmol/L Potassium 4.2 3.3-5.1 mmol/L Chloride 105 96-108 mmol/L Carbon Dioxide 27 22-29 mmol/L Anion Gap 17 12-20 Blood Urea Nitrogen 19 9-16 mg/dL Creatinine 0.91 0.5-1.4 mg/dL Estimated Glomerular Filt Rate > 60 NOTE: For -Mauritan[place] individuals, multiply the result by 1.210. Chronic [...] Reviewed date:04/02/2024 12:24:41 PM Interpretation: Performing Lab:[facility], [address] [place] [phone] Notes/Report: Triglycerides 157 <150 mg/dL Desirable Triglyceride: [...] 08:23:06 AM Interpretation:NATALIA 04/09 PSA Performing Lab:[facility], [address] [place] [phone] Notes/Report: PSA,Total (Free>4and<10) 1.82 0.00-4.00 ng/mL A [...] Reviewed date:04/02/2024 12:42:14 PM Interpretation: Performing Lab:[facility], [address] [facility], [place] [phone] Notes/Report: Urine, Clean Catch Color Urine Yellow Appearance Urine Clear PH 6.5 5.0-9.0 Glucose Urine UA Negative Negative mg/dL Urine Blood Negative Negative Specific [place] - Urine 1.020 1.005-1.025 Urine Protein Negative [...] Location Date Provider Diagnosis Kody Servin MD [address] [place] [phone] 04/02/2024 Kody Servin Blood tests for rout ine general physical examination Z00.00 ; Pure hypercholesterolemia E78.00 and Leukocytosis, unspecified type D72.829 ASSESSMENTS Encounter Date Diagnosis Assessment Notes Treatment Notes Treatment Clinical Notes 04/02/[address] ine general physical examination (ICD-10 - Z00.00) 04/02/2024 Pure hypercholestero lemia (ICD-10 - E78.00) 04/02/2024 Leukocytosis, unspec ified type (ICD-10 - D72.829) PLAN OF TREATMENT Next Appt Details Provider Name:Kody lopez, 07/11/2024 07:30:00 AM, [address] [place] [address], [address], [phone], Provider Name:Kody lopez, 04/04/2025 07:15:00 AM, [address] [place] [address], [phone], Provider Name:Kody lopez, 04/11/2025 02:30:00 PM, [address] [place] [address], [phone],
--- NOTE | 2024-05-23 14:02 | MHC.OFFVIS ---
Intake Visit Reasons: ER follow up/Kidney stones Intake Note: New Patient presents for initial visit for ER follow up kidney stones Urology Medications: none Blood Thinner: none Insurance Service Representative Required: No Accompanied by: Self / Same As Patient Allergies No Known Allergies [No Known Allergies*] Allergy (Unverified 05/23/24 14:42) Medication List - Last Reconciled 05/23/24 by MIGUEL Kirkland erythromycin 0.5 inches ophthalmic (eye) QID 7 days naproxen (Naprosyn) 500 mg PO BID tamsulosin (Flomax) 0.4 mg PO BEDTIME HPI Comments Details: Ambrose Pizarro is a 58-year-old male patient of Dr. Servin. He presents to the office today as a new patient for nephrolithiasis. In discussion with the patient today he reports having seeked emergency room care approximately 3 months ago for right-sided flank pain he had been experiencing at which time a CT of the abdomen was ordered and performed. These results reviewed with the patient today. CT 02/25 the kidneys are normal in size, shape, and attenuation. There is a nonobstructing 4 mm calculus upper pole right kidney. There is mild right hydronephrosis and hydroureter extending into the pelvis to the level of a 2.5 mm calculus in the right UVJ. The bladder is unremarkable. Patient reports shortly after ER visit pain had subsided. When asked he currently denies any bothersome urinary issues or concerns. He denies any previous history of nephrolithiasis and or surgical intervention for nephrolithiasis. We discussed at length potential causes of nephrolithiasis as well as further workup. He denies urinary urgency, urinary frequency, incontinence, nocturia, hematuria, dysuria, foul smelling urine, changes to urinary stream, flank pain, fever, and or chills. He is happy with his current voiding parameters. In office urinalysis results with the patient today. He otherwise offers no other issues or concerns at this time. 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 Review of Systems Const All systems reviewed & are unremarkable except as noted in HPI and below Physical Exam Const General: cooperative, healthy appearing, comfortable, no acute distress, well developed, alert and awake Orientation/consciousness: patient oriented x3 Limitations: no limitations HEENT Head: Yes normal to inspection, Yes normocephalic and Yes atraumatic Ears: hearing grossly normal bilaterally Eyes General: appearance normal, both eyes and all related structures Neck Neck: Yes normal visual inspection and Yes trachea midline Chest Chest palpation & inspection: normal inspection of the chest Resp Effort & Inspection: normal respiratory effort and able to speak in complete sentences Cardio Rate: regular rate GI Inspection: Yes normal to inspection General: Yes no CVA tenderness Back/Spine/Pelvis Back: no CVA tenderness Skin General skin exam: no rashes or lesions noted Neuro General: patient oriented x3 Extrem General: Yes normal to inspection Psych Appearance: grossly normal and well kempt Mental Status: mental status grossly normal Speech and movement: Normal speech and movement present and Clear speech present Affect: normal affect Attitude: cooperative Thought process: Normal thought process present Thought content: Normal thought content present Insight: Fair insight present (Psych) Judgement: Fair judgement present (Psych) Results AMB Urinalysis, Automated UA Leukoctes 0 Rudy/uL Last Edit by [facility] on 05/23/24 15:07 UA Nitrite Last Edit by [facility] on 05/23/24 15:07 UA Urobilinogen 0.2 mg/dL Last Edit by [facility] on 05/23/24 15:07 UA Protein 15 mg/dL Last Edit by [facility] on 05/23/24 15:07 UA pH 6.0 Last Edit by [facility] on 05/23/24 15:07 UA Blood 0 Johnathan/uL Last Edit by [facility] on 05/23/24 15:07 UA Specific Gore 1.025 Last Edit by [facility] on 05/23/24 15:07 UA Ketone Last Edit by [facility] on 05/23/24 15:07 UA Bilirubin 0 mg/dL Last Edit by [facility] on 05/23/24 15:07 UA Glucose 0 mg/dL Last Edit by [facility] on 05/23/24 15:07 Results Reviewed Results Reviewed: Laboratory Last Values Urine pH (Auto) 6.0 05/23/24 15:02 Specific Gore (Auto) 1.025 05/23/24 15:02 Urine Protein (Auto) 15 mg/dL 05/23/24 15:02 Glucose (UA)(Auto) 0 mg/dL 05/23/24 15:02 Urine Blood (Auto) 0 Johnathan/uL 05/23/24 15:02 Urine Bilirubin (Auto) 0 mg/dL 05/23/24 15:02 Urine Urobilinogen (Auto) 0.2 mg/dL 05/23/24 15:02 Leukocyte Esterase (Auto) 0 Rudy/uL 05/23/24 15:02 Date of Service: 02/21/24 EXAMINATION: CT ABDOMEN AND PELVIS WITHOUT CONTRAST FINDINGS: LUNG BASES: There is minimal scarring or subsegmental atelectasis at the lung bases. LIVER, GALLBLADDER, AND BILIARY TREE: The liver is normal in size, shape, and attenuation. No focal hepatic lesion or biliary ductal dilatation is present. The gallbladder is unremarkable with no evidence of radiopaque gallstones, gallbladder wall thickening, or obvious pericholecystic inflammatory changes. PANCREAS: Unremarkable. SPLEEN: Unremarkable. ADRENAL GLANDS: Unremarkable. KIDNEYS AND URETERS: The kidneys are normal in size, shape, and attenuation. There is a nonobstructing 4 mm calculus upper pole right kidney. There is mild right hydronephrosis and hydroureter extending into the pelvis to the level of a 2.5 mm calculus right ureterovesicular junction. BLADDER: Unremarkable. GASTROINTESTINAL TRACT: There is a single cecal diverticulum. The appendix is visualized and is within normal limits. ABDOMINAL WALL: No significant hernia is appreciated. LYMPH NODES: Normal. VASCULAR: There is atherosclerotic plaque of the abdominal aorta and proximal branches. PELVIC VISCERA: There is prostate gland hypertrophy. OSSEOUS STRUCTURES: There is diffuse moderate thoracolumbar degenerative changes. IMPRESSION: Mild right hydronephrosis and hydroureter extending into the pelvis to the level of a 2.5 mm calculus in the right ureterovesicular junction. Small nonobstructing right upper pole renal calculus. Assessment & Plan Assessment & Plan (1) Nephrolithiasis: Code(s): N20.0 - Calculus of kidney Category: Medical Plan In office urinalysis results reviewed with the patient today; as noted above. Recent CT results reviewed with the patient today; as noted above. Patient currently denies any bothersome urinary issues or concerns. He reports be happy with current voiding parameters. We discussed at length potential causes of nephrolithiasis as well as further workup. We discussed importance of adequate hydration relation to nephrolithiasis. Will obtain renal ultrasound. Follow-up in 1-3 months with imaging to be completed prior; or sooner with any issues, concerns, and or questions. Orders: Orders US renal BI 05/23/24 N20.0 - Calculus of kidney AMB Urinalysis Automated 05/23/24 Z13.9 - Encounter for screening, unspecified Medications: Discontinued erythromycin place in right eye Discontinued Reason: Patient no longer taking 0.5 inches ophthalmic (eye) QID 7 days 3.5 grams 0RF naproxen (Naprosyn) Discontinued Reason: Patient no longer taking 500 mg PO BID 20 tabs 0RF tamsulosin (Flomax) Discontinued Reason: Patient no longer taking 0.4 mg PO BEDTIME 30 caps 0RF Patient Instructions: The patient had an opportunity to ask questions regarding the treatment plan. All questions were answered. Physical exam, labs, and imaging were discussed and reviewed in detail. As well as risks, benefits, and discussion of treatment choices. No major barriers to understanding were identified. The patient expressed understanding and agreement with the above treatment plan. The patient was made aware they should contact our office by phone for worsening of their current condition, the appearance of new symptoms, or with any questions or concerns. Compliance is encouraged with any medications and follow up testing that is ordered. It is a privilege to be allowed the opportunity to participate in? your urological care.? Again, if you have any questions or concerns If you have any questions or concerns please do not hesitate to contact me. The office is [phone]. This note is constructed using voice recognition software. While every effort has been made to ensure accuracy grinder outside diameter errors may have been included. Yours sincerely, MIGEUL Kirkland Coding Level of Care Code New Pt Level 3 (28872) Diagnoses Nephrolithiasis N20.0
== END 2024-05-23 14:34 | disposition home or self-care (01) ==
PROVIDERS: PCP Internal Medicine; Visit Provider Nurse Practitioner Family
DX: N20.0 Calculus of kidney (principal)
CPT/HCPCS: 99203

== ENCOUNTER → 2024-05-23 13:48 | Outpatient (BNVA) | payer BC, SELFPAY | PROVIDERS: PCP Internal Medicine; Visit Provider Nurse Practitioner Family | DX: N20.0 Calculus of kidney (principal) | CPT/HCPCS: 81003 ==

== ENCOUNTER 2024-08-26 14:29 | Outpatient (REF) | payer BC, SELFPAY ==
--- NOTE | ~2024-08-26 | US_ITS ---
CLINICAL HISTORY: N20.0 - Calculus of kidney US Renal Comparison: None Findings: Right kidney normal size and echotexture, 11.4 cm length. Left kidney normal size and echotexture, 11.6 cm length. Small lower pole cyst measuring up to 1.1 cm greatest diameter No renal calculi are noted. No collecting system dilatation of either kidney. Normal color Doppler. IMPRESSION: 1. No renal calculi noted. Small cyst lower pole left kidney. This document has been electronically signed by: Andi Alcazar MD on 08/27/2024 13:36:07
== END 2024-08-26 14:30 | disposition home or self-care (01) ==
LOC: HO.HMGCX 14:29
PROVIDERS: PCP Internal Medicine; Visit Provider Nurse Practitioner Family
DX: N20.0 Calculus of kidney (principal)
CPT/HCPCS: 76775

== ENCOUNTER → 2024-08-26 14:36 | Outpatient (BNV) | payer BC, SELFPAY | PROVIDERS: PCP Internal Medicine; Visit Provider Radiology Diagnostic Radiology | DX: N20.0 Calculus of kidney (principal) | CPT/HCPCS: 76775 ==

== ENCOUNTER 2024-09-11 16:05 | Outpatient (AMB) | payer BC, SELFPAY ==
--- OUTSIDE RECORDS SUMMARY | 2024-09-10 15:07 | XMS_ITS ---
Author Organization Kody Servin MD Address [address] [place], [place] [phone] Care Team Providers Care Yarn Dyer Name Role Phone Gareth Kody Primary Care [...] Problem Status W/U Status Risk Notes Problem [id number] Atherosclerosis of abdominal aorta (I70.0) Active confirmed Vital Signs Blood pressure systolic 110 mm Hg 04/09/20 24 Blood pressure diastolic 80 mm Hg 024 Height 70 in 04/09/2024 Weight 194 lbs 04/09/2024 BMI 27.83 kg/m2 04/09/2024 weight is down 6 pounds new [facility] 02-06-24 Encounters Encounter Location Date Provider Diagnosis Kody Servin MD [address] [place], [place] [phone] 04/09/2024 Kody Servin Pure hypercholestero lemia E78.00 [...] dose of medication Depression screening negative screen Pending Test Test Name Order Date Liver Panel 04/09/2024 Lipid Panel 04/09/2024 Next Appt Details Follow Up: 1 Year, Reason: Provider Name:Kody lopez, 04/04/2025 07:15:00 AM, [address], [address], [place], [place], [phone], Provider Name:Kody lopez, 04/11/2025 02:30:00 PM, [address], [address], [place], [phone], Progress Notes * Ambrose MORIN PDOB:[birth year] (58 yo M)Acc No.[id number]:04/09/2024 Progress Notes Patient:?Ambrose Morin Provider:?Kody Servin MD :1965???Age:58 Y???Sex:Male Juan e:04/09/2024 Address:[address] [place] [address] [place], [id number] Subjective: * Chief Complaints: * ???Annual visitCBACK HEMATUR [place] was having a kidney stone * HPI: ???Depression Screening:?PHQ-9?Little interest or pleasure in doing things?Not at all,?Feeling down, depressed, or hopeless?Not at all,?Trouble falling or staying asleep, or sleeping too much?Not at all,?Feeling tired or having little energy?Not at all,?Poor appetite or overeating?Not at all,?Feeling bad about yourself or that you are a failure, or have let yourself or your family down?Not at all,?Trouble concentrating on things, such as reading the newspaper or watching television?Not at all,?Moving or speaking so slowly that other people could have noticed; or the opposite, being so fidgety or restless that you have been moving around a lot more than usual?Not at all,?Thoughts that you would be better off or of hurting yourself in some way?Not at all,?Total Score?0.?Interpretation and Intervention?Depression Screening Findings?Negative,?Follow-Up for Depression?: review of PHQ-9 found negative result, no follow-up needed.?Communication Needs:?Communication Needs?Does the patient have a hearing impairment?No,?Does the patient have a vision impairment??Yes,?If yes, what is the vision impairment??Glasses,?Does the patient have a cognition impairment??No.?SDOH Questions:?SDOH Questions?In the past year have you been worried about losing housing??No,?In the past year have you or any family members you live with been unable to get any of the following when it was really needed? Check all that apply:?None.?Symptom(s):? patient is a 58 yo male here for annual visit with review of recent labs and follow up of chronic issues. had kidney stone and had ct scan. * ROS:?General/Constitutional:?Change in appetite?denies.?Chills?denies.?Fever?denies.?Ophthalmologic:?Blurred vision?denies.?Discharge?denies.?Pain?denies.?ENT:?Decreased hearing?denies.?Sore throat?denies.?Swollen glands?denies.?Endocrine:?Cold intolerance?denies.?Excessive thirst?denies.?Heat intolerance?denies.?Weight loss?denies.?Respiratory:?Cough?denies.?Shortness of breath at rest?denies.?Shortness of breath with exertion?denies.?Wheezing?denies.?Cardiovascular:?Chest pain at rest?denies.?Chest pain with exertion?denies.?Irregular heartbeat?denies.?Shortness of breath?denies.?Gastrointestinal:?Abdominal pain?denies.?Change in bowel habits?denies.?Diarrhea?denies.?Nausea?denies.?Rectal bleeding?denies.?Vomiting?denies .?Genitourinary:?Blood in urine?denies.?Difficulty urinating?denies.?Frequent urination?denies.?Musculoskeletal:?Painful joints?denies.?Weakness?denies.?Skin:?Dry skin?denies.?Itching?denies.?Denies?Mole(s),? changes in moles, new moles or any lesions of concern.?Denies?Photosensitivity.?Rash?denies.?Neurologic:?Dizziness?denies.?Fainting?denies.?Headache?denies.? * Medical History:? * Surgical History:? * Hospitalization/Major Diagno stic Procedure:? * Family History:?Father: dece ased 56 yrs, coronary artery disease.?Mother: 84 yrs.?4 brother(s) , 3 sister(s) . .? had coronary disease, Denies mental health/substance abuse family history Mother, Denies mental health/substance abuse family history, Denies mental health/substance abuse family history. * Social History:?Tobacco Use:?Tobacco Use/Smoking?Patient is a?nonsmoker,?Additional Findings: Tobacco Non-User?Current non-smoker, currently using no form of tobacco.?Drugs/Alcohol:?Alcohol Screen?Did you have a drink containing alcohol in the past year??No,?Points?0,?Interpretation?Negative.?Miscellaneous:?no Caffeine. no Children. no Community involvements. Exercise: yes, 5 days a week push ups sit ups rowing machine. Home smoke detector use: yes. Housing: owning. Living with: significant other. Marital status: single. Occupation: works full-time. Pets: none. Travel outside of the [place]: yes, [place]. * Medications:?TakingAtorvasta tin Calcium 20 MG Tablet TAKE 1 TABLET [...] reviewed and reconciled with the patient * Allergies:?N.K.D.A.yes[Aller gies Verified] Objective: * Vitals:?Ht: 70, Wt:194, BMI: 27.83, BP:110/80 weight is down 6 pounds since 02-06-24. * ???Past Orders: ???Lab:Lipid Panel (Order Da te - 04/02/2024) (Collection Date - 04/02/2024) ? Value Reference Range ?Triglycerides 157 H <150 - mg/dL ?Cholesterol 181 <200 - m g/dL ?LDL Cholesterol Calculated 106 H <100 - mg/dL ?HDL Cholesterol 44 >40 - mg/dL ???Lab:UA ClnCatch+Micro w/r flx Cult (Order Date - 04/02/2024) (Collection Date - 04/02/2024) ? Value Reference Range ?Color Urine Yellow - ?Appearance Urine Clear - ?PH 6.5 5.0-9.0 - ?Glucose Urine UA Negative Neg ative - mg/dL ?Urine Blood Negative Negative - ?Specific Howe - Urine 1.020 1.005-1.025 - ?Urine Protein Negative Neg-Tr tulio - mg/dL ?Urine Ketones Negative Negati ve - mg/dL ?Nitrite Urine Negative Negati ve - ?Leukocyte Esterase Urine Negative Negative - ?RBC Urine 0-2 0-2 - /HPF ?WBC Urine 0-5 0-5 - /HPF ?Squamous Epithelial Cell Urine 0-2 0-2 - /HPF ?Bacteria Urine None Seen None Seen - ?Hyaline Casts Urine 0-2 0-2 - /LPF ???Lab:Complete Blood Count Auto Diff (Order Date - 04/02/2024) (Collection Date - 04/02/2024) ? Value Reference Range ?White Blood Count 11.5 H 4. 8-10.8 - X10*3/uL ?Red Blood Count 5.30 4.60 -5.80 - X10*6/uL ?Hemoglobin 15.9 14.0-18.0 - g/dl ?Hematocrit 47.0 42.0-52.0 - % ?Mean Corpuscular Volume 88.7 80.0-98.0 - fL ?Mean Corpuscular Hemoglobin 30.0 27.0-33.0 - pg ?Mean Corpuscular HGB Conc 33.8 31.0-36.0 - g/dl ?Red Cell Distribution Width 13.1 11.0-16.0 - % ?Platelet Count 334 160-4 00 - X10*3/uL ?Mean Platelet Volume 10.3 9.4-12.4 - fL ?Neutrophils Percent Auto 67.6 45-73 - % ?Imm Gran Pct Auto 0.6 H 0. 0-0.4 - % ?Lymphocytes Percent Auto 19.3 L 20-40 - % ?Monocytes Percent Auto 8.7 2-11 - % ?Eosinophils Percent Auto 3.2 0-4 - % ?Basophils Percent Auto 0.6 0-2 - % ?NRBC Pct Auto 0.0 0.0-0. 2 - /100WBC ?Neutrophils Absolute Auto 7.8 2.0-8.3 - x10*3/uL ?Imm Gran Abs Auto 0.07 H 0. 00-0.03 - X10*3/uL ?Lymphocytes Absolute Auto 2.2 1.2-4.9 - X10*3/uL ?Monocytes Absolute Auto 1.0 0.1-1.2 - X10*3/uL ?Eosinophils Absolute Auto 0.4 0.0-0.4 - X10*3/uL ?Basophils Absolute Auto 0.1 0.0-0.2 - X10*3/uL ?NRBC Abs Auto 0.000 0.0-0. 012 - X10*3/uL ???Lab:Comprehensive Jackson. P simona Fast (Order Date - 04/02/2024) (Collection Date - 04/02/2024) ? Value Reference Range ?Sodium 145 135-145 - mmo l/L ?Bilirubin Total 0.6 0.0- 1.0 - mg/dL ?Aspartate Amino Transferase 23 5-37 - U/L ?Alanine Aminotransferase 23 0-40 - U/L ?Total Protein 7.7 6.5-8. 0 - g/dL ?Albumin Level 4.4 3.5-5. 0 - g/dL ?Alkaline Phosphatase 65 39-117 - U/L ?Potassium 4.2 3.3-5.1 - mmol/L ?Chloride 105 96-108 - mm ol/L ?Carbon Dioxide 27 22-29 - mmol/L ?Anion Gap 17 12-20 - ?Blood Urea Nitrogen 19 H 9-16 - mg/dL ?Creatinine 0.91 0.5-1.4 - mg/dL ?Estimated Glomerular Filt Rate > 60 - ?Glucose Fasting 85 60-9 9 - mg/dL ?Calcium 9.8 8.4-10.2 - m g/dL * Examination: ???General Examination: ?GENERAL APPEARANCE:?well developed, well nourished, in no acute distress.?HEAD:?normocephalic, atraumatic.?EYES:?pupils equal, round, reactive to light and accommodation, sclera non-icteric.?EARS:?normal.?ORAL CAVITY:?mucosa moist.?THROAT:?clear.?NECK/THYROID:?neck supple, full range of motion, no cervical lymphadenopathy, no bruits.?SKIN:?warm and dry, no suspicious lesions.?HEART:?regular rate and rhythm, S1, S2 normal, no murmurs.?LUNGS:?clear to auscultation bilaterally.?ABDOMEN:?soft, nontender, nondistended, bowel sounds present, normal, no organomegaly , no masses palpable.?RECTAL EXAM:?declined.?MALE GENITOURINARY:?declined.?EXTREMITIES:?no clubbing, cyanosis, or edema.?NEUROLOGIC:?nonfocal, motor strength normal upper and lower extremities, sensory exam intact.? Assessment: * Assessment: 1.?Annual physical exam - Z0 0.00 (Primary)?2.?Pure hypercholesterolemia - E78.00?3.?Atherosclerosis of abdominal aorta - I70.0?4.?Depression screening - Z13.31? Plan: * Treatment: 2.?Pure hypercholesterolemia ? Notes: will get closer to 75?? 3.?Atherosclerosis of abdomi nal aorta? Continue Atorvastatin Calcium Tablet, 40 MG, TAKE 1 TABLET BY MOUTH EVERY DAY.?LAB: Liver Panel (Ordered for 07/10/2024) ?LAB: Lipid Panel (Ordered for 07/10/2024) Notes: increase atorvastin to 40, patient verbalized understanding of change in dose of medication?? 4.?Depression screening? Notes: negative screen?? * Immunizations:? Fluarix Quadrivalent - 150 (Not administered - Refused: Patient decision) * Procedure Codes:? * Preventive Medicine:? ??Counseling:?Care goal follow-up plan:?Counseling for abnormal BMI provided?Yes,?Above Normal BMI Follow-up?Giving encouragement to exercise.? ??Immunizations:?Influenza?Have you had a flu shot since the most recent February 03??No patient refused at visit today.? * Follow Up:?1 Year * * Sign off status: Completed true * Provider:?Kody Servin MD Date:?06/09/2023 Generated for Priya potts/Ken/Jaiden on:?09/10/2024 03:07 PM EDT History and Physical Notes * HPI [...]
--- OUTSIDE RECORDS SUMMARY | 2024-09-10 15:07 | XMS_ITS ---
Author Organization Kody Servin MD Address [address] [place] [phone] Care Team Providers Care Superintendent Plant Protection Name Role Phone GarethKody Primary Care Provider [phone] REASON FOR VISIT fasting liver lipids Encounters Encounter Location Date Provider Diagnosis Kody Servin MD [address] [place] [id number] 07/11/2024 Kody Servin Pure hypercholestero lemia E78.00 and Atherosclerosis of abdominal aorta I70.0 Assessments Encounter Date Diagnosis (ICD Code) Assessment Notes Treatment Notes Treatment Clinical Notes Section Notes 07/11/2024 Pure hypercholesterolemia (ICD-10 - E78.00) 07/11/2024 Atherosclerosis of abdominal aorta (ICD-10 - I70.0) Plan Of Treatment Pending Test Test Name Order Date Liver Panel 07/11/2024 Lipid Panel 07/11/2024 Next Appt Details Provider Name:Kody lopez, 04/04/2025 07:15:00 AM, [address], [address], [place], [phone], Provider Name:Kody García ier, 04/11/2025 02:30:00 PM, [address], [address], [place], [phone], Progress Notes * Ambrose MORIN PDOB:[birth year] (59 yo M)Acc No.[id number]:07/11/2024 Progress Note Patient:?Ambrose MORIN Provider:?Kody Servin MD :1965???Age:59 Y???Sex:Male Juan e:07/11/2024 Address:[address] [place] [address] [id number] Subjective: * Chief Complaints: * ???1. Fasting liver lipids. * Medical History:? Objective: * Vitals:? Assessment: * Assessment: 1.?Pure hypercholesterolemia - E78.00???2.?Atherosclerosis of abdominal aorta - I70.0??? Plan: * Treatment: * * The named appointment provid er may or may not be the originator of this progress note, and it is not deemed complete until electronically signed by the appointment provider. Sign off status: Pending * Provider:?Kody Servin MD Date:?0 07/11/2024 Generated for Priya potts/Ken/Adonayitting on:?09/10/2024 03:06 PM EDT
--- OUTSIDE RECORDS SUMMARY | 2024-09-10 15:07 | XMS_ITS | Data Portability ---
Author Organization STEPHANIE Leonardo s, [address] Address [address] [place] [address] Care Team Providers Care Crutch Maker Name Role Phone DIANAPETER NAVARRETE Primary Care Provider Assessment No assessment recorded. Plan of Treatment Reminders Order Date Submit Date Provider Last Modified By Organization Details Last Modified Time Details Appointments None recorded. Lab None recorded. Referral None recorded. Procedures None recorded. Surgeries None recorded. Imaging None recorded. Medication Orders doxycycline hyclate 100 mg capsule 2022 023 [id number], [address] [place], [address], 10:24:18 mupirocin 2 % topical ointment 2022 023 [id number], [address] [place], [address], 10:24:18 Patient TargetsNo targets recorded. Patient Instructions Encounter Date Encounter Id Patient Instructions Last Modified By Organization Details Last Modified Time 01/28/2023 [id number] folliculitis: care instructions [email or web address] Not available 01/28/2023 10:24:15 Take the antibiotic [...] chills, abscess formation or other worsening symptoms. [email or web address] Not available 01/28/2023 10:25:59 Reason for Referral None Reported. Problems Name Problem SNOMED Code Status Onset Date Resolution Date Notes Provider Name and Address Organization Details Recorded Time Hypercholestero sergeia 37065851 Active 2022 STEPHANIE Robles [facility] 10:04:43 [...] 3 16 /min 177.8 cm 27.3 kg/m2 40125.5 5 g 97.5 [degF] 97 % 97 % 83 /min 115 mm[Hg] 82 mm[Hg] SHANNAN Huston [facility] 3 10:08:24 Social History Question Answer Notes LastModified by Organizat ion Details LastModified Time Tobacco Smoking Status Never Smoker STEPHANIE Robles - [facility] 01/28/2023 10:06:06 What Is Your Level Of Alcohol Consumption? Occasional [email or web address] Information not available 01/28/2023 Which Illicit Or Recreational Drugs Have You Used? Marijuana [email or web address] Information not available 01/28/2023 Do You Use Any Illicit Or Recreational Drugs? Yes [email or web address] Information not available 01/28/2023 Have You Recently Traveled Abroad? Yes [place] [email or web address] Information not available 01/28/2023 Do You Or Have You Ever Used Any Other Forms Of Tobacco Or Nicotine? No [email or web address] Information not available 01/28/2023 Sex: Unknown Functional Status None recorded. Mental Status None recorded. Family History Relationship Description Onset Age of this Age Resolved Age Notes LastModified by Organization Details LastModified Time Unspecified Relation Heart disease [email or web address] Not available 2022 10:05:04 Unspecified Relation Parkinson's disease [email or web address] Not available 2022 10:05:11 Unspecified Relation Carcinoma of prostate [email or web address] Not available 2022 10:05:24 Medical History No medical history recorded. Past Encounters Encounter ID Performer Location Encounter Start Date Encounter Closed Date Diagnosis/Indication Diagnosis SNOMED-CT Code Diagnosis ICD10 Code Diagnosis Note [id number] [address] [place] [address] 11/30/2019 15:57:43 11/30/2019 17:43:45 [id number] [address] [place] [address] 11/26/2016 09:16:14 11/26/2016 09:45:24 [id number] [address] [place] [address] 10/30/2016 09:48:23 10/30/2016 10:24:14 [id number] [place] [address] [place] [address] 01/28/2023 09:30:20 01/28/2023 10:29:39 Acute folliculitis [id number] L73.9 Health Concerns Section Related Observation LastModified by Organization Detai ls LastModified Time None Recorded Concern Status LastModified by Organization Details LastModified Time None Recorded Advance Directives Directive None Recorded Payers Encounter Date Sequence Insurance Name Policy Number Policy [place] Covered Member ID [place] Member ID Guarantor Name 10/30/2016 1 [place] [facility] [place] [place] [id number] Ambrose P Rovero [id number] Ambrose P Rovero 11/26/2016 1 [place] [facility] [place] [place] [id number] Ambrose P Rovero [id number] Ambrose P Rovero 11/30/2019 1 [place] [facility] [place] [place] [id number] Ambrose P Rovero [id number] Ambrose P Rovero 01/28/2023 1 [place] [facility] [place] [place] [id number] Ambrose P Rovero [id number] Ambrose P Rovero Notes Date Note [...] or neck stiffness. Li Carpenter MD [address] [place], [address], [place] - [facility] 01/28/2023 10:32:59
--- OUTSIDE RECORDS SUMMARY | 2024-09-10 15:08 | XMS_ITS ---
Author Organization Kody Servin MD Address [address] [place] [phone] Care Team Providers Care Recoil Spring Winder Name Role Phone Kody Servin Primary Care Provider REASON FOR VISIT ins referral Encounters Encounter Location Date Provider Diagnosis Kody Servin MD [address] [place] [phone] 08/02/2024 Kody Servin Plan Of Treatment Next Appt Details Provider Name:Kody García ier, 04/04/2025 07:15:00 AM, [address] [place] [address], [address] [place] [address], [phone], Provider Name:Kody lopez, 04/11/2025 02:30:00 PM, [address] [place] [address], [address] [place] [address], [phone], Progress Notes * Ambrose MORIN PDOB:[birth year] (59 yo M)Acc No.[id number]:08/02/2024 Patient:Ambrose BAINS :1965???Age:59 Y???Sex:Male Address:[address] [place] [address] [place], [address] * true * Date:? Generated for Priya potts/Ken/eTransmitting on:?09/10/2024 03:07 PM EDT
--- NOTE | 2024-09-11 16:06 | A.OFFVIS_ITS ---
Intake Visit Reasons: US(set) Intake Note: Patient presents for a 3 month follow up/US Urology Medications: none Blood Thinner: none Varnish Thinner Required: No Accompanied by: Self / Same As Patient Allergies No Known Allergies [No Known Allergies*] Allergy (Verified 09/11/24 16:50) Medication List - Last Reconciled 09/11/24 by MIGUEL Kirkland No Known Home Meds HPI Comments Details: Ambrose Pizarro is a 59-year-old male patient of Dr. Servin. He is being followed up on today via video telehealth. Of note, patient was seen approximately 4 months ago as a new patient for nephrolithiasis at which time a renal ultrasound was ordered for further assessment evaluation. These results were reviewed with the patient today 08/27 bilateral kidneys with no calculi. Left kidney with small lower pole cysts measuring 1.1 cm in greatest diameter. He currently denies any bothersome urinary issues or concerns. He denies urinary urgency, urinary frequency, incontinence, nocturia, hematuria, dysuria, foul smelling urine, changes to urinary stream, flank pain, fever, and or chills. He is happy with his current voiding parameters. We discussed further metabolic workup workup to include 24 hour urine collection and labs. He otherwise offers no other issues or concerns at this time. 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 Review of Systems Const All systems reviewed & are unremarkable except as noted in HPI and below Physical Exam Const General: cooperative, healthy appearing, comfortable, no acute distress, well developed, alert and awake Orientation/consciousness: patient oriented x3 Resp Effort & Inspection: normal respiratory effort and able to speak in complete sentences Neuro General: patient oriented x3 Psych Appearance: grossly normal and well kempt Mental Status: mental status grossly normal Speech and movement: Normal speech and movement present and Clear speech present Affect: normal affect Attitude: cooperative Thought process: Normal thought process present Thought content: Normal thought content present Insight: Fair insight present (Psych) Judgement: Fair judgement present (Psych) Telehealth Telehealth Telehealth Platform: We Cluster Location of provider rendering services: practice address Location of patient: address on file Patient Identification confirmed using: Name, : Yes Telehealth method: video Patient verbally consented to treatment: Yes Patient verbally consented to billing insurance company: Yes Patient informed of any privacy concerns related to visit: Yes Minutes spent on Phone/Video with Pt.: 15 Results Reviewed Results Reviewed: Date of Service: 08/26/24 Procedure(s): US renal BI Findings: Right kidney normal size and echotexture, 11.4 cm length. Left kidney normal size and echotexture, 11.6 cm length. Small lower pole cyst measuring up to 1.1 cm greatest diameter No renal calculi are noted. No collecting system dilatation of either kidney. Normal color Doppler. IMPRESSION: 1. No renal calculi noted. Small cyst lower pole left kidney. Assessment & Plan Assessment & Plan (1) Nephrolithiasis: Code(s): N20.0 - Calculus of kidney Category: Medical Plan Recent renal imaging results reviewed with the patient today; as noted above. We discussed obtaining metabolic workup for further assessment evaluation however patient declines at this time. Discussed, educated, and stressed the importance of adequate hydration relation to nephrolithiasis as well as overall health and well-being. Patient currently denies any bothersome urinary issues or concerns. We discussed adding 1 oz of lemon juice to water daily. He reports be happy with current voiding parameters. Will obtain renal ultrasound in 6 months for surveillance monitoring. Follow-up in 6 months with renal imaging to be completed prior; or sooner with any issues, concerns, and or questions. Orders: Orders US renal BI 6 Months N20.0 - Calculus of kidney Patient Instructions: The patient had an opportunity to ask questions regarding the treatment plan. All questions were answered. Physical exam, labs, and imaging were discussed and reviewed in detail. As well as risks, benefits, and discussion of treatment choices. No major barriers to understanding were identified. The patient expressed understanding and agreement with the above treatment plan. The patient was made aware they should contact our office by phone for worsening of their current condition, the appearance of new symptoms, or with any questions or concerns. Compliance is encouraged with any medications and follow up testing that is ordered. It is a privilege to be allowed the opportunity to participate in? your urological care.? Again, if you have any questions or concerns If you have any questions or concerns please do not hesitate to contact me. The office is [phone]. This note is constructed using voice recognition software. While every effort has been made to ensure accuracy specialist physician errors may have been included. Yours sincerely, MIGUEL Kirkland Coding Level of Care Code Tele New Pt Level 3 (24272) Diagnoses Nephrolithiasis N20.0
--- OUTSIDE RECORDS SUMMARY | 2024-09-11 17:44 | XMS_ITS | Data Portability ---
Author Organization STEPHANIE Leonardo s, [address] Address [address] [place] [address] Care Team Providers Care Flight Test Data Acquisition Technician Name Role Phone DIANAPETER NAVARRETE Primary Care Provider Assessment No assessment recorded. Plan of Treatment Reminders Order Date Submit Date Provider Last Modified By Organization Details Last Modified Time Details Appointments None recorded. Lab None recorded. Referral None recorded. Procedures None recorded. Surgeries None recorded. Imaging None recorded. Medication Orders doxycycline hyclate 100 mg capsule 2022 023 [facility] #[id number], [address] [place], [address], 10:24:18 mupirocin 2 % topical ointment 2022 023 [facility] #7111, [address] [place], [address], 10:24:18 Patient TargetsNo targets recorded. Patient Instructions Encounter Date Encounter Id Patient Instructions Last Modified By Organization Details Last Modified Time 01/28/2023 [id number] folliculitis: care instructions [email or web address] Not available 01/28/2023 10:24:15 Take the antibiotic [...] chills, abscess formation or other worsening symptoms. [email or web address] Not available 01/28/2023 10:25:59 Reason for Referral None Reported. Problems Name Problem SNOMED Code Status Onset Date Resolution Date Notes Provider Name and Address Organization Details Recorded Time Hypercholestero sergeia 50846308 Active 2022 STEPHANIE Robles [facility] 3 10:04:43 [...] 3 16 /min 177.8 cm 27.3 kg/m2 37848.5 5 g 97.5 [degF] 97 % 97 % 83 /min 115 mm[Hg] 82 mm[Hg] SHANNAN Huston [facility] 3 10:08:24 Social History Question Answer Notes LastModified by Organizat ion Details LastModified Time Tobacco Smoking Status Never Smoker STEPHANIE Robles - [facility] 01/28/2023 10:06:06 What Is Your Level Of Alcohol Consumption? Occasional [email or web address] Information not available 01/28/2023 Which Illicit Or Recreational Drugs Have You Used? Marijuana [email or web address] Information not available 01/28/2023 Do You Use Any Illicit Or Recreational Drugs? Yes [email or web address] Information not available 01/28/2023 Have You Recently Traveled Abroad? Yes Antonieta [email or web address] Information not available 01/28/2023 Do You Or Have You Ever Used Any Other Forms Of Tobacco Or Nicotine? No Information not available 01/28/2023 Sex: Unknown Functional Status None recorded. Mental Status None recorded. Family History Relationship Description Onset Age of this Age Resolved Age Notes LastModified by Organization Details LastModified Time Unspecified Relation Heart disease [email or web address] Not available 2022 10:05:04 Unspecified Relation Parkinson's disease [email or web address] Not available 2022 10:05:11 Unspecified Relation Carcinoma of prostate [email or web address] Not available 2022 10:05:24 Medical History No medical history recorded. Past Encounters Encounter ID Performer Location Encounter Start Date Encounter Closed Date Diagnosis/Indication Diagnosis SNOMED-CT Code Diagnosis ICD10 Code Diagnosis Note [id number] [address] [place] [address] 11/30/2019 15:57:43 11/30/2019 17:43:45 [id number] [address] [place] [address] 11/26/2016 09:16:14 11/26/2016 09:45:24 [id number] [address] [place] [address] 10/30/2016 09:48:23 10/30/2016 10:24:14 [id number] [place] [address] [place] [address] 01/28/2023 09:30:20 01/28/2023 10:29:39 Acute folliculitis 649942331 L73.9 Health Concerns Section Related Observation LastModified by Organization Detai ls LastModified Time None Recorded Concern Status LastModified by Organization Details LastModified Time None Recorded Advance Directives Directive None Recorded Payers Encounter Date Sequence Insurance Name Policy Number Policy [place] Covered Member ID [place] Member ID Guarantor Name 10/30/2016 1 [place] [facility] [place] [place] [id number] Ambrose P Rovero [id number] Ambrose P Rovero 11/26/2016 1 [place] [facility] [place] [place] [id number] Ambrose P Rovero [id number] Ambrose P Rovero 11/30/2019 1 [place] [facility] [place] [place] [id number] Ambrose P Rovero [id number] Ambrose P Rovero 01/28/2023 1 [place] [facility] [place] [place] [id number] Ambrose P Rovero [id number] Ambrose P Rovero Notes Date Note [...] Li Carpenter MD [address] [place], [address], [place] - [facility] 01/28/2023 10:32:59
== END 2024-09-11 16:30 | disposition home or self-care (01) ==
PROVIDERS: PCP Internal Medicine; Visit Provider Nurse Practitioner Family
DX: N20.0 Calculus of kidney (principal)
CPT/HCPCS: 99203

== ENCOUNTER → 2024-09-11 16:05 | Outpatient (BNVA) | payer BC, SELFPAY | PROVIDERS: PCP Internal Medicine; Visit Provider Nurse Practitioner Family ==

== ENCOUNTER 2025-04-04 10:22 | Outpatient (REF) | payer BC, SELFPAY ==
--- OUTSIDE RECORDS SUMMARY | 2024-01-30 10:15 | XMS_ITS ---
Author Organization Kody Servin MD Address [address] [place], [place] [phone] Care Team Providers Care Core Filer Name Role Phone GarethKody Primary Care Provider [phone] Allergies No Known Allergies Reason For [...] Location Date Provider Diagnosis Kody Servin MD [address] [place] [address] Drive [address] [place] [phone] 01/30/2024 Kody Servin Acute abscess L02.91 Assessments [...] 01/30/2024 01/30/2024, acute ab scess , Blanco Arya Next Appt Details Follow Up: 1 Week, Reason: Provider Name:Kody García ier, 04/11/2025 02:30:00 PM, [address] [place] [address] Drive, Suite [facility] [place], [place], [place], [phone], Progress Notes * KAYLEIGHJuarez MAGANAald PDOB:[birth year] (58 yo M)Acc No.[id number]:01/30/2024 Progress Notes Patient: Ambrose Jordan Provider: Marsha Servin MD :1965 A ge:58 Y S ex:Male Date:01/30/2024 Address:[address] [place] [address] [id number] Subjective: * Chief Complaints: * L arge [...] Servin MD Date: 0 01/30/2024 Generated for Cirai katlyn/Ken/eTransmitting on: 1 11:46 AM EDT History and Physical Notes * HPI (History [...] es 01/30/2024 Kody Servin Pasquale acute ab sce
--- OUTSIDE RECORDS SUMMARY | 2024-02-06 05:30 | XMS_ITS ---
Author Organization Kody Servin MD Address [address] [place], [place] [phone] Care Team Providers Care Ceramics Machine Operator Name Role Phone Kody Servin Primary Care [...] Location Date Provider Diagnosis Kody Servin MD [address] [place], [place] [phone] 02/06/2024 Kody Servin Acute abscess L02.91 Assessments [...] resolve completely Next Appt Details Provider Name:Kody García ier, 04/11/2025 02:30:00 PM, [address] [place] [address] Drive, [address], [place], [place], [phone], Progress Notes * Ambrose MORIN PDOB:[birth year] (58 yo M)Acc No.[id number]:02/06/2024 Patient: Ambrose Jordan Provider: Marsha Servin MD :1965 A ge:58 Y S ex:Male Date:02/06/2024 Address:[address] [place] [id number] Subjective: * Chief Complaints: * 1 week * HPI: S ymptom(s): patint is a 58 yo male here [...] MD Date: 0 02/06/2024 Generated for Priya potts/Ken/Jaiden on: 11:46 AM EDT History and Physical Notes [...]
--- OUTSIDE RECORDS SUMMARY | 2024-02-22 09:50 | XMS_ITS ---
Author Organization Kody Servin MD Address [address] [place] [phone] Care Team Providers Care Pinking Sewing Machine Operator Name Role Phone GarethNuryn Primary Care Provider [phone] REASON FOR VISIT ER Encounters Encounter Location Date Provider Diagnosis Kody Servin MD [address] [place] [phone] 02/22/2024 Kody Servin Plan Of Treatment Next Appt Details Provider Name:Kody García ier, 04/11/2025 02:30:00 PM, [address], Suite [facility], [place], [place], [phone], Progress Notes * Ambrose MORIN PDOB:[birth year] (58 yo M)Acc No.[id number]:02/22/2024 Patient: Ambrose Jordan :1965 A ge:58 Y S ex:Male Address:[address] [place], [place] [address], [address] * true * Date: Generated for Priya potts/Ken/Jaiden on: 11:46 AM EDT
--- OUTSIDE RECORDS SUMMARY | 2024-04-02 03:15 | XMS_ITS ---
Author Organization Kody Servin MD Address [address] [place], [place] [phone] Care Team Providers Care Writer Producer Name Role Phone GarethNuryn Primary Care Provider [phone] Results Component Value Reference Range Notes Complete Blood Count Auto Di ff Reviewed date:04/02/2024 12:19:26 PM Interpretation: Performing Lab:[facility], [address] [place] [phone] Notes/Report: White Blood Count 11.5 4.8-10.8 X10*3/uL [...] NRBC Abs Auto 0.000 0.0-0.012 X10*3/uL Comprehensive [place]. Panel Fa st Reviewed date:04/02/2024 12:39:33 PM Interpretation: Performing Lab:[facility], [address] [place] [phone] Notes/Report: Sodium 145 135-145 mmol/L Potassium 4.2 3.3-5.1 mmol/L Chloride 105 96-108 mmol/L Carbon Dioxide 27 22-29 mmol/L Anion Gap 17 12-20 Blood Urea Nitrogen 19 9-16 mg/dL Creatinine 0.91 0.5-1.4 mg/dL Estimated Glomerular Filt Rate > 60 NOTE: For -Welsh individuals, multiply the result by 1.210. Chronic [...] Panel Reviewed date:04/02/2024 12:24:41 PM Interpretation: Performing Lab:[facility], [address] [place] [phone] Notes/Report: Triglycerides 157 <150 mg/dL Desirable Triglyceride: [...] date:04/11/2024 08:23:06 AM Interpretation:NATALIA 04/09 PSA Performing Lab:[facility], [address] [place] [phone] Notes/Report: PSA,Total (Free>4and<10) 1.82 0.00-4.00 ng/mL A [...] t Reviewed date:04/02/2024 12:42:14 PM Interpretation: Performing Lab:[facility], [address] [place] [phone] Notes/Report: Urine, Clean Catch Color Urine Yellow Appearance Urine Clear PH 6.5 5.0-9.0 Glucose Urine UA Negative Negative mg/dL Urine Blood Negative Negative Specific [place] - Urine 1.020 1.005-1.025 Urine Protein Negative [...] Location Date Provider Diagnosis Kody Servin MD [address] [place] [address] [place] [phone] 04/02/2024 Kody Servin Blood tests for rout [...] Provider Name:Kody García ier, 04/11/2025 02:30:00 PM, [address] [place] [address], [address], [place], [place], [phone], Progress Notes * Ambrose MORIN PDOB:[birth year] (59 yo M)Acc No.[id number]:04/02/2024 Progress Note Patient: Ambrose VAZQUEZ Provider: Marsha Servin MD :1965 A ge:58 Y S ex:Male Date:04/02/2024 Address:[address] [place] [address] [phone] Subjective: * Chief Complaints: * 1 . [...] Time - 04/02/2024 07:15 AM) ?LAB: Comprehensive [place]. Panel Fast (Collection Date & Time - 04/02/2024 07:15 AM) ?LAB: Lipid Panel (Collection Date & Time - 04/02/2024 07:15 AM) ?LAB: PSA,Total (Free>4and<10) (Collection Date & Time - 04/02/2024 07:15 AM)* must see in next month for Kathi Yang 04/04/2024 08:28:01 AM PaytonKathi Sharma A 04/11/2024 08:22:56 AM EST > PATIENT KEPT APPT ?LAB: UA ClnCatch+Micro w/rflx Cult (Collection Date & Time - 04/02/2024 07:15 AM)3.?Leukocytosis, unspecified type?LAB: Complete Blood Count Auto Diff (Collection Date & Time - 04/02/2024 07:15 AM) ?LAB: Comprehensive [place]. Panel Fast (Collection Date & Time - 04/02/2024 07:15 AM) ?LAB: Lipid Panel (Collection Date & Time - 04/02/2024 07:15 AM) ?LAB: PSA,Total (Free>4and<10) (Collection Date & Time - 04/02/2024 07:15 AM)* must see in next month for Kathi Yang A 04/04/2024 08:28:01 AM EDTennille Dumontti A 04/11/2024 08:22:56 AM EST > PATIENT KEPT [...] Servin MD Date: 1 Generated for Priya potts/Ken/Adonayitting on: 11:45 AM EDT
--- OUTSIDE RECORDS SUMMARY | 2024-04-09 11:15 | XMS_ITS ---
Author Organization Kody Servin MD Address [address] [place], [place] [phone] Care Team Providers Care Manager Print Name Role Phone Gareth Kody Primary Care [...] Problem Status W/U Status Risk Notes Problem [id number] Atherosclerosis of abdominal aorta (I70.0) Active confirmed Vital Signs Blood pressure systolic 110 mm Hg 04/09/20 24 Blood pressure diastolic 80 mm Hg 024 Height 70 in 04/09/2024 Weight 194 lbs 04/09/2024 BMI 27.83 kg/m2 04/09/2024 weight is down 6 pounds [facility] e 9 Encounters Encounter Location Date Provider Diagnosis Kody Servin MD [address] [place], [place] [phone] 04/09/2024 Kody Servin Pure hypercholestero lemia E78.00 [...] Up: 1 Year, Reason: Provider Name:Kody lopez, 04/11/2025 02:30:00 PM, [address], [address], [place], [place], [phone], Progress Notes * Ambrose MORIN PDOB:[birth year] (58 yo M)Acc No.[id number]:04/09/2024 Progress Notes Patient: Ambrose Jordan Provider: Marsha Servin MD :1965 A ge:58 Y S ex:Male Date:04/09/2024 Address: [id number] Subjective: * Chief Complaints: * A nnual [...] mg/dL Urine Blood Negative Negative - Specific [place] - Urine 1.020 1.005-1.025 - Urine Protein [...] Auto 0.000 0.0-0.012 - X10*3/uL L ab:Comprehensive [place]. Panel Fast (Order Date - 04/02/2024) (Collection [...] Medicine: Counseling: C are goal follow-up plan: C ounseling for abnormal BMI provided?Yes, A toni Normal BMI Follow-up Marsha hernandez encouragement to exercise. Immunizations: I nfluenza H mikeye you had a flu shot since the most recent February 03? N o patient refused at visit today. * Follow Up: 1 Year * * Sign off status: Completed true * Provider: Marsha Servin MD Date: 06/09/2023 Generated for Priya potts/Ken/Wilfredosmitting on: 11:47 AM EDT History and Physical Notes * [...]
--- OUTSIDE RECORDS SUMMARY | 2024-07-11 03:30 | XMS_ITS ---
Author Organization Kody Servin MD Address [address] [place], [place] [phone] Care Team Providers Care Conveyor Belt Operator Name Role Phone GarethNuryn Primary Care Provider REASON FOR VISIT fasting liver lipids Encounters Encounter Location Date Provider Diagnosis Kody Servin MD [address] [place] [phone] 07/11/2024 Kody Servin Pure hypercholestero lemia E78.00 and Atherosclerosis of abdominal aorta I70.0 Assessments Encounter Date Diagnosis (ICD Code) Assessment Notes Treatment Notes Treatment Clinical Notes Section Notes 07/11/2024 Pure hypercholesterolemia (ICD-10 - E78.00) 07/11/2024 Atherosclerosis of abdominal aorta (ICD-10 - I70.0) Plan Of Treatment Next Appt Details Provider Name:Kody lopez, 04/11/2025 02:30:00 PM, [address], [address] [place] [address], [phone], Progress Notes * Ambrose MORIN PDOB:[birth year] (59 yo M)Acc No.[id number]:07/11/2024 Progress Note Patient: Ambrose VAZQUEZ Provider: Marsha Servin MD :1965 A ge:59 Y S ex:Male Date:07/11/2024 Address:[address] [place], [place] [phone] Subjective: * Chief Complaints: * 1 . [...] 0 07/11/2024 Generated for Priya potts/Ken/Wilfredosmitting on: 1 11:45 AM EDT
--- OUTSIDE RECORDS SUMMARY | 2024-08-02 09:57 | XMS_ITS ---
Author Organization Kody Servin MD Address [address] [place] [phone] Care Team Providers Care Nuclear Fuels Reclamation Engineer Name Role Phone GarethKody Primary Care Provider REASON FOR VISIT ins referral Encounters Encounter Location Date Provider Diagnosis Kody Servin MD [address] [place] [phone] 08/02/2024 Kody Servin Plan Of Treatment Next Appt Details Provider Name:Kody García ier, 04/11/2025 02:30:00 PM, [address], [address] [place] [address], [phone], Progress Notes * Ambrose MORIN PDOB:[birth year] (59 yo M)Acc No.[id number]:08/02/2024 Patient: Ambrose VAZQUEZ :1965 A ge:59 Y S ex:Male Address: [place], [address] * true * Date: Generated for Priya potts/Ken/Jaiden on: 11:47 AM EDT
--- OUTSIDE RECORDS SUMMARY | 2025-03-28 06:10 | XMS_ITS ---
Author Organization Kody Servin MD Address [address] [place] [phone] Care Team Providers Care Human Resources Operations Manager Name Role Phone MayaKody mccullough Primary Care Provider [phone] REASON FOR VISIT RF Atorvastatin Medications Medication SIG (Take, Route, Frequency, Duration) Notes Start Date End Date Status Atorvastatin Calcium 40 MG TAKE 1 TABLET BY MOUTH EVERY DAY Orally Once a day for 90 days Active Encounters Encounter Location Date Provider Diagnosis Kody Servin MD [address] [place] [phone] 03/28/2025 Kody Servin Atherosclerosis of abdominal aorta [...] days Next Appt Details Provider Name:Kody lopez, 04/11/2025 02:30:00 PM, [address] [place] [address] Drive, [address], [place], [place], [phone], Progress Notes * Ambrose MORIN PDOB:[birth year] (59 yo M)Acc No.[id number]:03/28/2025 Patient: Ambrose VAZQUEZ P :1965 A ge:59 Y S ex:Male Address:[address] [place] [address] [place], [address] * Refills Refill Atorvastatin Calcium Tablet, 40 MG, Orally, 90, TAKE 1 TABLET BY MOUTH EVERY DAY, Once a day, 90 days, Refills=3 * true * Date: Generated for Priya potts/Ken/Adonayitting on: 11:46 AM EDT
--- OUTSIDE RECORDS SUMMARY | 2025-04-04 03:15 | XMS_ITS ---
Author Organization Kody Servin MD Address [address] [place], [place] [address] Care Team Providers Care Carpenter Assistant Name Role Phone GarethNuryn Primary Care Provider [phone] Results Component Value Reference Range Notes Complete Blood Count Auto Di ff (Not yet reviewed by provider) Interpretation: Performing Lab:[facility], [address] [place] [phone] Notes/Report: White Blood Count 8.1 4.8-10.8 X10*3/uL [...] NRBC Abs Auto 0.000 0.0-0.012 X10*3/uL Comprehensive [place]. Panel Fa st (Not yet reviewed by provider) Interpretation: Performing Lab:[facility], [address] [place] [phone] Notes/Report: Sodium 142 135-145 mmol/L Potassium 4.0 [...] Alkaline Phosphatase 57 39-117 U/L Lipid Panel (Not yet reviewe d by provider) Interpretation: Performing Lab:[facility], [address] [place] [phone] Notes/Report: Triglycerides 152 <150 mg/dL Desirable Triglyceride: [...] low results in patients with liver disease. UA ClnCatch+Micro w/rflx Cul t (Not yet reviewed by provider) Interpretation: Performing Lab:[facility], [address] [place] [phone] Notes/Report: Urine, Clean Catch Color Urine Yellow Appearance Urine Clear PH 5.5 5.0-9.0 Glucose Urine UA Negative Negative mg/dL Urine Blood Trace Negative Specific [place] - Urine 1.025 1.005-1.025 Urine Protein Negative [...] Date Provider Diagnosis Kody Servin MD [address] [place], [place] [phone] 04/04/2025 Kody Servin Blood tests for rout ine general physical examination Z00.00 ; Pure hypercholesterolemia E78.00 ; Leukocytosis, unspecified type D72.829 and Encounter for administration of vaccine Z23 Assessments Encounter Date Diagnosis (ICD Code) Assessment Notes Treatment Notes Treatment Clinical Notes Section Notes 04/04/2025 Blood tests for rout ine general physical examination (ICD-10 - Z00.00) 04/04/2025 Pure hypercholesterolemia (ICD-10 - E78.00) 04/04/2025 Leukocytosis, unspecified type (ICD-10 - D72.829) 04/04/2025 Encounter for administration of vaccine (ICD-10 - Z23) Plan Of Treatment Pending Test Test Name Order Date Complete Blood Count Auto Diff Comprehensive [place]. Panel Fast Lipid Panel 04/04/2025 PSA,Total (Free>4and<10) 04/04/2025 UA ClnCatch+Micro w/rflx Cult 04/04/2025 Next Appt Details Provider Name:Kody García ier, 04/11/2025 02:30:00 PM, [address] [place] [address], [address], [place], [place], [id number], Progress Notes * Ambrose MORIN PDOB:[birth year] (59 yo M)Acc No.[id number]:04/04/2025 Progress Note Patient: Ambrose VAZQUEZ Provider: Marsha Servin MD :1965 A ge:59 Y S ex:Male Date:04/04/2025 Address:[address] [place], [place] [id number] Subjective: * Chief Complaints: * 1 . Yearly fasting labs. * Medical History: Objective: * Vitals: Assessment: * Assessment: 1. B lood tests for routine general physical examination - Z00.00 (Primary) 2 .?Pure hypercholesterolemia - E78.00 3 . L eukocytosis, unspecified type - D72.829 4 . E ncounter for administration of vaccine - Z23 Plan: * Treatment: 2. P ure hypercholesterolemia L AB: Complete Blood Count Auto Diff (Collection Date & Time - 04/04/2025 10:24 AM) L AB: Comprehensive [place]. Panel Fast (Collection Date & Time - 04/04/2025 10:24 AM) L AB: Lipid Panel (Collection Date & Time - 04/04/2025 10:24 AM) L AB: PSA,Total (Free>4and<10) L AB: UA ClnCatch+Micro w/rflx Cult (Collection Date & Time - 04/04/2025 10:24 AM) 3. L eukocytosis, unspecified type L AB: Complete Blood Count Auto Diff (Collection Date & Time - 04/04/2025 10:24 AM) L AB: Comprehensive [place]. Panel Fast (Collection Date & Time - 04/04/2025 10:24 AM) L AB: Lipid Panel (Collection Date & Time - 04/04/2025 10:24 AM) L AB: PSA,Total (Free>4and<10) L AB: UA ClnCatch+Micro w/rflx Cult (Collection Date & Time - 04/04/2025 10:24 AM) * Immunizations: Fluarix Quadrivalent - 150 : 0.5 mL (Dose No:1) (Route: Intramuscular) given by Phylicia Recio , Office Staff on Left Deltoid * Procedure Codes: 3 6415 VENIPUNCT, ROUTINE*, 95719 FLU VACCINE NO PRESERV 3 & >, 88469 IMMUNIZATION ADMIN * * The named appointment provid er may or may not be the originator of this progress note, and it is not deemed complete until electronically signed by the appointment provider. Sign off status: Pending * Provider: Marsha Servin MD Date: Generated for Priya potts/Ken/Adonayitting on: 11:46 AM EDT
[2025-04-04 10:26] LABS: MANUAL DIFF FLAG NO
[2025-04-04 11:16] LABS: Appearance Urine Clear; Glucose Urine UA Negative (Negative); PH 5.5 (5.0-9.0); Specific Gravity - Urine 1.025 (1.005-1.025); UMIC TRIGGER UACC YES
[2025-04-04 11:20] LABS: Hematocrit 49.5 % (42.0-52.0); Hemoglobin 16.3 g/dl (14.0-18.0); Imm Gran Abs Auto 0.02 X10*3/uL (0.00-0.03); Imm Gran Pct Auto 0.2 % (0.0-0.4); Lymphocytes Absolute Auto 2.4 X10*3/uL (1.2-4.9); Mean Corpuscular HGB Conc 32.9 g/dl (31.0-36.0); Mean Corpuscular Hemoglobin 28.9 pg (27.0-33.0); Mean Corpuscular Volume 87.8 fL (80.0-98.0); NRBC Abs Auto 0.000 X10*3/uL (0.0-0.012); NRBC Pct Auto 0.0 /100WBC (0.0-0.2); Platelet Count 282 X10*3/uL (160-400); Red Blood Count 5.64 X10*6/uL (4.60-5.80); White Blood Count 8.1 X10*3/uL (4.8-10.8)
[2025-04-04 11:41] LABS: Alanine Aminotransferase 35 U/L (0-40); Albumin Level 4.8 g/dL (3.5-5.0); Alkaline Phosphatase 57 U/L (39-117); Anion Gap 10 (12-20); Aspartate Amino Transferase 29 U/L (5-37); Blood Urea Nitrogen 22 mg/dL (9-16); Calcium 9.5 mg/dL (8.4-10.2); Carbon Dioxide 26 mmol/L (22-29); Chloride 110 mmol/L (96-108); Cholesterol 193 mg/dL (<200); Estimated Glomerular Filt Rate > 60; HDL Cholesterol 43 mg/dL (>40); Potassium 4.0 mmol/L (3.3-5.1); Sodium 142 mmol/L (135-145); Total Protein 7.5 g/dL (6.5-8.0); Triglycerides 152 mg/dL (<150)
--- OUTSIDE RECORDS SUMMARY | 2025-04-04 11:45 | XMS_ITS | Patient Health Record ---
Author Organization [facility] Address [address] [place] [address] Care Team Providers Care Claims Supervisor Name Role Phone Kody Servin MD Primary Care Provider Pito Chávez Jr Unavailable Reason For Referral No Information Medications Medication SIG (Take, Route, Frequency, Duration) Notes Start Date End Date Status Colyte with Flavor Packs 240 GM As directed Orally Over the specified time.; Duration: 1 day(s) Active Atorvastatin Calcium 10 MG take 1 tablet by mouth once daily Oral; Duration: 60 Active Aspirin Adult Low Dose 81 MG 1 tablet Orally Once a day Active Immunizations Vaccine Route Administration Date Status Comme nts Influenza Unknown 03/28/2017 Administered Social History Tobacco Use: Social History Observation Description Date Details (start date - stop date) Former Smoker NA - NA Tobacco Use/Smoking Question Answer Notes Patient is a former smoker How long has it been since you last smoked? > 10 years Alcohol Screen Question Answer Notes Did you have a drink contain ing alcohol in the past year? Yes How often did you have a dri nk containing alcohol in the past year? 2 to 4 times a month (2 points) How many drinks did you have on a typical day when you were drinking in the past year? 1 or 2 drinks (0 point) Points 2 Interpretation Negative Problems Problem Type SNOMED Code ICD Code Onset Dates Problem Status W/U Status Risk Notes Problem Colon cancer screening (279514254) Colon cancer screening (Z12.11) Active confirmed Problem Pre-procedure evaluation check (830113065) Encounter for other preprocedural examination (Z01.818) Active confirmed Problem Long-term current use of antiplatelet drug (624972957516029 ) Long-term use of aspirin therapy (Z79.82) Active confirmed Plan Of Treatment Future Test Test Name Order Date COLONOSCOPY 03/30/2017 Insurance Providers Payer Name Payer Address Payer Phone Subscriber Number Group Number Insured Name Patient Relationship to Insured Coverage Start Date Coverage End Date [facility] [employer] CLAIMS [address] [place] [address] [id number] AURY MORIN Self - patient is the insured Medical (General) History Medical History History ICD Code elevated cholesterol Surgical History Surgery Date(Month/Year) hernia left 2017 hernia right 2015 pterygium left 2014 pterygium right 2012
--- OUTSIDE RECORDS SUMMARY | 2025-04-04 11:46 | XMS_ITS | Patient Health Record ---
Author Organization Kody Servin MD Address [address] [place], [place] [address] Care Team Providers Care Occupational Psychologist Name Role Phone GarethNuryn Primary Care Provider [phone] Allergies No Known Allergies Results Component Value Reference Range Notes Complete Blood Count Auto Di ff (Not yet reviewed by provider) Interpretation: Performing Lab:[facility], [address] [place] [phone] Notes/Report: White Blood Count 8.1 4.8-10.8 X10*3/uL [...] X10*3/uL Comprehensive [place]. Panel Fa st (Not yet reviewed by provider) Interpretation: Performing Lab:[facility], [address] [place] [phone] Notes/Report: Sodium 142 135-145 mmol/L Potassium 4.0 [...] yet reviewe d by provider) Interpretation: Performing Lab:[facility], [address] [place] [phone] Notes/Report: Triglycerides 152 <150 mg/dL Desirable Triglyceride: [...] (Not yet reviewed by provider) Interpretation: Performing Lab:[facility], [address] [place] [phone] Notes/Report: Urine, Clean Catch Color Urine Yellow Appearance Urine Clear PH 5.5 5.0-9.0 Glucose Urine UA Negative Negative mg/dL Urine Blood Trace Negative Specific [place] - Urine 1.025 1.005-1.025 Urine Protein Negative Neg-Trace mg/dL Urine Ketones Negative Negative mg/dL Nitrite Urine Negative Negative Leukocyte Esterase Urine Negative Negative RBC Urine 0-2 0-2 /HPF WBC Urine 0-5 0-5 /HPF Squamous Epithelial Cell Urine 0-2 0-2 /HPF Bacteria Urine None Seen None Seen Hyaline Casts Urine 0-2 0-2 /LPF US renal BI Reviewed date:08/27/2024 08:05:15 PM Interpretation: Performing Lab: Notes/Report: [facility] [place] [address] Ultrasound Report Signed Patient: Ambrose Ward MR#: [id number] : 1965 Acct:[id number] Age/Sex: 59 / M ADM Date: 08/26/24 Loc: HO.HMGCX Attending Dr: Yanni RIVERA Ordering Physician: Yanni Oliver Date of Service: 08/26/24 Procedure(s): US renal BI Accession Number(s): [id number] cc: Kody Servin MD; Yanni Oliver CLINICAL HISTORY: N20.0 - Calculus of kidney US Renal Comparison: None Findings: Right kidney normal size and echotexture, 11.4 cm length. Left kidney normal size and echotexture, 11.6 cm length. Small lower pole cyst measuring up to 1.1 cm greatest diameter No renal calculi are noted. No collecting system dilatation of either kidney. Normal color Doppler. IMPRESSION: 1. No renal calculi noted. Small cyst lower pole left kidney. This document has been electronically signed by: Andi Alcazar MD on 08/27/2024 13:36:07 Dictated By: Andi Alcazar MD Signed By: <Electronically signed by Andi Alcazar MD in OV> 08/27/24 1337 DD/ 1336 TD/TT: 08/27/24 1336 Fisheries Specialist: [facility] [address] [place] [address] [place] [address] Ultrasound Report Signed Patient: Carmen Ward MR#: [id number] : 1965 Acct:[id number] Age/Sex: 59 / M ADM Date: 08/26/24 Loc: .[facility] Attending Dr: Yanni RIVERA Ordering Physician: Yanni Oliver Date of Service: 08/26/24 Procedure(s): US lexii al BI Accession Number(s): [id number] cc: Kody Servin MD; Yanni Oliver CLINICAL HISTORY: N2 0.0 - Calculus of kidney US Renal Comparison: None Findings: Right kidney normal size and echotexture, 11.4 cm length. Left kidney normal s ize and echotexture, 11.6 cm length. Small lower pole cyst measuring up to 1.1 cm greatest diameter No renal calculi are noted. No collecting system dilatation of either kidney. Normal color Doppler. IMPRESSION: 1. No renal calculi noted. Small cyst lower pole left kidney. This document has be en electronically signed by: Andi Alcazar MD on 08/27/2024 13:36:07 Dictated By: Andi Alcazar MD Signed By: <Electronically signed by Andi Alcazar MD in OV> 08/27/24 1337 DD/ 1336 TD/TT: 08/27/24 1336 Fisheries Specialist: Reason For Referral No Information Medications Medication SIG (Take, Route, Frequency, Duration) Notes Start Date End Date Status Aspirin 81 MG 1 tablet Orally Once a day for 30 day(s) Not-Taking Flonase 50 MCG/ACT 1 spray in each nost ril Nasally Once a day for 30 day(s) 10/15/2013 Not-Taking Atorvastatin Calcium 40 MG TAKE 1 TABLET BY MOUTH EVERY DAY Orally Once a day for 90 days Active Immunizations Vaccine Route Administration Date Status Comme nts Flu Vaccine IM Intramuscular 05/01/2012 Administered Flu Vaccine Unknown 02/03/2013 Administered [facility] Fluarix Quadrivalent IM Intramuscular 04/11/2016 Administe red Fluarix Quadrivalent IM Intramuscular 07/03/2018 Administe red SARS-COV-2 Moderna Unknown 08/03/2020 Administered SARS-COV-2 Moderna Unknown 09/12/2020 Administered SARS-COV-2 Moderna Unknown 04/28/2021 Administered Fluarix Quadrivalent IM Intramuscular 03/25/2022 Administe red Fluarix Quadrivalent - 150 IM Intramuscular 04/04/2025 Administered Flu Vaccine Unknown 07/22/2014 Refused Flu Vaccine [...] Problem Status W/U Status Risk Notes Problem 802746812 Atherosclerosis of abdominal aorta (I70.0) Active confirmed Problem 71433954592544287 Acute recurren t maxillary sinusitis (J01.01) Active confirmed Problem 699166168 History of hemat uria (Z87.448) Active confirmed Problem 244045537 Leukocytosis, unspecified type (D72.829) Active confirmed Problem 681667727 Pure hypercholesterolemia (E78.00) Active confirmed Problem 20235043 Pterygium, unspe cified (H11.009) Active confirmed Vital Signs Blood pressure diastolic 80 mm Hg 04/09/2024 [...] Location Date Provider Diagnosis Kody Servin MD [address] [place] [phone] 04/04/2025 Kody Servin Blood tests for rout ine general physical examination Z00.00 ; Pure hypercholesterolemia E78.00 ; Leukocytosis, unspecified type D72.829 and Encounter for administration of vaccine Z23 Kody Servin MD [address] [place] [address] [phone] 04/09/2024 Kody Servin Pure hypercholestero lemia E78.00 ; Annual physical exam Z00.00 ; Atherosclerosis of abdominal aorta I70.0 and Depression screening Z13.31 Kody Servin MD [address] [place] [address] [address] [place] [phone] 08/02/2024 Kody Servin MD [address] [place] [address] [address] [phone] 03/28/2025 Kody Servin Atherosclerosis of abdominal aorta I70.0 Assessments Encounter Date Diagnosis (ICD Code) Assessment Notes Treatment Notes Treatment Clinical Notes Section Notes 04/04/2025 Blood tests for rout ine general physical examination (ICD-10 - Z00.00) 04/04/2025 Pure hypercholesterolemia (ICD-10 - E78.00) 04/09/2024 Pure hypercholesterolemia (ICD-10 - E78.00) will get closer to 75 04/09/2024 Annual physical exam (ICD-10 - Z00.00) labs reviewed and discussed with patient 03/28/2025 Atherosclerosis of abdominal aorta (ICD-10 - I70.0) 04/04/2025 Leukocytosis, unspecified type (ICD-10 - D72.829) 04/09/2024 Atherosclerosis of abdominal aorta (ICD-10 - I70.0) increase atorvastin to 40, patient verbalized understanding of change in dose of medication 04/04/2025 Encounter for administration of vaccine (ICD-10 - Z23) 04/09/2024 Depression screening (ICD-10 - Z13.31) negative screen Plan Of Treatment Pending Test Test Name Order Date CT ABD & PELVIS WITH CONTRAST 09/27/2011 XR GI SERIES 01/14/2019 Complete Blood Count Auto Diff Comprehensive [place]. Panel Fast 5 Lipid Panel 04/04/2025 PSA,Total (Free>4and<10) 04/04/2025 UA ClnCatch+Micro w/rflx Cult 04/04/2025 Next Appt Details Provider Name:Kody García ier, 04/11/2025 02:30:00 PM, [address] [facility], [address], [place], [place], [phone], Insurance Providers Payer Name Payer Address Payer Phone Subscriber Number Group Number Insured Name Patient Relationship to Insured Coverage Start Date Coverage End Date [employer] [address] [place], [place] [phone] [id number] Ambrose Ward Self - patient is the insured Medical (General) History Medical History History ICD Code back pain. cysto 2012 neg pteryigium operated by Dr Silveira mass ey e and ear Colonoscopy done 07/26/17 Dr Eng,rep eat 10 years
--- OUTSIDE RECORDS SUMMARY | 2025-04-04 11:47 | XMS_ITS | Data Portability ---
Author Organization STEPHANIE Leonardo s, [address] Address [address] [place] [address] Care Team Providers Care Robot Operator Name Role Phone PETER RON Primary Care Provider Assessment No assessment recorded. Plan of Treatment Reminders Order Date Submit Date Provider Last Modified By Organization Details Last Modified Time Details Appointments None recorded. Lab None recorded. Referral None recorded. Procedures None recorded. Surgeries None recorded. Imaging None recorded. Medication Orders doxycycline hyclate [address] [id number], [address] [place], [address], 10:24:18 mupirocin 2 % topical ointment [address] [id number], [address] [place], [address], 10:24:18 Patient TargetsNo targets recorded. Patient Instructions Encounter Date Encounter Id Patient Instructions Last Modified By Organization Details Last Modified Time 01/28/2023 [id number] folliculitis: care instructions [email or web address] Not available 01/28/2023 10:24:15 Take the antibiotic [...] chills, abscess formation or other worsening symptoms. [email or web address] Not available 01/28/2023 10:25:59 Reason for Referral None Reported. Problems Name Problem SNOMED Code Status Onset Date Resolution Date Notes Provider Name and Address Organization Details Recorded Time Hypercholestero lemia 78117071 Active 2022 STEPHANIE Robles [facility] 3 10:04:43 Problem Notes None recorded. Procedures Surgical History Date Name Laterality Status Provider Name and Address Organization Details Recorded Time Hernia Repair completed SHANNAN Ruiz [facility] 01/28/2023 10:06:41 Imaging Results None recorded. [...] blood by Pulse oximetry Heart rate Systolic And Diastolic Provider Name and Address Organization Details Last Updated DateTime 3 16 /min 177.8 cm 27.3 kg/m2 78126.5 5 g 97.5 [degF] 97 % 97 % 83 /min 115/82 mm[Hg] SHANNAN Huston [facility] 3 10:08:24 Social History Question Answer Notes LastModified by Organizat ion Details LastModified Time Tobacco Smoking Status Never Smoker STEPHANIE Robles - [facility] 01/28/2023 10:06:06 Which Illicit Or Recreational Drugs Have You Used? Marijuana [email or web address] Information not available 01/28/2023 Have You Recently Traveled Abroad? Yes Antonieta [email or web address] Information not available 01/28/2023 Sex: Unknown Functional Status Question Answer Note LastModified by Organizat ion Details LastModified Time Do you use any illicit or recreational drugs? Yes Information not available 01/28/2023 Do you or have you ever used any other forms of tobacco or nicotine? No Information not available 01/28/2023 What is your level of alcohol consumption? Occasional Information not available 01/28/2023 Mental Status None recorded. Family History Relationship Description Onset Age of this Age Resolved Age Notes LastModified by Organization Details LastModified Time Unspecified Relation Heart disease [email or web address] Not available 2022 10:05:04 Unspecified Relation Parkinson's disease [email or web address] Not available 2022 10:05:11 Unspecified Relation Carcinoma of prostate [email or web address] Not available 2022 10:05:24 Medical History No medical history recorded. Past Encounters Encounter ID Performer Location Encounter Start Date Encounter Closed Date Diagnosis/Indication Diagnosis SNOMED-CT Code Diagnosis ICD10 Code Diagnosis IMO Codes Diagnosis Note [id number] [address] [place] [phone] 11/30/2019 15:57:43 11/30/2019 17:43:45 [id number] [address] [address] [place] [phone] 11/26/2016 09:16:14 11/26/2016 09:45:24 [id number] [address] [place] [address] 10/30/2016 09:48:23 10/30/2016 10:24:14 [id number] [place] [address] [facility] [address] [place] [address] 01/28/2023 09:30:20 01/28/2023 10:29:39 Acute folliculitis 958104751 L73.9 Health Concerns Section Related Observation LastModified by Organization Detai ls LastModified Time None Recorded Concern Status LastModified by Organization Details LastModified Time None Recorded Advance Directives Directive None Recorded Payers Insurance Date Sequence Insurance Name Policy Number Policy Cheatham Covered Member ID Cheatham Member ID Guarantor Name 01/30/2023 1 [facility]: [facility] [place] [id number] Ambrose Meadreji [id number] Notes Date Note Type Note Provider Name and Address Organization Details Recorded Time 01/28/2023 text/html UC Rash/Skin LesionReported by PatientHPIFor quality, patient reportsitchy,painful,re d, andspreading. For source of patient information, patient reportsinformation obtained from patientandpatient arrived at urgent care ambulatory. For location, patient reportsfaceandneck. For severity, patient reportsmoderate. For duration, patient reports5 days. For context, patient reportsno new detergent or skin product,no recent change in medication,no expsoure to new clothes/jewelry,no recent travel,no recent illness, andnot affiliated with chemicals/pesticides. For alleviating factors, patient reportsnothing gives relief. For associated symptoms, patient reportsno feverandno fatigue. For treatment history, patient reportsno history of treatment.57 year old male presenting for evaluation of a mildly pruritic, somewhat painful, papular and pustular rash on his face extending to his anterior neck region getting worse for the past week. Symptoms began after shaving with a razor. No fever, chills, purulent drainage, bleeding, lip or tongue swelling, hives, trouble breathing, vomiting, dizziness, headache or neck stiffness. Li Carpenter MD [facility] [place], [address], [place] - [facility] 01/28/2023 10:32:59
[2025-04-04 12:10] LABS: PSA,Total (Free>4and<10) 1.76 ng/mL (0.00-4.00)
== END 2025-04-04 10:23 | disposition home or self-care (01) ==
LOC: HO.LNP 10:22
PROVIDERS: Visit Provider Internal Medicine
DX: Z00.00 Encounter for general adult medical examination without abnormal findings (principal); Z12.5 Encounter for screening for malignant neoplasm of prostate; E78.00 Pure hypercholesterolemia, unspecified; D72.829 Elevated white blood cell count, unspecified
CPT/HCPCS: 80053; 80061; 81001; 84153; 85025

== ENCOUNTER 2025-04-29 10:13 | Outpatient (REF) | payer BC, SELFPAY ==
--- OUTSIDE RECORDS SUMMARY | 2024-01-30 09:15 | XMS_ITS ---
Author Organization Kody Servin MD Address [address] [place], [place] [id number] Care Team Providers Care Security Compliance Engineer Name Role Phone GarethKody Primary Care Provider [phone] Allergies No Known Allergies Reason For Referral Reason acute abscess Diagnosis 1 Acute abscess (L02.9 1) Referral Organization Kody Servin MD Referring Provider First Name Kody Referring Provider Last Name Gareth Referring Provider Speciality Internal M edicine Referred Provider Blanco Koenig Referred Provider Specialty Surgery General Notes Cuca Chaudhry 09:27:11 AM EDT > juan faxed with ins referral Referral Priority Routine Referral Appointment Date 02/07/2024 REASON FOR VISIT large painful lump left groin area x 2days Medications Medication SIG (Take, Route, Frequency, Duration) Notes Start Date End Date Status Doxycycline Hyclate 100 MG 1 capsule Orally Twice a day for 10 day(s) 01/30/2024 Active Flonase 50 MCG/ACT 1 spray in each nost ril Nasally Once a day for 30 day(s) 10/15/2013 Not-Taking Aspirin 81 MG 1 tablet Orally Once a day for 30 day(s) Not-Taking Atorvastatin Calcium 20 MG TAKE 1 TABLET BY MOUTH EVERY DAY Active Vital Signs Blood pressure systolic 102 mm Hg 01/30/20 24 Blood pressure diastolic 80 mm Hg 024 Height 70 in 01/30/2024 Weight 198 lbs 01/30/2024 BMI 28.41 kg/m2 01/30/2024 weight is up 7 pounds since 04-04-23 Encounters Encounter Location Date Provider Diagnosis Kody Servin MD [address] [place] [address] [place] [phone] 01/30/2024 Kody Servin Acute abscess L02.91 Assessments Encounter Date Diagnosis (ICD Code) Assessment Notes Treatment Notes Treatment Clinical Notes Section Notes 01/30/2024 Acute abscess (ICD-10 - L02.91) warm compresses. referral to dr kraus next week in case it doesn't resolve, patient verbalized understanding of medication and directions for use Plan Of Treatment Medication Medication Name Sig Start Date Stop Date Notes Doxycycline Hyclate 100 MG 1 capsule Ora lly Twice a day for 10 day(s) 01/30/2024 Treatment Notes Assessment Notes Acute abscess warm compresses. ref erral to dr kraus next week in case it doesn't resolve, patient verbalized understanding of medication and directions for use Referrals Referral Date Details 01/30/2024 01/30/2024, acute ab scess , Blanco Koenig Next Appt Details Follow Up: 1 Week, Reason: Provider Name:Kody lopez, 10/09/2025 07:30:00 AM, [address] [place] [address], [address], [phone], Provider Name:Kody lopez, 10/13/2025 03:00:00 PM, [address] [place] [address], [address], [phone], Provider Name:Kody lopez, 04/09/2026 08:00:00 AM, [address] [place] [address], [address], [phone], Provider Name:Kody lopez, 04/16/2026 02:30:00 PM, [address], [address], [place], [place], [phone], Progress Notes * Ambrose MORIN PDOB:[birth year] (58 yo M)Acc No.[id number]:01/30/2024 Progress Notes Patient: Ambrose Jordan Provider: Marsha Servin MD :1965 A ge:58 Y S ex:Male Date:01/30/2024 Address:[address] [place] [address] [place], [place] Subjective: * Chief Complaints: * L arge painful lump left groin area x 2days * HPI: S ymptom(s): patient is a 58 yo male has a large painful lump on scrotum that ruptured yesterday and has decresed by 50%, had lesion for 2 days. * ROS: G eneral/Constitutional: Denies C hills. D enies F atigue. D enies F ever. D enies H eadache. E NT: Patient denies d ecreased sense of smell , any loss of taste , sore throat. D enies S ore throat. R espiratory: Denies C ough. D enies S hortness of breath at rest. D enies S hortness of breath with exertion. G astrointestinal: Denies D iarrhea. D enies N ausea. M usculoskeletal: Patient denies m uscle aches. P eripheral Vascular: Patient denies r ed and blue toes. * Medical History: * Surgical History: * Hospitalization/Major Diagno stic Procedure: * Medications: T akingAtorvastatin Calcium 20 MG Tablet TAKE 1 TABLET BY MOUTH EVERY DAY Taking Atorvastatin Calcium 20 MG Tablet TAKE 1 TABLET BY MOUTH EVERY DAY Not-Taking/PRNAspirin 81 MG Tablet Chewable 1 tablet Orally Once a dayFlonase 50 MCG/ACT Suspension 1 spray in each nostril Nasally Once a dayMedication List reviewed and reconciled with the patientNot-Taking/PRN Aspirin 81 MG Tablet Chewable 1 tablet Orally Once a dayNot-Taking/PRN Flonase 50 MCG/ACT Suspension 1 spray in each nostril Nasally Once a dayMedication List reviewed and reconciled with the patient * Allergies: N .K.D.A.yes[Allergies Verified] Objective: * Vitals: H t: 70, Wt:198, BMI:28.41, BP:102/80 weight is up 7 pounds since 04-04-23. * Examination: G eneral Examination: GENERAL APPEARANCE: alert, well hydrated, in no distress . MALE GENITOURINARY: abnormal left side of scrotum that is about 2 inches in diameter, and has an area that is draining. Assessment: * Assessment: 1. A cute abscess - L02.91 (Primary) Plan: * Treatment: * Procedure Codes: * Follow Up: 1 Week * * Sign off status: Completed true * Provider: Marsha Servin MD Date: 0 01/30/2024 Generated for Priya potts/Ken/Adonayitting on: 06/29/2024 12:29 PM EST History and Physical Notes * HPI (History of Present Illness) Category Sub-Category Detail Notes Category Not es Symptom(s) patient is a 58 yo male has a large painful lump on scrotum that ruptured yesterday and has decresed by 50%, had lesion for 2 days Examination Category Sub-Category Detail Notes Category Not es General Examination GENERAL APPEARANCE: alert, w ell hydrated, in no distress MALE GENITOURINARY: abnormal left side o f scrotum that is about 2 inches in diameter, and has an area that is draining Consultation Request Notes Referral Date Referring Provider Referred Provider Not es 01/30/2024 Kody Servin Pasquale acute ab scess
--- OUTSIDE RECORDS SUMMARY | 2024-02-06 04:30 | XMS_ITS ---
Author Organization Kody Servin MD Address [address] [place], [place] [phone] Care Team Providers Care Otorhinolaryngologist Name Role Phone Kody Servin Primary Care Provider [phone] Allergies No Known Allergies REASON FOR VISIT 1 week Medications Medication SIG (Take, Route, Frequency, Duration) Notes Start Date End Date Status Flonase 50 MCG/ACT 1 spray in each nost ril Nasally Once a day for 30 day(s) 10/15/2013 Not-Taking Aspirin 81 MG 1 tablet Orally Once a day for 30 day(s) Not-Taking Atorvastatin Calcium 20 MG TAKE 1 TABLET BY MOUTH EVERY DAY Active Doxycycline Hyclate 100 MG 1 capsule Orally Twice a day 01/30/2024 Active Vital Signs Blood pressure systolic 102 mm Hg 02/06/20 24 Blood pressure diastolic 70 mm Hg 024 Height 70 in 02/06/2024 Weight 200 lbs 02/06/2024 BMI 28.69 kg/m2 02/06/2024 weight is up 2 pounds since 01-30-24 Encounters Encounter Location Date Provider Diagnosis Kody Servin MD [address] [place] [phone] 02/06/2024 Kody Servin Acute abscess L02.91 Assessments Encounter Date Diagnosis (ICD Code) Assessment Notes Treatment Notes Treatment Clinical Notes Section Notes 02/06/2024 Acute abscess (ICD-10 - L02.91) will continue current regiment, is resolving nicely and does not appear that he will need surgery, will continue to monitor, advised to continue warm compresses and return if sx's do not continue to improve and resolve completely Plan Of Treatment Medication Medication Name Sig Start Date Stop Date Notes Doxycycline Hyclate 100 MG 1 capsule Orally Twice a day Treatment Notes Assessment Notes Acute abscess will continue curren t regiment, is resolving nicely and does not appear that he will need surgery, will continue to monitor, advised to continue warm compresses and return if sx's do not continue to improve and resolve completely Next Appt Details Provider Name:Kody lopez, 10/09/2025 07:30:00 AM, [address] [place] [address], [address], [phone], Provider Name:Kody lopez, 10/13/2025 03:00:00 PM, [address] [place] [address], [address], [phone], Provider Name:Kody lopez, 04/09/2026 08:00:00 AM, [address] [place] [address], [address], [phone], Provider Name:Kody lopez, 04/16/2026 02:30:00 PM, [address] [place] [address], [phone], Progress Notes * Ambrose MORIN PDOB:[birth year] (58 yo M)Acc No.[id number]:02/06/2024 Patient: Susanna Ambrose menendez Provider: Marsha Servin MD :1965 A ge:58 Y S ex:Male Date:02/06/2024 Address: [place], [id number] Subjective: * Chief Complaints: * 1 week * HPI: S ymptom(s): susan is a 58 yo male here for one week follow up visit paul chan. * ROS: G eneral/Constitutional: Denies C hills. [...] TAKE 1 TABLET BY MOUTH EVERY DAY Doxycycline Hyclate 100 MG Capsule 1 capsule Orally Twice a dayTaking Atorvastatin Calcium 20 MG Tablet TAKE 1 TABLET BY MOUTH EVERY DAY Taking Doxycycline Hyclate 100 MG Capsule 1 capsule Orally Twice a dayNot-Taking/PRNAspirin 81 MG Tablet Chewable 1 tablet Orally [...] Verified] Objective: * Vitals: H t: 70, Wt:200, BMI:28.69, BP:102/70 weight is up 2 pounds since 01-30-24. * Examination: G eneral Examination: GENERAL APPEARANCE: alert, well hydrated, in no distress . MALE GENITOURINARY: abnormal with a small nodule that is not draining at this time. will continue with warm compresses and if this doesn't go away completely to return. Assessment: * Assessment: 1. A cute abscess - L02.91 (Primary) Plan: * Treatment: * Procedure Codes: * * Sign off status: Completed true * Provider: Marsha Servin MD Date: 0 02/06/2024 Generated for Priya potts/Ken/Adonayitting on: 06/29/2024 12:28 PM EST History and Physical Notes * HPI (History of Present Illness) Category Sub-Category Detail Notes Category Not es Symptom(s) patint is a 58 yo male here for one week follow up visit groin abcess Examination Category Sub-Category Detail Notes Category Not es General Examination GENERAL APPEARANCE: alert, w ell hydrated, in no distress MALE GENITOURINARY: abnormal with a smal l nodule that is not draining at this time. will continue with warm compresses and if this doesn't go away completely to return
--- OUTSIDE RECORDS SUMMARY | 2024-02-22 08:50 | XMS_ITS ---
Author Organization Kody Servin MD Address [address] [place] [phone] Care Team Providers Care Bicycle Courier Name Role Phone GarethKody Primary Care Provider [phone] REASON FOR VISIT ER Encounters Encounter Location Date Provider Diagnosis Kody Servin MD 10 [facility] [address] [place] [phone] 02/22/2024 Kody Servin Plan Of Treatment Next Appt Details Provider Name:Kody lopez, 10/09/2025 07:30:00 AM, [address] [place] [address], Suite [facility], [place], [place], [phone], Provider Name:Kody lopez, 10/13/2025 03:00:00 PM, [address] [place] [address], [place] [address], [place], [place], [phone], Provider Name:Kody lopez, 04/09/2026 08:00:00 AM, [address], [address], [place], [phone], Provider Name:Kodyyulissa lopez, 04/16/2026 02:30:00 PM, [address], [address], [place], [phone], Progress Notes * Ambrose MORIN PDOB:[birth year] (58 yo M)Acc No.[id number]:02/22/2024 Patient: Ambrose Jordan :1965 A ge:58 Y S ex:Male Address:[address] [place] [address] [place], [id number] * true * Date: Generated for Priya potts/Ken/eTerichsmitting on: 06/29/2024 12:29 PM EST
--- OUTSIDE RECORDS SUMMARY | 2024-04-02 02:15 | XMS_ITS ---
Author Organization Kody Servin MD Address [address] [place], [place] [phone] Care Team Providers Care Costume Shop Coordinator Name Role Phone MayaNury mcculloughn Primary Care Provider Results Component Value Reference Range Notes Complete Blood Count Auto Di ff Reviewed date:04/02/2024 12:19:26 PM Interpretation: Performing Lab:[facility], [address] [place] [phone] Notes/Report: White Blood Count 11.5 4.8-10.8 X10*3/uL Red Blood Count 5.30 4.60-5.80 X10*6/uL Hemoglobin 15.9 14.0-18.0 g/dl Hematocrit 47.0 42.0-52.0 % Mean Corpuscular Volume 88.7 80.0-98.0 fL Mean Corpuscular Hemoglobin 30.0 27.0-33.0 pg Mean Corpuscular HGB Conc 33.8 31.0-36.0 g/dl Red Cell Distribution Width 13.1 11.0-16.0 % Platelet Count 334 160-400 X10*3/uL Mean Platelet Volume 10.3 9.4-12.4 fL Neutrophils Percent Auto 67.6 45-73 % Imm Gran Pct Auto 0.6 0.0-0.4 % Lymphocytes Percent Auto 19.3 20-40 % Monocytes Percent Auto 8.7 2-11 % Eosinophils Percent Auto 3.2 0-4 % Basophils Percent Auto 0.6 0-2 % NRBC Pct Auto 0.0 0.0-0.2 /100WBC Neutrophils Absolute Auto 7.8 2.0-8.3 x10*3/u L Imm Gran Abs Auto 0.07 0.00-0.03 X10*3/uL Lymphocytes Absolute Auto 2.2 1.2-4.9 X10*3/u L Monocytes Absolute Auto 1.0 0.1-1.2 X10*3/uL Eosinophils Absolute Auto 0.4 0.0-0.4 X10*3/u L Basophils Absolute Auto 0.1 0.0-0.2 X10*3/uL NRBC Abs Auto 0.000 0.0-0.012 X10*3/uL Comprehensive [place]. Panel Fa st Reviewed date:04/02/2024 12:39:33 PM Interpretation: Performing Lab:[facility], [address] [place] [phone] Notes/Report: Sodium 145 135-145 mmol/L Potassium 4.2 3.3-5.1 mmol/L Chloride 105 96-108 mmol/L Carbon Dioxide 27 22-29 mmol/L Anion Gap 17 12-20 Blood Urea Nitrogen 19 9-16 mg/dL Creatinine 0.91 0.5-1.4 mg/dL Estimated Glomerular Filt Rate > 60 NOTE: For -Uzbek individuals, multiply the result by 1.210. Chronic Kidney Disease: Estimated GFR < 60 mL/min/1.73m2 Severe Kidney Disease: Estimated GFR < 15 mL/min/1.73m2 Glucose Fasting 85 60-99 mg/dL Calcium 9.8 8.4-10.2 mg/dL Bilirubin Total 0.6 0.0-1.0 mg/dL Aspartate Amino Transferase 23 5-37 U/L Alanine Aminotransferase 23 0-40 U/L Total Protein 7.7 6.5-8.0 g/dL Albumin Level 4.4 3.5-5.0 g/dL Alkaline Phosphatase 65 39-117 U/L Lipid Panel Reviewed date:04/02/2024 12:24:41 PM Interpretation: Performing Lab:[facility], [address] [place] [phone] Notes/Report: Triglycerides 157 <150 mg/dL Desirable Triglyceride: less than 150 mg/dL Borderline High Triglyceride 150-199 mg/dL High Triglyceride: 200-499 mg/dL Very High Triglyceride: greater than or equal to 5OO mg/dL Cholesterol 181 <200 mg/dL Desirable Cholesterol: less than 200 mg/dL Borderline High Cholesterol: 200-239 mg/dL High Cholesterol: greater than 239 mg/dL LDL Cholesterol Calculated 106 <100 mg/dL Desirable LDL: less than 100 mg/dL Near Optimal/Above Optimal LDL: 110-129 mg/dL Borderline High LDL: 130-159 mg/dL High LDL: 160-189 mg/dL Very High LDL: greater than or equal to 190 mg/dL HDL Cholesterol 44 >40 mg/dL Desirable HDL: greater than 40 mg/dL Note: This HDL assay may give artificially low results in patients with liver disease. PSA,Total (Free>4and<10) Reviewed date:04/11/2024 08:23:06 AM Interpretation:NATALIA 04/09 PSA Performing Lab:[facility], [address] [place] [phone] Notes/Report: PSA,Total (Free>4and<10) 1.82 0.00-4.00 ng/mL A Free PSA was not performed: The percentage of Free PSA can be used to enhance the differentiation of prostate cancer from benign prostatic disease in subjects whose PSA levels are between 4.0 and 10.0 ng/mL. For subjects whose PSA levels are below 4.0 or above 10.0 ng/mL, the risk of prostate cancer is determined on the basis of the PSA alone. Therefore the % Free PSA is recommended only for those subjects whose PSA levels are between 4.0 and 10.0 ng/mL. PSA methodology: Feliciano Alinity i Chemiluminescent Microparticle Immunoassay (CMIA) UA ClnCatch+Micro w/rflx Cul t Reviewed date:04/02/2024 12:42:14 PM Interpretation: Performing Lab:[facility], [address] [place] [phone] Notes/Report: Urine, Clean Catch Color Urine Yellow Appearance Urine Clear PH 6.5 5.0-9.0 Glucose Urine UA Negative Negative mg/dL Urine Blood Negative Negative Specific [place] - Urine 1.020 1.005-1.025 Urine Protein Negative Neg-Trace mg/dL Urine Ketones Negative Negative mg/dL Nitrite Urine Negative Negative Leukocyte Esterase Urine Negative Negative RBC Urine 0-2 0-2 /HPF WBC Urine 0-5 0-5 /HPF Squamous Epithelial Cell Urine 0-2 0-2 /HPF Bacteria Urine None Seen None Seen Hyaline Casts Urine 0-2 0-2 /LPF REASON FOR VISIT yearly fasting labs Encounters Encounter Location Date Provider Diagnosis Kody Servin MD [address] [place] [phone] 04/02/2024 Kody Servin Blood tests for rout ine general physical examination Z00.00 ; Pure hypercholesterolemia E78.00 and Leukocytosis, unspecified type D72.829 Assessments Encounter Date Diagnosis (ICD Code) Assessment Notes Treatment Notes Treatment Clinical Notes Section Notes 04/02/2024 Blood tests for rout ine general physical examination (ICD-10 - Z00.00) 04/02/2024 Pure hypercholesterolemia (ICD-10 - E78.00) 04/02/2024 Leukocytosis, unspecified type (ICD-10 - D72.829) Plan Of Treatment Next Appt Details Provider Name:Kody lopez, 10/09/2025 07:30:00 AM, [address] [place] [address], [phone], Provider Name:Kody lopez, 10/13/2025 03:00:00 PM, [address] [place] [address], [phone], Provider Name:Kody lopez, 04/09/2026 08:00:00 AM, [address] [place] [address], [phone], Provider Name:Kody lopez, 04/16/2026 02:30:00 PM, [address] [place] [address], [phone], Progress Notes * Ambrose MORIN PDOB:[birth year] (59 yo M)Acc No.[id number]:04/02/2024 Progress Note Patient: Ambrose VAZQUEZ Provider: Marsha Servin MD :1965 A ge:58 Y S ex:Male Date:04/02/2024 Address:[address] [place] [address] [id number] Subjective: * Chief Complaints: * 1 . Yearly fasting labs. * Medical History: Objective: * Vitals: Assessment: * Assessment: 1. B lood tests for routine general physical examination - Z00.00 (Primary) 2 .?Pure hypercholesterolemia - E78.00 3 . L eukocytosis, unspecified type - D72.829 Plan: * Treatment: ?LAB: UA ClnCatch+Micro w/rflx Cult (Collection Date & Time - 04/02/2024 07:15 AM)2.?Pure hypercholesterolemia?LAB: Complete Blood Count Auto Diff (Collection Date & Time - 04/02/2024 07:15 AM) ?LAB: Comprehensive [place]. Panel Fast (Collection Date & Time - 04/02/2024 07:15 AM) ?LAB: Lipid Panel (Collection Date & Time - 04/02/2024 07:15 AM) ?LAB: PSA,Total (Free>4and<10) (Collection Date & Time - 04/02/2024 07:15 AM)* must see in next month for p Kathi Woods 04/04/2024 08:28:01 AM Kathi Lam 04/11/2024 08:22:56 AM EST > PATIENT KEPT APPT ?LAB: UA ClnCatch+Micro w/rflx Cult (Collection Date & Time - 04/02/2024 07:15 AM)3.?Leukocytosis, unspecified type?LAB: Complete Blood Count Auto Diff (Collection Date & Time - 04/02/2024 07:15 AM) ?LAB: Comprehensive [place]. Panel Fast (Collection Date & Time - 04/02/2024 07:15 AM) ?LAB: Lipid Panel (Collection Date & Time - 04/02/2024 07:15 AM) ?LAB: PSA,Total (Free>4and<10) (Collection Date & Time - 04/02/2024 07:15 AM)* must see in next month for Kathi Yang 04/04/2024 08:28:01 AM Kathi Lam 04/11/2024 08:22:56 AM EST > PATIENT KEPT APPT ?LAB: UA ClnCatch+Micro w/rflx Cult (Collection Date & Time - 04/02/2024 07:15 AM) * Procedure Codes: 3 6415 VENIPUNCT, ROUTINE* * * The named appointment provid er may or may not be the originator of this progress note, and it is not deemed complete until electronically signed by the appointment provider. Sign off status: Pending * Provider: Marsha Servin MD Date: Generated for Priya potts/Ken/Jaiden on: 06/29/2024 12:28 PM EST
--- OUTSIDE RECORDS SUMMARY | 2024-04-09 10:15 | XMS_ITS ---
Author Organization Kody Servin MD Address [address] [place], [place] [id number] Care Team Providers Care Cad Technician Name Role Phone Gareth Kody Primary Care Provider [phone] Allergies No Known Allergies REASON FOR VISIT annual visit, CBACK HEMATURIA was having a kidney stone Medications Medication SIG (Take, Route, Frequency, Duration) Notes Start Date End Date Status Atorvastatin Calcium 40 MG TAKE 1 TABLET BY MOUTH EVERY DAY Active Aspirin 81 MG 1 tablet Orally Once a day for 30 day(s) Not-Taking Flonase 50 MCG/ACT 1 spray in each nost ril Nasally Once a day for 30 day(s) 10/15/2013 Not-Taking Immunizations Vaccine Route Administration Date Status Comme nts Fluarix Quadrivalent - 150 Unknown 04/09/2024 Refused Social History Tobacco Use: Social History Observation Description Date Details (start date - stop date) Never Smoker NA - NA Tobacco Use/Smoking Question Answer Notes Patient is a nonsmoker Additional Findings: Tobacco Non-User Cu rrent non-smoker, currently using no form of tobacco Alcohol Screen Question Answer Notes Did you have a drink containing alcohol in the p ast year? No Points 0 Interpretation Negative Problems Problem Type SNOMED Code ICD Code Onset Dates Problem Status W/U Status Risk Notes Problem [id number] Atherosclerosis of abdominal aorta (I70.0) Active confirmed Vital Signs Blood pressure systolic 110 mm Hg 04/09/20 24 Blood pressure diastolic 80 mm Hg 024 Height 70 in 04/09/2024 Weight 194 lbs 04/09/2024 BMI 27.83 kg/m2 04/09/2024 weight is down 6 pounds [facility] e 9 Encounters Encounter Location Date Provider Diagnosis Kody Servin MD [address] [place] [address] Drive [address] [place], [place] [phone] 04/09/2024 Kody Servin Pure hypercholestero lemia E78.00 ; Annual physical exam Z00.00 ; Atherosclerosis of abdominal aorta I70.0 and Depression screening Z13.31 Assessments Encounter Date Diagnosis (ICD Code) Assessment Notes Treatment Notes Treatment Clinical Notes Section Notes 04/09/2024 Pure hypercholesterolemia (ICD-10 - E78.00) will get closer to 75 04/09/2024 Annual physical exam (ICD-10 - Z00.00) labs reviewed and discussed with patient 04/09/2024 Atherosclerosis of abdominal aorta (ICD-10 - I70.0) increase atorvastin to 40, patient verbalized understanding of change in dose of medication 04/09/2024 Depression screening (ICD-10 - Z13.31) negative screen Plan Of Treatment Medication Medication Name Sig Start Date Stop Date Notes Atorvastatin Calcium 40 MG TAKE 1 TABLET BY MOUTH EVERY DAY Treatment Notes Assessment Notes Pure hypercholesterolemia will get close r to 75 Annual physical exam labs reviewed and d iscussed with patient Atherosclerosis of abdominal aorta incre ase atorvastin to 40, patient verbalized understanding of change in dose of medication Depression screening negative screen Next Appt Details Follow Up: 1 Year, Reason: Provider Name:Kody lopez, 10/09/2025 07:30:00 AM, [address] [place] [address], Suite [facility], [place], [place], [phone], Provider Name:Kody lopez, 10/13/2025 03:00:00 PM, [address] [place] [address], [address], [place], [place], [phone], Provider Name:Kody García ier, 04/09/2026 08:00:00 AM, [address], [address], [place], [phone], Provider Name:Kody García ier, 04/16/2026 02:30:00 PM, [address], [address], [place], [phone], Progress Notes * Ambrose MORIN PDOB:[birth year] (58 yo M)Acc No.[id number]:04/09/2024 Progress Notes Patient: Ambrose Jordan Provider: Marsha Servin MD :1965 A ge:58 Y S ex:Male Date:04/09/2024 Address:[address] [place] [address] Subjective: * Chief Complaints: * A nnual visitCBACK HEMATURIA was having a kidney stone * HPI: D epression Screening: PHQ-9 L ittle interest or pleasure in doing things N ot at all, F eeling down, depressed, or hopeless N ot at all, T rouble falling or staying asleep, or sleeping too much N ot at all, F eeling tired or having little energy N ot at all, P oor appetite or overeating N ot at all, F eeling bad about yourself or that you are a failure, or have let yourself or your family down N ot at all, T rouble concentrating on things, such as reading the newspaper or watching television N ot at all, M oving or speaking so slowly that other people could have noticed; or the opposite, being so fidgety or restless that you have been moving around a lot more than usual N ot at all, T houghts that you would be better off or of hurting yourself in some way N ot at all, T otal Score 0 . I nterpretation and Intervention D epression Screening Findings N egative, F ollow-Up for Depression : review of PHQ-9 found negative result, no follow-up needed. C ommunication Needs: Communication Needs D oes the patient have a hearing impairment N o, D oes the patient have a vision impairment? Y es, I f yes, what is the vision impairment? G lasses, D oes the patient have a cognition impairment? N o. S GUSTAVO Questions: SDOH Questions I n the past year have you been worried about losing housing? N o, I n the past year have you or any family members you live with been unable to get any of the following when it was really needed? Check all that apply: N one. S ymptom(s): patient is a 58 yo male here for annual visit with review of recent labs and follow up of chronic issues. had kidney stone and had ct scan. * ROS: G eneral/Constitutional: Change in appetite d enies. C hills d enies. F ever d enies. O phthalmologic: Blurred vision d enies. D ischarge d enies. P ain d enies. E NT: Decreased hearing d enies. S ore throat d enies.?Swollen glands d enies. E ndocrine: Cold intolerance d enies. E xcessive thirst d enies. H eat intolerance d enies. W eight loss d enies. R espiratory: Cough d enies. S hortness of breath at rest d enies. S hortness of breath with exertion d enies. W heezing d enies. C ardiovascular: Chest pain at rest d enies. C hest pain with exertion?denies. I rregular heartbeat d enies. S hortness of breath d enies. ? G astrointestinal: Abdominal pain d enies. C hange in bowel habits d enies. D iarrhea d enies. N ausea d enies. R ectal bleeding d enies. V omiting d enies . G enitourinary: Blood in urine d enies. D ifficulty urinating d enies. F requent urination d enies. M usculoskeletal: Painful joints d enies. W eakness d enies. ? S kin: Dry skin d enies. I tching d enies. D enies?Mole(s), changes in moles, new moles or any lesions of concern. D enies P hotosensitivity. R katrin d enies. N eurologic: Dizziness d enies. F ainting d enies. H eadache?denies. * Medical History: * Surgical History: * Hospitalization/Major Diagno stic Procedure: * Family History: F ather: 56 yrs, coronary artery disease. M other: 84 yrs. 4 brother(s) , 3 sister(s) . . had coronary disease, Denies mental health/substance abuse family history Mother, Denies mental health/substance abuse family history, Denies mental health/substance abuse family history. * Social History: T obacco Use: T obacco Use/Smoking P atient is a n onsmoker, A dditional Findings: Tobacco Non-User C urrent non-smoker, currently using no form of tobacco. D rugs/Alcohol: A lcohol Screen D id you have a drink containing alcohol in the past year? N o, P oints 0 , I nterpretation N egative. M iscellaneous: n o Caffeine. no Children. no Community involvements. Exercise: yes, 5 days a week push ups sit ups rowing machine. Home smoke detector use: yes. Housing: owning. Living with: significant other. Marital status: single. Occupation: works full-time. Pets: none. Travel outside of the [place]: yes, [place]. * Medications: T akingAtorvastatin Calcium 20 MG Tablet TAKE 1 TABLET BY MOUTH EVERY DAY Taking Atorvastatin Calcium 20 MG Tablet TAKE 1 TABLET BY MOUTH EVERY DAY Not-Taking/PRNAspirin 81 MG Tablet Chewable 1 tablet Orally Once a dayFlonase 50 MCG/ACT Suspension 1 spray in each nostril Nasally Once a dayNot-Taking/PRN Aspirin 81 MG Tablet Chewable 1 tablet Orally Once a dayNot-Taking/PRN Flonase 50 MCG/ACT Suspension 1 spray in each nostril Nasally Once a dayDiscontinuedDoxycycline Hyclate 100 MG Capsule 1 capsule Orally Twice a dayMedication List reviewed and reconciled with the patientDiscontinued Doxycycline Hyclate 100 MG Capsule 1 capsule Orally Twice a dayMedication List reviewed and reconciled with the patient * Allergies: N .K.D.A.yes[Allergies Verified] Objective: * Vitals: H t: 70, Wt:194, BMI:27.83, BP:110/80 weight is down 6 pounds since 02-06-24. * P ast Orders: L ab:Lipid Panel (Order Date - 04/02/2024) (Collection Date - 04/02/2024) Value Reference Range Triglycerides 157 H <150 - mg/dL Cholesterol 181 <200 - mg/dL LDL Cholesterol Calculated 106 H <100 - mg/dL HDL Cholesterol 44 >40 - mg/dL L ab:UA ClnCatch+Micro w/rflx Cult (Order Date - 04/02/2024) (Collection Date - 04/02/2024) Value Reference Range Color Urine Yellow - Appearance Urine Clear - PH 6.5 5.0-9.0 - Glucose Urine UA Negative Negative - mg/dL Urine Blood Negative Negative - Specific [place] - Urine 1.020 1.005-1.025 - Urine Protein Negative Neg-Trace - mg/dL Urine Ketones Negative Negative - mg/dL Nitrite Urine Negative Negative - Leukocyte Esterase Urine Negative Negative - RBC Urine 0-2 0-2 - /HPF WBC Urine 0-5 0-5 - /HPF Squamous Epithelial Cell Urine 0-2 0-2 - /HP F Bacteria Urine None Seen None Seen - Hyaline Casts Urine 0-2 0-2 - /LPF L ab:Complete Blood Count Auto Diff (Order Date - 04/02/2024) (Collection Date - 04/02/2024) Value Reference Range White Blood Count 11.5 H 4.8-10.8 - X10*3/uL Red Blood Count 5.30 4.60-5.80 - X10*6/uL Hemoglobin 15.9 14.0-18.0 - g/dl Hematocrit 47.0 42.0-52.0 - % Mean Corpuscular Volume 88.7 80.0-98.0 - fL Mean Corpuscular Hemoglobin 30.0 27.0-33.0 - pg Mean Corpuscular HGB Conc 33.8 31.0-36.0 - g/ dl Red Cell Distribution Width 13.1 11.0-16.0 - % Platelet Count 334 160-400 - X10*3/uL Mean Platelet Volume 10.3 9.4-12.4 - fL Neutrophils Percent Auto 67.6 45-73 - % Imm Gran Pct Auto 0.6 H 0.0-0.4 - % Lymphocytes Percent Auto 19.3 L 20-40 - % Monocytes Percent Auto 8.7 2-11 - % Eosinophils Percent Auto 3.2 0-4 - % Basophils Percent Auto 0.6 0-2 - % NRBC Pct Auto 0.0 0.0-0.2 - /100WBC Neutrophils Absolute Auto 7.8 2.0-8.3 - x10* 3/uL Imm Gran Abs Auto 0.07 H 0.00-0.03 - X10*3/uL Lymphocytes Absolute Auto 2.2 1.2-4.9 - X10* 3/uL Monocytes Absolute Auto 1.0 0.1-1.2 - X10*3/ uL Eosinophils Absolute Auto 0.4 0.0-0.4 - X10* 3/uL Basophils Absolute Auto 0.1 0.0-0.2 - X10*3/ uL NRBC Abs Auto 0.000 0.0-0.012 - X10*3/uL L ab:Comprehensive [place]. Panel Fast (Order Date - 04/02/2024) (Collection Date - 04/02/2024) Value Reference Range Sodium 145 135-145 - mmol/L Bilirubin Total 0.6 0.0-1.0 - mg/dL Aspartate Amino Transferase 23 5-37 - U/L Alanine Aminotransferase 23 0-40 - U/L Total Protein 7.7 6.5-8.0 - g/dL Albumin Level 4.4 3.5-5.0 - g/dL Alkaline Phosphatase 65 39-117 - U/L Potassium 4.2 3.3-5.1 - mmol/L Chloride 105 96-108 - mmol/L Carbon Dioxide 27 22-29 - mmol/L Anion Gap 17 12-20 - Blood Urea Nitrogen 19 H 9-16 - mg/dL Creatinine 0.91 0.5-1.4 - mg/dL Estimated Glomerular Filt Rate > 60 - Glucose Fasting 85 60-99 - mg/dL Calcium 9.8 8.4-10.2 - mg/dL * Examination: G eneral Examination: GENERAL APPEARANCE: w ell developed, well nourished, in no acute distress. HEAD: n ormocephalic, atraumatic. EYES: p upils equal, round, reactive to light and accommodation, sclera non-icteric. EARS: n ormal. ORAL CAVITY: m ucosa moist. THROAT: c lear. NECK/THYROID: n demi supple, full range of motion, no cervical lymphadenopathy, no bruits. SKIN: w arm and dry, no suspicious lesions. HEART: r egular rate and rhythm, S1, S2 normal, no murmurs.? LUNGS: c lear to auscultation bilaterally. ABDOMEN: s oft, nontender, nondistended, bowel sounds present, normal, no organomegaly , no masses palpable. RECTAL EXAM: d eclined. MALE GENITOURINARY: d eclined. EXTREMITIES: n o clubbing, cyanosis, or edema. NEUROLOGIC: n onfocal, motor strength normal upper and lower extremities, sensory exam intact. Assessment: * Assessment: 1. A nnual physical exam - Z00.00 (Primary) 2 . P ure hypercholesterolemia - E78.00?3. A therosclerosis of abdominal aorta - I70.0 4 . D epression screening - Z13.31 Plan: * Treatment: 2. P ure hypercholesterolemia Notes: will get closer to 75 3. A therosclerosis of abdominal aorta Continue Atorvastatin Calcium Tablet, 40 MG, TAKE 1 TABLET BY MOUTH EVERY DAY. L AB: Liver Panel (Ordered for 07/10/2024) L AB: Lipid Panel (Ordered for 07/10/2024) Notes: increase atorvastin to 40, patient verbalized understanding of change in dose of medication? 4. D epression screening Notes: negative screen * Immunizations: Fluarix Quadrivalent - 150 (Not administered - Refused: Patient decision) * Procedure Codes: * Preventive Medicine: Counseling: C are goal follow-up plan: Beatriz linnseling for abnormal BMI provided?Yes, Familia muñoz Normal BMI Follow-up Marsha hernandez encouragement to exercise. Immunizations: I nfluenza H ave you had a flu shot since the most recent February 03? N o patient refused at visit today. * Follow Up: 1 Year * * Sign off status: Completed true * Provider: Marsha Servin MD Date: 06/09/2023 Generated for Priya potts/Ken/Adonayitting on: 06/29/2024 12:29 PM EST History and Physical Notes * HPI (History of Present Illness) Category Sub-Category Detail Notes Category Not es Symptom(s) patient is a 58 yo male here for annual visit with review of recent labs and follow up of chronic issues. had kidney stone and had ct scan Depression Screening PHQ-9 Little inte rest or pleasure in doing things: Not at all Feeling down, depressed, or hopeless: No t at all Trouble falling or staying asleep, or sl eeping too much: Not at all Feeling tired or having little energy: N ot at all Poor appetite or overeating: Not at all Feeling bad about yourself o r that you are a failure, or have let yourself or your family down: Not at all Trouble concentrating on thi ngs, such as reading the newspaper or watching television: Not at all Moving or speaking so slowly that other people could have noticed; or the opposite, being so fidgety or restless that you have been moving around a lot more than usual: Not at all Thoughts that you would be b louisa off or of hurting yourself in some way: Not at all Total Score: 0 Interpretation and Intervention Depression Davide oliveros Findings: Negative Follow-Up for Depression: : review of PH Q-9 found negative result, no follow-up needed SDOH Questions SDOH Questions In the past year have you been worried about losing housing?: No In the past year have you or any family members you live with been unable to get any of the following when it was really needed? Check all that apply:: None Communication Needs Communication Needs Does the patient have a hearing impairment: No Does the patient have a vision impairmen t?: Yes If yes, what is the vision impairment?: Glasses Does the patient have a cognition impair ment?: No Examination Category Sub-Category Detail Notes Category Not es General Examination GENERAL APPEARANCE: well dev eloped, well nourished, in no acute distress HEAD: normocephalic, atrau matic EYES: pupils equal, round, reactive to light and accommodation, sclera non-icteric EARS: normal THROAT: clear NECK/THYROID: neck supple, full ra nge of motion, no cervical lymphadenopathy, no bruits HEART: regular rate and rhy thm, S1, S2 normal, no murmurs LUNGS: clear to auscultatio n bilaterally ABDOMEN: soft, nontender, non distended, bowel sounds present, normal, no organomegaly , no masses palpable NEUROLOGIC: nonfocal, motor stre ngth normal upper and lower extremities, sensory exam intact SKIN: warm and dry, no sari picious lesions EXTREMITIES: no clubbing, cyanosi s, or edema MALE GENITOURINARY: declined RECTAL EXAM: declined ORAL CAVITY: mucosa moist
--- OUTSIDE RECORDS SUMMARY | 2024-07-11 02:30 | XMS_ITS ---
Author Organization Kody Servin MD Address [address] [place], [place] [phone] Care Team Providers Care Manager Property Name Role Phone Gareth Kody Primary Care Provider REASON FOR VISIT fasting liver lipids Encounters Encounter Location Date Provider Diagnosis Kody Servin MD [address] [place] [phone] 07/11/2024 Kody Servin Pure hypercholestero lemia E78.00 and Atherosclerosis of abdominal aorta I70.0 Assessments Encounter Date Diagnosis (ICD Code) Assessment Notes Treatment Notes Treatment Clinical Notes Section Notes 07/11/2024 Pure hypercholesterolemia (ICD-10 - E78.00) 07/11/2024 Atherosclerosis of abdominal aorta (ICD-10 - I70.0) Plan Of Treatment Next Appt Details Provider Name:Kody lopez, 10/09/2025 07:30:00 AM, [address], Suite [facility], [place], [place], [phone], Provider Name:Kody García ier, 10/13/2025 03:00:00 PM, [address], [address], [place], [phone], Provider Name:Kody García ier, 04/09/2026 08:00:00 AM, [address], [address], [place], [phone], Provider Name:Kody García ier, 04/16/2026 02:30:00 PM, [address], [address], [place], [phone], Progress Notes * Ambrose MORIN PDOB:[birth year] (59 yo M)Acc No.[id number]:07/11/2024 Progress Note Patient: Ambrose VAZQUEZ Provider: Marsha Servin MD :1965 A ge:59 Y S ex:Male Date:07/11/2024 Address:[address] [place] [address] [place] Subjective: * Chief Complaints: * 1 . [...] 0 07/11/2024 Generated for Priya potts/Ken/Wilfredosmitting on: 06/29/2024 12:27 PM EST
--- OUTSIDE RECORDS SUMMARY | 2024-08-02 08:57 | XMS_ITS ---
Author Organization Kody Servin MD Address [address] [place] [phone] Care Team Providers Care Salesperson Shoes Name Role Phone GarethNuryn Primary Care Provider REASON FOR VISIT ins referral Encounters Encounter Location Date Provider Diagnosis Kody Servin MD [address] [facility] [address] [place] [phone] 08/02/2024 Kody Servin Plan Of Treatment Next Appt Details Provider Name:Kody lopez, 10/09/2025 07:30:00 AM, [address] [place] [address], Suite [facility], [place], [place], [phone], Provider Name:Kody lopez, 10/13/2025 03:00:00 PM, [address] [place] [address], Suite [facility], [place], [place], [phone], Provider Name:Kody lopez, 04/09/2026 08:00:00 AM, [address], [address], [place], [place], [phone], Provider Name:Kody lopez, 04/16/2026 02:30:00 PM, [address], [address], [place], [phone], Progress Notes * Ambrose MORIN PDOB:[birth year] (59 yo M)Acc No.[id number]:08/02/2024 Patient: Ambrose VAZQUEZ :1965 A ge:59 Y S ex:Male Address:[address] [place] [address] [place], [address] * true * Date: Generated for Priya potts/Ken/eTransmitting on: 06/29/2024 12:29 PM EST
--- OUTSIDE RECORDS SUMMARY | 2025-03-28 05:10 | XMS_ITS ---
Author Organization Kody Servin MD Address [address] [place] [phone] Care Team Providers Care Scrap Crusher Name Role Phone MayaKody mccullough Primary Care Provider REASON FOR VISIT RF Atorvastatin Medications Medication SIG (Take, Route, Frequency, Duration) Notes Start Date End Date Status Atorvastatin Calcium 40 MG TAKE 1 TABLET BY MOUTH EVERY DAY Orally Once a day for 90 days Active Encounters Encounter Location Date Provider Diagnosis Kody Servin MD [address] [place] [phone] 03/28/2025 Kody Servin Atherosclerosis of abdominal aorta [...] Details Provider Name:Kody lopez, 10/09/2025 07:30:00 AM, [address] [place] [address], [address], [place], [place], [phone], Provider Name:Kody García jessica, 10/13/2025 03:00:00 PM, [address] [place] [address], Suite [facility], [place], [place], [phone], Provider Name:Kody García inesr, 04/09/2026 08:00:00 AM, [address] [place] [address], Suite [facility], [place], [place], [phone], Provider Name:Kody García inesr, 04/16/2026 02:30:00 PM, [address] [place] [address], Suite [facility], [place], [place], [phone], Progress Notes * Ambrose MORIN PDOB:[birth year] (59 yo M)Acc No.[id number]:03/28/2025 Patient: Susanna Ambrose LEOS :1965 A ge:59 Y S ex:Male Address:[address] [place] [address] [place], [address] * Refills Refill Atorvastatin Calcium Tablet, 40 MG, Orally, 90, TAKE 1 TABLET BY MOUTH EVERY DAY, Once a day, 90 days, Refills=3 * true * Date: Generated for Priya potts/Ken/Adonayitting on: 06/29/2024 12:28 PM EST
--- OUTSIDE RECORDS SUMMARY | 2025-04-04 02:15 | XMS_ITS ---
Author Organization Kody Servin MD Address [address] [place], [place] [phone] Care Team Providers Care Painter Drum Name Role Phone GarethNuryn Primary Care Provider [phone] Results Component Value Reference Range Notes Complete Blood Count Auto Di ff Reviewed date:04/04/2025 12:28:04 PM Interpretation: Performing Lab:[facility], [address] [place] [phone] Notes/Report: White Blood Count 8.1 4.8-10.8 X10*3/uL Red Blood Count 5.64 4.60-5.80 X10*6/uL Hemoglobin 16.3 14.0-18.0 g/dl Hematocrit 49.5 42.0-52.0 % Mean Corpuscular Volume 87.8 80.0-98.0 fL Mean Corpuscular Hemoglobin 28.9 27.0-33.0 pg Mean Corpuscular HGB Conc 32.9 31.0-36.0 g/dl Red Cell Distribution Width 12.7 11.0-16.0 % Platelet Count 282 160-400 X10*3/uL Mean Platelet Volume 10.1 9.4-12.4 fL Neutrophils Percent Auto 55.7 45-73 % Imm Gran Pct Auto 0.2 0.0-0.4 % Lymphocytes Percent Auto 30.1 20-40 % Monocytes Percent Auto 9.2 2-11 % Eosinophils Percent Auto 4.1 0-4 % Basophils Percent Auto 0.7 0-2 % NRBC Pct Auto 0.0 0.0-0.2 /100WBC Neutrophils Absolute Auto 4.5 2.0-8.3 x10*3/u L Imm Gran Abs Auto 0.02 0.00-0.03 X10*3/uL Lymphocytes Absolute Auto 2.4 1.2-4.9 X10*3/u L Monocytes Absolute Auto 0.7 0.1-1.2 X10*3/uL Eosinophils Absolute Auto 0.3 0.0-0.4 X10*3/u L Basophils Absolute Auto 0.1 0.0-0.2 X10*3/uL NRBC Abs Auto 0.000 0.0-0.012 X10*3/uL Comprehensive [place]. Panel Fa st Reviewed date:04/04/2025 12:32:25 PM Interpretation: Performing Lab:[facility], [address] [place] [phone] Notes/Report: Sodium 142 135-145 mmol/L Potassium 4.0 3.3-5.1 mmol/L Chloride 110 96-108 mmol/L Carbon Dioxide 26 22-29 mmol/L Anion Gap 10 12-20 Blood Urea Nitrogen 22 9-16 mg/dL Creatinine 0.95 0.5-1.4 mg/dL Estimated Glomerular Filt Rate > 60 Chronic Kidney Disease: Estimated GFR < 60 mL/min/1.73m2 Severe Kidney Disease: Estimated GFR < 15 mL/min/1.73m2 Glucose Fasting 92 60-99 mg/dL Calcium 9.5 8.4-10.2 mg/dL Bilirubin Total 0.6 0.0-1.0 mg/dL Aspartate Amino Transferase 29 5-37 U/L Alanine Aminotransferase 35 0-40 U/L Total Protein 7.5 6.5-8.0 g/dL Albumin Level 4.8 3.5-5.0 g/dL Alkaline Phosphatase 57 39-117 U/L Lipid Panel Reviewed date:04/04/2025 12:28:13 PM Interpretation: Performing Lab:[address] [phone] Notes/Report: Triglycerides 152 <150 mg/dL Desirable Triglyceride: less than 150 mg/dL Borderline High Triglyceride 150-199 mg/dL High Triglyceride: 200-499 mg/dL Very High Triglyceride: greater than or equal to 5OO mg/dL Cholesterol 193 <200 mg/dL Desirable Cholesterol: less than 200 mg/dL Borderline High Cholesterol: 200-239 mg/dL High Cholesterol: greater than 239 mg/dL LDL Cholesterol Calculated 120 <100 mg/dL Desirable LDL: less than 100 mg/dL Near Optimal/Above Optimal LDL: 110-129 mg/dL Borderline High LDL: 130-159 mg/dL High LDL: 160-189 mg/dL Very High LDL: greater than or equal to 190 mg/dL HDL Cholesterol 43 >40 mg/dL Desirable HDL: greater than 40 mg/dL Note: This HDL assay may give artificially low results in patients with liver disease. PSA,Total (Free>4and<10) Reviewed date:04/04/2025 12:21:15 PM Interpretation: Performing Lab:[address] [phone] Notes/Report: PSA,Total (Free>4and<10) 1.76 0.00-4.00 ng/mL A Free PSA was not [...] (CMIA) UA ClnCatch+Micro w/rflx Cul t Reviewed date:04/04/2025 12:28:30 PM Interpretation: Performing Lab:[address] [phone] Notes/Report: Urine, Clean Catch Color Urine Yellow Appearance Urine Clear PH 5.5 5.0-9.0 Glucose Urine UA Negative Negative mg/dL Urine Blood Trace Negative Specific [place] - Urine 1.025 1.005-1.025 Urine Protein Negative Neg-Trace mg/dL Urine Ketones Negative Negative mg/dL Nitrite Urine Negative Negative Leukocyte Esterase Urine Negative Negative RBC Urine 0-2 0-2 /HPF WBC Urine 0-5 0-5 /HPF Squamous Epithelial Cell Urine 0-2 0-2 /HPF Bacteria Urine None Seen None Seen Hyaline Casts Urine 0-2 0-2 /LPF REASON FOR VISIT yearly fasting labs Immunizations Vaccine Route Administration Date Status Comme nts Fluarix Quadrivalent - 150 IM Intramuscular 04/04/2025 Adm inistered Encounters Encounter Location Date Provider Diagnosis Kody Servin MD [address] [place] [phone] 04/04/2025 Kody Servin Blood tests for rout ine general physical examination Z00.00 ; Encounter for administration of vaccine Z23 ; Pure hypercholesterolemia E78.00 and Leukocytosis, unspecified type D72.829 Assessments Encounter Date Diagnosis (ICD Code) Assessment Notes Treatment Notes Treatment Clinical Notes Section Notes 04/04/2025 Blood tests for rout ine general physical examination (ICD-10 - Z00.00) 04/04/2025 Encounter for administration of vaccine (ICD-10 - Z23) 04/04/2025 Pure hypercholesterolemia (ICD-10 - E78.00) 04/04/2025 Leukocytosis, unspecified type (ICD-10 - D72.829) Plan Of Treatment Next Appt Details Provider Name:Kody lopez, 10/09/2025 07:30:00 AM, [address] [place] [address], [address], [phone], Provider Name:Kody lopez, 10/13/2025 03:00:00 PM, [address] [place] [address], [address], [phone], Provider Name:Kody lopez, 04/09/2026 08:00:00 AM, [address] [place] [address], [address], [phone], Provider Name:Kody García ier, 04/16/2026 02:30:00 PM, [address], [address], [place], [place], [phone], Progress Notes * Ambrose MORIN PDOB:[birth year] (59 yo M)Acc No.[id number]:04/04/2025 Progress Note Patient: Ambrose VAZQUEZ Provider: Marsha Servin MD :1965 A ge:59 Y S ex:Male Date:04/04/2025 Address:[address] [place], [place] [phone] Subjective: * Chief Complaints: * 1 . Yearly fasting labs. * Medical History: Objective: * Vitals: Assessment: * Assessment: 1. E ncounter for administration of vaccine - Z23 (Primary) 2 . B lood tests for routine general physical examination - Z00.00 3 . P ure hypercholesterolemia - E78.00 4 . L eukocytosis, unspecified type - D72.829 Plan: * Treatment: 2. P ure hypercholesterolemia L AB: Complete Blood Count Auto Diff (Collection Date & Time - 04/04/2025 10:24 AM) L AB: Comprehensive [place]. Panel Fast (Collection Date & Time - 04/04/2025 10:24 AM) L AB: Lipid Panel (Collection Date & Time - 04/04/2025 10:24 AM) L AB: PSA,Total (Free>4and<10) (Collection Date & Time - 04/04/2025 10:24 AM) L AB: UA ClnCatch+Micro w/rflx Cult (Collection Date & Time - 04/04/2025 10:24 AM) 3. L eukocytosis, unspecified type L AB: Complete Blood Count Auto Diff (Collection Date & Time - 04/04/2025 10:24 AM) L AB: Comprehensive [place]. Panel Fast (Collection Date & Time - 04/04/2025 10:24 AM) L AB: Lipid Panel (Collection Date & Time - 04/04/2025 10:24 AM) L AB: PSA,Total (Free>4and<10) (Collection Date & Time - 04/04/2025 10:24 AM) L AB: UA ClnCatch+Micro w/rflx Cult (Collection Date & Time - 04/04/2025 10:24 AM) * Immunizations: Fluarix Quadrivalent - 150 : 0.5 mL (Dose No:1) (Route: Intramuscular) given by Phylicia Recio , Office Staff on Left Deltoid * Procedure Codes: 3 6415 [address], ROUTINE*, 87700 FLU VACCINE NO PRESERV 3 & >, [address] IMMUNIZATION ADMIN * * The named appointment provid er may or may not be the originator of this progress note, and it is not deemed complete until electronically signed by the appointment provider. Sign off status: Pending * Provider: Marsha Servin MD Date: Generated for Priya potts/Ken/Adonayitting on: 06/29/2024 12:28 PM EST
--- OUTSIDE RECORDS SUMMARY | 2025-04-11 09:30 | XMS_ITS ---
Author Organization Kody Servin MD Address [address] [place], [place] [id number] Care Team Providers Care Prison Guard Supervisor Name Role Phone Gareth Kody Primary Care Provider Allergies Allergen (clinical drug ingredient) Drug/Non Drug Allergy documented on EMR Reaction Allergy Type Onset Date Status amoxicillin Amoxicillin itchy hands and feet Drug Allergy Active REASON FOR VISIT annual visit Medications Medication SIG (Take, Route, Frequency, Duration) Notes Start Date End Date Status Flonase 50 MCG/ACT 1 spray in each nost ril Nasally Once a day for 30 day(s) 10/15/2013 Not-Taking Atorvastatin Calcium 40 MG TAKE 1 TABLET BY MOUTH EVERY DAY Orally Once a day Active Social History Tobacco Use: Social History Observation [...] ast year? No Points 0 Interpretation Negative Vital Signs Blood pressure systolic 104 mm Hg 04/11/20 25 Blood pressure diastolic 70 mm Hg 025 Height 70 in 04/11/2025 Weight 199 lbs 04/11/2025 BMI 28.55 kg/m2 04/11/2025 weight is up 5 pounds since 04-09-24 Encounters Encounter Location Date Provider Diagnosis Kody Servin MD [address] [place], [place] [phone] 04/11/2025 Kody Servin Adult general medica l examination Z00.00 ; Pure hypercholesterolemia E78.00 ; Elevated BUN R79.9 ; Colon cancer screening Z12.11 and Depression screen Z13.31 Assessments Encounter Date Diagnosis (ICD Code) Assessment Notes Treatment Notes Treatment Clinical Notes Section Notes 04/11/2025 Adult general medica l examination (ICD-10 - Z00.00) Labs reviewed and discussed with patient 04/11/2025 Pure hypercholesterolemia (ICD-10 - E78.00) pending future labs, will continue current regiment 04/11/2025 Elevated BUN (ICD-10 - R79.9) will continue to monitor, pending future labs 04/11/2025 Colon cancer screeni ng (ICD-10 - Z12.11) no stool, sent home with cards will return to office 04/11/2025 Depression screen (ICD-10 - Z13.31) negative screen Plan Of Treatment Medication Medication Name Sig Start Date Stop Date Notes Atorvastatin Calcium 40 MG TAKE 1 TABLET BY MOUTH EVERY DAY Orally Once a day Treatment Notes Assessment Notes Adult general medical examination Labs r eviewed and discussed with patient Pure hypercholesterolemia pending future labs, will continue current regiment Elevated BUN will continue to mon itor, pending future labs Colon cancer screening no stool, sent ho fl with cards will return to office Depression screen negative screen Future Test Test Name Order Date Liver Panel 10/09/2025 Blood Urea Nitrogen 10/09/2025 Creatinine 10/09/2025 Lipid Panel 10/09/2025 Next Appt Details Follow Up: 6 Months, Reason: Provider Name:Kody lopez, 10/09/2025 07:30:00 AM, [address], [address], [place], [place], [phone], Provider Name:Kody lopez, 10/13/2025 03:00:00 PM, [address], [address], [place], [place], [phone], Provider Name:Kody García jessica, 04/09/2026 08:00:00 AM, [address], [address], [place], [id number], Provider Name:Kody García inesr, 04/16/2026 02:30:00 PM, [address], [address], [place], [phone], Progress Notes * Ambrose MORIN PDOB:[birth year] (59 yo M)Acc No.[id number]:04/11/2025 Progress Notes Patient: Ambrose VAZQUEZ Provider: Marsha Servin MD :1965 A ge:59 Y S ex:Male Date:04/11/2025 Address:[address] [place] [address] [place], [id number] Subjective: * Chief Complaints: * 1 . Annual visit. * HPI: D epression Screening: PHQ-9 L [...] patient have a cognition impairment? N o. F all Risk: History H ave you had any falls with injury in the past year? N o, H ave you had two or more falls in the past year? N o. S GUSTAVO Questions: SDOH Questions I n the past year have you been worried about losing housing? N o, I n the past year have you or any family members you live with been unable to get any of the following when it was really needed? Check all that apply: N one. S ymptom(s): patientis a 59 yo male here for annual visit with review of recent labs and dollow up of chronic issues. * ROS: G eneral/Constitutional: Change in appetite [...] d enies. H eadache?denies. * Medical History: B ack pain., Cysto 2011 neg, pteryigium operated by Dr Silveira [facility], Colonoscopy done 07/26/17 Dr Eng,repeat 10 years. * Family History: F ather: 56 yrs, [...] , I nterpretation N egative. M iscellaneous: C affeine: no. Children: no. Community involvements: no. Exercise: yes, 5 days a week push ups sit ups rowing machine. Home smoke detector use: yes. Housing: owning. Living with: significant other. Marital status: single. Occupation: works full- time. Pets: none. * Medications: T aking Atorvastatin Calcium 40 MG Tablet TAKE 1 TABLET BY MOUTH EVERY DAY Orally Once a day , Not-Taking/PRN Flonase 50 MCG/ACT Suspension 1 spray in each nostril Nasally Once a day , Medication List reviewed and reconciled with the patient * Allergies: A moxicillin: itchy hands and feet. Objective: * Vitals: H t: 70, Wt: 199, BMI:28.55, BP:104/70, Wt-k.27. weight is up 5 pounds since 11-5-24. * P ast Orders: L ab:UA ClnCatch+Micro w/rflx Cult (Order Date - 04/04/2025) (Collection Date & Time - 04/04/2025 10:24 AM) Value Reference Range Color Urine Yellow - Appearance Urine Clear - PH 5.5 5.0-9.0 - Glucose Urine UA Negative Negative - mg/dL Urine Blood Trace A Negative - Specific [place] - Urine 1.025 1.005-1.025 - Urine Protein Negative Neg-Trace - [...] Blood Count Auto Diff (Order Date - 04/04/2025) (Collection Date & Time - 04/04/2025 10:24 AM) Value Reference Range White Blood Count 8.1 4.8-10.8 - X10*3/uL Red Blood Count 5.64 4.60-5.80 - X10*6/uL Hemoglobin 16.3 14.0-18.0 - g/dl Hematocrit 49.5 42.0-52.0 - % Mean Corpuscular Volume 87.8 80.0-98.0 - fL Mean Corpuscular Hemoglobin 28.9 27.0-33.0 - pg Mean Corpuscular HGB Conc 32.9 31.0-36.0 - g/ dl Red Cell Distribution Width 12.7 11.0-16.0 - % Platelet Count 282 160-400 - X10*3/uL Mean Platelet Volume 10.1 9.4-12.4 - fL Neutrophils Percent Auto 55.7 45-73 - % Imm Gran Pct Auto 0.2 0.0-0.4 - % Lymphocytes Percent Auto 30.1 20-40 - % Monocytes Percent Auto 9.2 2-11 - % Eosinophils Percent Auto 4.1 H 0-4 - % Basophils Percent Auto 0.7 0-2 - % NRBC Pct Auto 0.0 0.0-0.2 - /100WBC Neutrophils Absolute Auto 4.5 2.0-8.3 - x10* 3/uL Imm Gran Abs Auto 0.02 0.00-0.03 - X10*3/uL Lymphocytes Absolute Auto 2.4 1.2-4.9 - X10* 3/uL Monocytes Absolute Auto 0.7 0.1-1.2 - X10*3/ uL Eosinophils Absolute Auto 0.3 0.0-0.4 - X10* 3/uL Basophils Absolute Auto 0.1 0.0-0.2 - X10*3/ uL NRBC Abs Auto 0.000 0.0-0.012 - X10*3/uL L ab:Comprehensive [place]. Panel Fast (Order Date - 04/04/2025) (Collection Date & Time - 04/04/2025 10:24 AM) Value Reference Range Sodium 142 135-145 - mmol/L Bilirubin Total 0.6 0.0-1.0 - mg/dL Aspartate Amino Transferase 29 5-37 - U/L Alanine Aminotransferase 35 0-40 - U/L Total Protein 7.5 6.5-8.0 - g/dL Albumin Level 4.8 3.5-5.0 - g/dL Alkaline Phosphatase 57 39-117 - U/L Potassium 4.0 3.3-5.1 - mmol/L Chloride 110 H 96-108 - mmol/L Carbon Dioxide 26 22-29 - mmol/L Anion Gap 10 L 12-20 - Blood Urea Nitrogen 22 H 9-16 - mg/dL Creatinine 0.95 0.5-1.4 - mg/dL Estimated Glomerular Filt Rate > 60 - Glucose Fasting 92 60-99 - mg/dL Calcium 9.5 8.4-10.2 - mg/dL L ab:Lipid Panel (Order Date - 04/04/2025) (Collection Date & Time - 04/04/2025 10:24 AM) Value Reference Range Triglycerides 152 H <150 - mg/dL Cholesterol 193 <200 - mg/dL LDL Cholesterol Calculated 120 H <100 - mg/dL HDL Cholesterol 43 >40 - mg/dL L ab:PSA,Total (Free>4and<10) (Order Date - 04/04/2025) (Collection Date & Time - 04/04/2025 10:24 AM) Value Reference Range PSA,Total (Free>4and<10) 1.76 0.00-4.00 - ng/ mL * Examination: G eneral Examination: GENERAL APPEARANCE: [...] organomegaly , no masses palpable. RECTAL EXAM: n ormal tone, no external hemorrhoids, no masses palpable, prostate normal, no stool. won't send cards. MALE GENITOURINARY: c ircumcised, no testicular mass, testes descended bilaterally. EXTREMITIES: n o clubbing, cyanosis, or edema. NEUROLOGIC: n onfocal, motor strength normal upper and lower extremities, sensory exam intact. Assessment: * Assessment: 1. A dult general medical examination - Z00.00 (Primary) 2 . P ure hypercholesterolemia - E78.00 3 . E levated BUN - R79.9 4 . C olon cancer screening - Z12.11 5 . D epression screen - Z13.31 Plan: * Treatment: 2. P ure hypercholesterolemia Continue Atorvastatin Calcium Tablet, 40 MG, TAKE 1 TABLET BY MOUTH EVERY DAY, Orally, Once a day.? L AB: Liver Panel (Ordered for 10/09/2025) L AB: Lipid Panel (Ordered for 10/09/2025) Notes: pending future labs, will continue current regiment 3. E levated BUN L AB: Blood Urea Nitrogen (Ordered for 10/09/2025) L AB: Creatinine (Ordered for 10/09/2025) Notes: will continue to monitor, pending future labs 4. C olon cancer screening Notes: no stool, sent home with cards will return to office 5. D epression screen Notes: negative screen * Follow Up: 6 Months * * The named appointment provid er may or may not be the originator of this progress note, and it is not deemed complete until electronically signed by the appointment provider. Sign off status: Pending * Provider: Marsha Servin MD Date: 06/11/2024 Generated for Priya Urias/Jaiden on: 06/29/2024 12:27 PM EST History and Physical Notes * HPI (History of Present Illness) Category Sub-Category Detail Notes Category Not es Symptom(s) patientis a 59 yo male here for annual visit with review of recent labs and dollow up of chronic issues Depression Screening PHQ-9 Little inte rest or [...] really needed? Check all that apply:: None Fall Risk History Have you had any falls with injury i n the past year?: No Have you had two or more falls in the st year?: No Communication Needs Communication Needs Does the patient [...] clubbing, cyanosi s, or edema MALE GENITOURINARY: circumcised, no test icular mass, testes descended bilaterally RECTAL EXAM: normal tone, no exte rnal hemorrhoids, no masses palpable, prostate normal, no stool. won't send cards ORAL CAVITY: mucosa moist
--- NOTE | ~2025-04-29 | US_ITS ---
CLINICAL HISTORY: N20.0 - Calculus of kidney US kidneys Comparison: 08/26/2024 Findings: Right kidney normal size and echotexture, 10.1 cm length. No hydronephrosis. Normal color flow. Left kidney normal size and echotexture, 11.2 cm length. No hydronephrosis. Normal color flow. A small lower pole cyst measuring up to 9 mm appears grossly stable (previously measuring up to 11 mm). Impression: 1. Similar small left renal cyst. Otherwise, unremarkable kidneys This document has been electronically signed by: Curtis Perez MD on 04/29/2025 17:13:00
--- OUTSIDE RECORDS SUMMARY | 2025-04-29 12:28 | XMS_ITS | Patient Health Record ---
Author Organization Kody Servin MD Address [address] [place] [phone] Care Team Providers Care Unit Control Worker Name Role Phone Gareth Kody Primary Care Provider Allergies Allergen (clinical drug ingredient) Drug/Non Drug Allergy documented on EMR Reaction Allergy Type Onset Date Status amoxicillin Amoxicillin itchy hands and feet Drug Allergy Active Results Component Value Reference Range Notes Complete Blood Count Auto Di ff Reviewed date:04/04/2025 12:28:04 PM Interpretation: Performing Lab:[facility], [address] [place] [phone] Notes/Report: White Blood Count 8.1 4.8-10.8 X10*3/uL [...] NRBC Abs Auto 0.000 0.0-0.012 X10*3/uL Comprehensive [place]. Panel Fa st Reviewed date:04/04/2025 12:32:25 PM Interpretation: Performing Lab:[facility], [address] [place] [phone] Notes/Report: Sodium 142 135-145 mmol/L Potassium 4.0 [...] Panel Reviewed date:04/04/2025 12:28:13 PM Interpretation: Performing Lab:[facility], [address] [place] [phone] Notes/Report: Triglycerides 152 <150 mg/dL Desirable Triglyceride: [...] (Free>4and<10) Reviewed date:04/04/2025 12:21:15 PM Interpretation: Performing Lab:[facility], [address] [place] [phone] Notes/Report: PSA,Total (Free>4and<10) 1.76 0.00-4.00 ng/mL A [...] t Reviewed date:04/04/2025 12:28:30 PM Interpretation: Performing Lab:[facility], [address] [place] [phone] Notes/Report: Urine, Clean Catch Color Urine Yellow Appearance Urine Clear PH 5.5 5.0-9.0 Glucose Urine UA Negative Negative mg/dL Urine Blood Trace Negative Specific [place] - Urine 1.025 1.005-1.025 Urine Protein Negative Neg-Trace mg/dL Urine Ketones Negative Negative mg/dL Nitrite Urine Negative Negative Leukocyte Esterase Urine Negative Negative RBC Urine 0-2 0-2 /HPF WBC Urine 0-5 0-5 /HPF Squamous Epithelial Cell Urine 0-2 0-2 /HPF Bacteria Urine None Seen None Seen Hyaline Casts Urine 0-2 0-2 /LPF US renal BI Reviewed date:08/27/2024 08:05:15 PM Interpretation: Performing Lab: Notes/Report: [facility] [address] [place] [address] [place] [address] Ultrasound Report Signed Patient: Ambrose Ward MR#: [id number] : 1965 Acct:[id number] Age/Sex: 59 / M ADM Date: 08/26/24 Loc: .HMGCX Attending Dr: Yanni RIVERA Ordering Physician: Yanni Oliver Date of Service: 08/26/24 Procedure(s): US renal BI Accession Number(s): [id number] cc: Kody eSrvin MD; Yanni Oliver CLINICAL HISTORY: N20.0 - [...] 08/27/24 1337 DD/ 1336 TD/TT: 08/27/24 1336 Wood Milling Machine Hand: [facility] [address] [place] [address] [place] [address] Ultrasound Report Signed Patient: Carmen Ward MR#: [id number] : 1965 Acct:[id number] Age/Sex: 59 / M ADM Date: 08/26/24 Loc: HO.HMGCX [facility] Ordering Physician: Yanni Oliver Date of Service: 08/26/24 Procedure(s): US lexii al BI Accession Number(s): [id number] cc: Kody Servin MD; Yanni Oliver [facility] CLINICAL HISTORY: N2 0.0 - Calculus of [...] 08/27/24 1337 DD/ 1336 TD/TT: 08/27/24 1336 Wood Milling Machine Hand: Reason For Referral No Information Medications Medication SIG (Take, Route, Frequency, Duration) Notes Start Date End Date Status Flonase 50 MCG/ACT 1 spray in each nost ril Nasally Once a day for 30 day(s) 10/15/2013 Not-Taking Atorvastatin Calcium 40 MG TAKE 1 TABLET BY MOUTH EVERY DAY Orally Once a day Active Immunizations Vaccine [...] Problem Status W/U Status Risk Notes Problem 028847599 Atherosclerosis of abdominal aorta (I70.0) Active confirmed Problem 81295125312476469 Acute recurren t maxillary sinusitis (J01.01) Active confirmed Problem 661669790 History of hemat uria (Z87.448) Active confirmed Problem 121052677 Leukocytosis, unspecified type (D72.829) Active confirmed Problem 930285853 Pure hypercholesterolemia (E78.00) Active confirmed Problem 29158292 Pterygium, unspe cified (H11.009) Active confirmed Vital Signs Blood pressure diastolic 70 mm Hg 04/11/2025 vianey ght is up 5 pounds since 04-09-24 Height 70 in 04/11/2025 weight is up 5 pounds since 04-09-24 Blood pressure systolic 104 mm Hg 04/11/2025 weig ht is up 5 pounds since 04-09-24 Weight 199 lbs 04/11/2025 weight is up 5 pounds since 04-09-24 BMI 28.55 kg/m2 04/11/2025 weight is up 5 pounds since 04-09-24 Encounters Encounter Location Date Provider Diagnosis Kody Servin MD [address] [place], [place] [phone] 04/04/2025 Kody Servin Blood tests for rout ine general physical examination Z00.00 ; Encounter for administration of vaccine Z23 ; Pure hypercholesterolemia E78.00 and Leukocytosis, unspecified type D72.829 Kody Servin MD [address] [place] [phone] 04/11/2025 Kody Servin Adult general medica l examination Z00.00 ; Pure hypercholesterolemia E78.00 ; Elevated BUN R79.9 ; Colon cancer screening Z12.11 and Depression screen Z13.31 Kody Servin MD [address] [place] [phone] 08/02/2024 Kody Servin MD [address] [place] [address] [address] [place] [phone] 03/28/2025 Kody Servin Atherosclerosis of abdominal aorta I70.0 Assessments Encounter Date Diagnosis (ICD Code) Assessment Notes Treatment Notes Treatment Clinical Notes Section Notes 04/04/2025 Blood tests for rout ine general physical examination (ICD-10 - Z00.00) 04/04/2025 Encounter for administration of vaccine (ICD-10 - Z23) 04/11/2025 Adult general medica l examination (ICD-10 - Z00.00) Labs reviewed and discussed with patient 04/11/2025 Pure hypercholesterolemia (ICD-10 - E78.00) pending future labs, will continue current regiment 03/28/2025 Atherosclerosis of abdominal aorta (ICD-10 - I70.0) 04/04/2025 Pure hypercholesterolemia (ICD-10 - E78.00) 04/11/2025 Elevated BUN (ICD-10 - R79.9) will continue to monitor, pending future labs 04/04/2025 Leukocytosis, unspecified type (ICD-10 - D72.829) 04/11/2025 Colon cancer screeni ng (ICD-10 - Z12.11) no stool, sent home with cards will return to office 04/11/2025 Depression screen (ICD-10 - Z13.31) negative screen Plan Of Treatment Pending Test Test Name Order Date CT ABD & PELVIS WITH CONTRAST 09/27/2011 XR GI SERIES 01/14/2019 Next Appt Details Provider Name:Kody lopez, 10/09/2025 07:30:00 AM, [address], [address] [facility], [place], [place], [phone], Provider Name:Kody García ier, 10/13/2025 03:00:00 PM, [address], [address], [place], [phone], Provider Name:Kody García ier, 04/09/2026 08:00:00 AM, [address], [address], [place], [phone], Provider Name:Kody García ier, 04/16/2026 02:30:00 PM, [address], [address], [place], [phone], Insurance Providers Payer Name Payer Address Payer Phone Subscriber Number Group Number Insured Name Patient Relationship to Insured Coverage Start Date Coverage End Date [employer] [facility] [address] [place], [place] [phone] [id number] Ambrose Ward Self - patient is the insured Medical (General) History Medical History History ICD Code back pain. cysto 2012 neg pteryigium operated by Dr Silveira mass ey e and ear Colonoscopy done 07/26/17 Dr Eng,rep eat 10 years
--- OUTSIDE RECORDS SUMMARY | 2025-04-29 12:28 | XMS_ITS | Patient Health Record ---
Author Organization [facility] Address [address] [place] [address] Care Team Providers Care Lumber Hacker Name Role Phone Kody Servin MD Primary Care Provider Pito Chávez Jr Reason For Referral No Information Medications Medication SIG (Take, Route, Frequency, Duration) Notes Start Date End Date Status Colyte with Flavor Packs 240 GM Solution Reconstituted As directed Orally Over the specified time.; Duration: 1 day(s) Active Atorvastatin Calcium 10 MG Tablet take 1 tablet by mouth once daily Oral; Duration: 60 Active Aspirin Adult Low Dose 81 MG Tablet Delayed Release 1 tablet Orally Once a day Active Immunizations Vaccine Route Administration Date Status Comme nts Influenza Unknown 03/28/2017 Administered Social History Tobacco Use: Social History Observation Description Date Details (start date - stop date) Former Smoker NA - NA Social History Drugs/Alcohol: Social Info Question Answer Notes Alcohol Screen Did you have a drink containing alcohol in the past year? Yes How often did you have a drink containing alcohol in the past year? 2 to 4 times a month (2 points) How many drinks did you have on a typical day when you were drinking in the past year? 1 or 2 drinks (0 point) Points 2 Interpretation Negative Tobacco Use: Social Info Question Answer Notes Tobacco Use/Smoking Patient is a former smoker How long has it been since you last smoked? 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 Problems Problem Type SNOMED Code ICD Code Onset Dates Problem Status W/U Status Risk Notes Problem Colon cancer screening (990921434) Colon cancer screening (Z12.11) Active confirmed Problem Pre-procedure evaluation check (184315304) Encounter for other preprocedural examination (Z01.818) Active confirmed Problem Long-term current use of antiplatelet drug (508772795430655 ) Long-term use of aspirin therapy (Z79.82) Active confirmed Plan Of Treatment Future Test Test Name Order Date COLONOSCOPY 03/30/2017 Insurance Providers Payer Name Payer Address Payer Phone Subscriber Number Group Number Insured Name Patient Relationship to Insured Coverage Start Date Coverage End Date [facility] [employer] [address] [place] [address] [id number] AURY MORIN Self - patient is the insured Medical (General) History Medical History History ICD Code elevated cholesterol Surgical History Surgery Date(Month/Year) hernia left 2017 hernia right 2014 pterygium left 2013 pterygium right 2012
== END 2025-04-29 10:14 | disposition home or self-care (01) ==
LOC: HO.HMGCX 10:13
PROVIDERS: PCP Internal Medicine; Visit Provider Nurse Practitioner Family
DX: N20.0 Calculus of kidney (principal)
CPT/HCPCS: 76775

== ENCOUNTER → 2025-04-29 10:15 | Outpatient (BNV) | payer BC, SELFPAY | PROVIDERS: PCP Internal Medicine; Visit Provider Radiology Diagnostic Radiology | DX: N28.1 Cyst of kidney, acquired (principal) | CPT/HCPCS: 76775 ==

== ENCOUNTER 2025-06-04 08:21 | Outpatient (REF) | payer BC, SELFPAY | END 2025-06-04 08:22 | disposition home or self-care (01) | LOC: HO.LAB 08:21 | PROVIDERS: PCP Internal Medicine; Visit Provider Nurse Practitioner Family | DX: N20.0 Calculus of kidney (principal); R31.29 Other microscopic hematuria | CPT/HCPCS: 81003; 88112 ==

== ENCOUNTER 2025-06-04 08:21 | Outpatient (AMB) | payer BC, SELFPAY ==
--- OUTSIDE RECORDS SUMMARY | 2024-01-30 09:15 | XMS_ITS ---
Author Organization Kody Servin MD Address [address] [place], [place] [phone] Care Team Providers Care Pediatrician Name Role Phone GarethNuryn Primary Care Provider Allergies No Known Allergies Reason For Referral [...] Location Date Provider Diagnosis Kody Servin MD [address] [place] [address] [place] [phone] 01/30/2024 Kody Servin Acute abscess L02.91 Assessments [...] Reason: Provider Name:Kody lopez, 10/09/2025 07:30:00 AM, [address] [place] [address], [address], [phone], Provider Name:Kody lopez, 10/13/2025 03:00:00 PM, [address] [place] [address], [address], [phone], Provider Name:Kody lopez, 04/09/2026 08:00:00 AM, [address] [place] [address], [address], [phone], Provider Name:Kody lopez, 04/16/2026 02:30:00 PM, [address], [address], [place], [place], [phone], Progress Notes * Ambrose MORIN PDOB:[birth year] (58 yo M)Acc No.[id number]:01/30/2024 Progress Notes Patient: Ambrose Jordan Provider: Marsha Servin MD :1965 A ge:58 Y S ex:Male Date:01/30/2024 Address:[address] [place] [address] [place], [id number] Subjective: * Chief Complaints: * L arge [...] 0 01/30/2024 Generated for Priya potts/Ken/Adonayitting on: 08:27 AM EST History and Physical Notes * HPI [...]
--- OUTSIDE RECORDS SUMMARY | 2024-02-06 04:30 | XMS_ITS ---
Author Organization Kody Servin MD Address [address] [place], [place] [phone] Care Team Providers Care Lay Out Carpenter Name Role Phone Kody Servin Primary Care Provider Allergies No Known Allergies REASON FOR VISIT [...] Location Date Provider Diagnosis Kody Servin MD [address] [place] [phone] 02/06/2024 Kody Servin Acute abscess L02.91 Assessments [...] Details Provider Name:Kody lopez, 10/09/2025 07:30:00 AM, [address] [place] [address], [address], [phone], Provider Name:Kody lopez, 10/13/2025 03:00:00 PM, [address] [place] [address], [address], [phone], Provider Name:Kody lopez, 04/09/2026 08:00:00 AM, [address] [place] [address], [address], [phone], Provider Name:Kody lopez, 04/16/2026 02:30:00 PM, [address] [place] [address], [phone], Progress Notes * Ambrose MORIN PDOB:[birth year] (58 yo M)Acc No.[id number]:02/06/2024 Patient: Susanna Ambrose menendez Provider: Marsha Servin MD :1965 A ge:58 Y S ex:Male Date:02/06/2024 Address: [place], [id number] Subjective: * Chief Complaints: * 1 week [...] 0 02/06/2024 Generated for Priya potts/Ken/Adonayitting on: 08:27 AM [...]
--- OUTSIDE RECORDS SUMMARY | 2024-02-22 08:50 | XMS_ITS ---
Author Organization Kody Servin MD Address [address] [place] [phone] Care Team Providers Care Services Account Manager Name Role Phone GarethKody Primary Care Provider [phone] REASON FOR VISIT ER Encounters Encounter Location Date Provider Diagnosis Kody Servin MD 10 [facility] [address] [place] [phone] 02/22/2024 Kody Servin Plan Of Treatment Next Appt Details Provider Name:Kody lopez, 10/09/2025 07:30:00 AM, [address] [place] [address], Suite [facility], [place], [place], [phone], Provider Name:Kody lopez, 10/13/2025 03:00:00 PM, [address] [place] [address], [place] [address], [place], [place], [phone], Provider Name:Kody lopez, 04/09/2026 08:00:00 AM, [address], [address], [place], [phone], Provider Name:Kodyyulissa lopez, 04/16/2026 02:30:00 PM, [address], [address], [place], [phone], Progress Notes * Ambrose MORIN PDOB:[birth year] (58 yo M)Acc No.[id number]:02/22/2024 Patient: Ambrose Jordan :1965 A ge:58 Y S ex:Male Address:[address] [place] [address] [place], [id number] * true * Date: Generated for Priya potts/Ken/eTerichsmitting on: 08:27 AM EST
--- OUTSIDE RECORDS SUMMARY | 2024-04-02 02:15 | XMS_ITS ---
Author Organization Kody Servin MD Address [address] [place], [place] [phone] Care Team Providers Care Refrigerator Tester Name Role Phone GarethNuryn Primary Care Provider [phone] Results Component Value Reference Range Notes Complete Blood Count Auto Di ff Reviewed date:04/02/2024 12:19:26 PM Interpretation: Performing Lab:[facility], [address] [place] [phone] Notes/Report: White Blood Count 11.5 4.8-10.8 X10*3/uL [...] NRBC Abs Auto 0.000 0.0-0.012 X10*3/uL Comprehensive [place]. Panel Fa st Reviewed date:04/02/2024 12:39:33 PM Interpretation: Performing Lab:[facility], [address] [place] [phone] Notes/Report: Sodium 145 135-145 mmol/L Potassium 4.2 3.3-5.1 mmol/L Chloride 105 96-108 mmol/L Carbon Dioxide 27 22-29 mmol/L Anion Gap 17 12-20 Blood Urea Nitrogen 19 9-16 mg/dL Creatinine 0.91 0.5-1.4 mg/dL Estimated Glomerular Filt Rate > 60 NOTE: For -Wallisian individuals, multiply the result by 1.210. Chronic [...] Panel Reviewed date:04/02/2024 12:24:41 PM Interpretation: Performing Lab:[facility], [address] [place] [phone] Notes/Report: Triglycerides 157 <150 mg/dL Desirable Triglyceride: [...] date:04/11/2024 08:23:06 AM Interpretation:NATALIA 04/09 PSA Performing Lab:[facility], [address] [place] [phone] Notes/Report: PSA,Total (Free>4and<10) 1.82 0.00-4.00 ng/mL A [...] t Reviewed date:04/02/2024 12:42:14 PM Interpretation: Performing Lab:[facility], [address] [place] [phone] Notes/Report: Urine, Clean Catch Color Urine Yellow Appearance Urine Clear PH 6.5 5.0-9.0 Glucose Urine UA Negative Negative mg/dL Urine Blood Negative Negative Specific [place] - Urine 1.020 1.005-1.025 Urine Protein Negative [...] labs Encounters Encounter Location Date Provider Diagnosis oKdy Servin MD [address] [place] [phone] 04/02/2024 Kody Servin Blood tests for rout [...] Details Provider Name:Kody lopez, 10/09/2025 07:30:00 AM, [address] [place] [address], [phone], Provider Name:Kody lopez, 10/13/2025 03:00:00 PM, [address] [place] [address], [phone], Provider Name:Kody lopez, 04/09/2026 08:00:00 AM, [address] [place] [address], [phone], Provider Name:Kody lopez, 04/16/2026 02:30:00 PM, [address] [place] [address], [phone], Progress Notes * Ambrose MORIN PDOB:[birth year] (59 yo M)Acc No.[id number]:04/02/2024 Progress Note Patient: Ambrose VAZQUEZ Provider: Marsha Servin MD :1965 A ge:58 Y S ex:Male Date:04/02/2024 Address:[address] [place] [address] [place] Subjective: * Chief Complaints: * 1 . [...] Time - 04/02/2024 07:15 AM) ?LAB: Comprehensive [place]. Panel Fast (Collection Date & Time - [...] Time - 04/02/2024 07:15 AM) ?LAB: Comprehensive [place]. Panel Fast (Collection Date & Time - [...] Pending * Provider: Marsha Servin MD Date: 1 Generated for Priya potts/Ken/Jaiden on: 08:26 AM EST
--- OUTSIDE RECORDS SUMMARY | 2024-04-09 10:15 | XMS_ITS ---
Author Organization Kody Servin MD Address [address] [place], [place] [phone] Care Team Providers Care Computer Systems Technology Instructor Name Role Phone Gareth Kody Primary Care Provider Allergies No Known Allergies [...] Problem Status W/U Status Risk Notes Problem [id number] Atherosclerosis of abdominal aorta (I70.0) Active confirmed Vital Signs Blood pressure systolic 110 mm Hg 04/09/20 24 Blood pressure diastolic 80 mm Hg 024 Height 70 in 04/09/2024 Weight 194 lbs 04/09/2024 BMI 27.83 kg/m2 04/09/2024 weight is down 6 pounds [facility] e 9 Encounters Encounter Location Date Provider Diagnosis Kody Servin MD [address] [place] [address] Drive [address] [place], [place] [phone] 04/09/2024 Kody Servin Pure hypercholestero lemia E78.00 [...] Reason: Provider Name:Kody lopez, 10/09/2025 07:30:00 AM, [address] [place] [address], Suite [facility], [place], [place], [phone], Provider Name:Kody lopez, 10/13/2025 03:00:00 PM, [address] [place] [address], [address], [place], [place], [phone], Provider Name:Kody García ier, 04/09/2026 08:00:00 AM, [address], [address], [place], [phone], Provider Name:Kody García ier, 04/16/2026 02:30:00 PM, [address], [address], [place], [phone], Progress Notes * Ambrose MORIN PDOB:[birth year] (58 yo M)Acc No.[id number]:04/09/2024 Progress Notes Patient: Ambrose Jordan Provider: Marsha Servin MD :1965 A ge:58 Y S ex:Male Date:04/09/2024 Address:[address] [place] [address] Subjective: * Chief Complaints: * A nnual [...] mg/dL Urine Blood Negative Negative - Specific [place] - Urine 1.020 1.005-1.025 - Urine Protein [...] Auto 0.000 0.0-0.012 - X10*3/uL L ab:Comprehensive [place]. Panel Fast (Order Date - 04/02/2024) (Collection [...] Date: 06/09/2023 Generated for Priya potts/Ken/Adonayitting on: 08:27 AM [...]
--- OUTSIDE RECORDS SUMMARY | 2024-07-11 02:30 | XMS_ITS ---
Author Organization Kody Servin MD Address [address] [place], [place] [phone] Care Team Providers Care Supervisor Frame Assembly Name Role Phone Gareth Kody Primary Care Provider REASON FOR VISIT fasting liver lipids Encounters Encounter Location Date Provider Diagnosis Kody Servin MD [address] [place] [phone] 07/11/2024 Kody Servin Pure hypercholestero lemia E78.00 and Atherosclerosis of abdominal aorta I70.0 Assessments Encounter Date Diagnosis (ICD Code) Assessment Notes Treatment Notes Treatment Clinical Notes Section Notes 07/11/2024 Pure hypercholesterolemia (ICD-10 - E78.00) 07/11/2024 Atherosclerosis of abdominal aorta (ICD-10 - I70.0) Plan Of Treatment Next Appt Details Provider Name:Kody lopez, 10/09/2025 07:30:00 AM, [address], Suite [facility], [place], [place], [phone], Provider Name:Kody García ier, 10/13/2025 03:00:00 PM, [address], [address], [place], [phone], Provider Name:Kody García ier, 04/09/2026 08:00:00 AM, [address], [address], [place], [phone], Provider Name:Kody García ier, 04/16/2026 02:30:00 PM, [address], [address], [place], [phone], Progress Notes * Ambrose MORIN PDOB:[birth year] (59 yo M)Acc No.[id number]:07/11/2024 Progress Note Patient: Ambrose VAZQUEZ Provider: Marsha Servin MD :1965 A ge:59 Y S ex:Male Date:07/11/2024 Address:[address] [place] [address] [id number] Subjective: * Chief Complaints: * 1 . Fasting liver lipids. * Medical History: Objective: * Vitals: Assessment: * Assessment: 1. P ure hypercholesterolemia - E78.00 2 . A therosclerosis of abdominal aorta - I70.0 Plan: * Treatment: * * The named appointment provid er may or may not be the originator of this progress note, and it is not deemed complete until electronically signed by the appointment provider. Sign off status: Pending * Provider: Marsha Servin MD Date: 0 07/11/2024 Generated for Priya potts/Ken/Wilfredosmitting on: 08:26 AM EST
--- OUTSIDE RECORDS SUMMARY | 2024-08-02 08:57 | XMS_ITS ---
Author Organization Kody Servin MD Address [address] [place] [phone] Care Team Providers Care Enrollment Eligibility Representative Name Role Phone GarethNuryn Primary Care Provider REASON FOR VISIT ins referral Encounters Encounter Location Date Provider Diagnosis Kody Servin MD [address] [facility] [address] [place] [phone] 08/02/2024 Kody Servin Plan Of Treatment Next Appt Details Provider Name:Kody lopez, 10/09/2025 07:30:00 AM, [address] [place] [address], Suite [facility], [place], [place], [phone], Provider Name:Kody lopez, 10/13/2025 03:00:00 PM, [address] [place] [address], Suite [facility], [place], [place], [phone], Provider Name:Kody lopez, 04/09/2026 08:00:00 AM, [address], [address], [place], [place], [phone], Provider Name:Kody lopez, 04/16/2026 02:30:00 PM, [address], [address], [place], [phone], Progress Notes * Ambrose MORIN PDOB:[birth year] (59 yo M)Acc No.[id number]:08/02/2024 Patient: Ambrose VAZQUEZ :1965 A ge:59 Y S ex:Male Address:[address] [place] [address] [place], [address] * true * Date: Generated for Priya potts/Ken/eTransmitting on: 08:27 AM EST
--- OUTSIDE RECORDS SUMMARY | 2025-03-28 05:10 | XMS_ITS ---
Author Organization Kody Servin MD Address [address] [place] [phone] Care Team Providers Care Curtain Stretcher Name Role Phone MayaKody mccullough Primary Care Provider [phone] REASON FOR VISIT RF Atorvastatin Medications Medication SIG (Take, Route, Frequency, Duration) Notes Start Date End Date Status Atorvastatin Calcium 40 MG TAKE 1 TABLET BY MOUTH EVERY DAY Orally Once a day for 90 days Active Encounters Encounter Location Date Provider Diagnosis Kody Servin MD [address] [place] [phone] 03/28/2025 Kody Servin Atherosclerosis of abdominal aorta I70.0 Assessments Encounter Date Diagnosis (ICD Code) Assessment Notes Treatment Notes Treatment Clinical Notes Section Notes 03/28/2025 Atherosclerosis of abdominal aorta (ICD-10 - I70.0) Plan Of Treatment Medication Medication Name Sig Start Date Stop Date Notes Atorvastatin Calcium 40 MG TAKE 1 TABLET BY MOUTH EVERY DAY Orally Once a day for 90 days Next Appt Details Provider Name:Kody lopez, 10/09/2025 07:30:00 AM, [address] [place] [address], [address], [place], [place], [phone], Provider Name:Kody García jessica, 10/13/2025 03:00:00 PM, [address] [place] [address], Suite [facility], [place], [place], [phone], Provider Name:Kody García inesr, 04/09/2026 08:00:00 AM, [address] [place] [address], Suite [facility], [place], [place], [phone], Provider Name:Kody García inesr, 04/16/2026 02:30:00 PM, [address] [place] [address], Suite [facility], [place], [place], [phone], Progress Notes * Ambrose MORIN PDOB:[birth year] (59 yo M)Acc No.[id number]:03/28/2025 Patient: Susanna Ambrose LEOS :1965 A ge:59 Y S ex:Male Address:[address] [place] [address] [place], [address] * Refills Refill Atorvastatin Calcium Tablet, 40 MG, Orally, 90, TAKE 1 TABLET BY MOUTH EVERY DAY, Once a day, 90 days, Refills=3 * true * Date: Generated for Priya potts/Ken/Adonayitting on: 1 08:27 AM EST
--- OUTSIDE RECORDS SUMMARY | 2025-04-04 02:15 | XMS_ITS ---
Author Organization Kody Servin MD Address [address] [place], [place] [phone] Care Team Providers Care Precinct Police Lieutenant Name Role Phone GarethNuryn Primary Care Provider Results Component Value Reference Range Notes Complete Blood Count Auto Di ff Reviewed date:04/04/2025 12:28:04 PM Interpretation: Performing Lab:[facility], [address] [place] [phone] Notes/Report: White Blood Count 8.1 4.8-10.8 X10*3/uL [...] NRBC Abs Auto 0.000 0.0-0.012 X10*3/uL Comprehensive [place]. Panel Fa st Reviewed date:04/04/2025 12:32:25 PM Interpretation: Performing Lab:[facility], [address] [place] [phone] Notes/Report: Sodium 142 135-145 mmol/L Potassium 4.0 [...] Panel Reviewed date:04/04/2025 12:28:13 PM Interpretation: Performing Lab:[address] [phone] Notes/Report: Triglycerides 152 <150 mg/dL Desirable Triglyceride: [...] (Free>4and<10) Reviewed date:04/04/2025 12:21:15 PM Interpretation: Performing Lab:[address] [phone] Notes/Report: PSA,Total (Free>4and<10) 1.76 0.00-4.00 ng/mL A [...] t Reviewed date:04/04/2025 12:28:30 PM Interpretation: Performing Lab:[address] [phone] Notes/Report: Urine, Clean Catch Color Urine Yellow Appearance Urine Clear PH 5.5 5.0-9.0 Glucose Urine UA Negative Negative mg/dL Urine Blood Trace Negative Specific [place] - Urine 1.025 1.005-1.025 Urine Protein Negative [...] Location Date Provider Diagnosis Kody Servin MD [address] [place] [phone] 04/04/2025 Kody Servin Blood tests for rout [...] Details Provider Name:Kody lopez, 10/09/2025 07:30:00 AM, [address] [place] [address], [address], [phone], Provider Name:Kody lopez, 10/13/2025 03:00:00 PM, [address] [place] [address], [address], [phone], Provider Name:Kody lopez, 04/09/2026 08:00:00 AM, [address] [place] [address], [address], [phone], Provider Name:Kody García ier, 04/16/2026 02:30:00 PM, [address], [address], [place], [place], [phone], Progress Notes * Ambrose MORIN PDOB:[birth year] (59 yo M)Acc No.[id number]:04/04/2025 Progress Note Patient: Ambrose VAZQUEZ Provider: Marsha Servin MD :1965 A ge:59 Y S ex:Male Date:04/04/2025 Address:[address] [place], [place] [phone] Subjective: * Chief Complaints: * 1 . [...] - 04/04/2025 10:24 AM) L AB: Comprehensive [place]. Panel Fast (Collection Date & Time - [...] - 04/04/2025 10:24 AM) L AB: Comprehensive [place]. Panel Fast (Collection Date & Time - [...] * Procedure Codes: 3 6415 VENIPUNCT, ROUTINE*, 90604 FLU VACCINE NO PRESERV 3 & >, [address] IMMUNIZATION ADMIN * * The named appointment provid er may or may not be the originator of this progress note, and it is not deemed complete until electronically signed by the appointment provider. Sign off status: Pending * Provider: Marsha Servin MD Date: Generated for Priya potts/Ken/Adonayitting on: 08:27 AM EST
--- OUTSIDE RECORDS SUMMARY | 2025-04-11 09:30 | XMS_ITS ---
Author Organization Kody Servin MD Address [address] [place], [place] [phone] Care Team Providers Care Milieu Technician Name Role Phone Gareth Kody Primary Care Provider [phone] Allergies Allergen (clinical drug ingredient) Drug/Non Drug [...] Servin MD [address] [place], [place] [phone] 04/11/2025 Kody Servin Adult general medica l [...] Colon cancer screening no stool, sent ho [place] with cards will return to office Depression screen negative screen Future Test Test Name Order Date Liver Panel 10/09/2025 Blood Urea Nitrogen 10/09/2025 Creatinine 10/09/2025 Lipid Panel 10/09/2025 Next Appt Details Follow Up: 6 Months, Reason: Provider Name:Kody lopez, 10/09/2025 07:30:00 AM, [address], [address], [place], [place], [phone], Provider Name:Kody lopez, 10/13/2025 03:00:00 PM, [address], [address], [place], [place], [phone], Provider Name:Kody García jessica, 04/09/2026 08:00:00 AM, [address], [address], [place], [phone], Provider Name:Kody García inesr, 04/16/2026 02:30:00 PM, [address], [address], [place], [phone], Progress Notes * Ambrose MORIN PDOB:[birth year] (59 yo M)Acc No.[id number]:04/11/2025 Progress Notes Patient: Ambrose VAZQUEZ Provider: Marsha Servin MD :1965 A ge:59 Y S ex:Male Date:04/11/2025 Address:[address] [place] [address] [place], [place] Subjective: * Chief Complaints: * 1 . [...] Urine Blood Trace A Negative - Specific [place] - Urine 1.025 1.005-1.025 - Urine Protein [...] Auto 0.000 0.0-0.012 - X10*3/uL L ab:Comprehensive [place]. Panel Fast (Order Date - 04/04/2025) (Collection [...] Date: 06/11/2024 Generated for Priya Urias/Jaiden on: 08:26 AM EST History and Physical Notes * [...]
--- NOTE | 2025-06-04 08:23 | A.OFFVIS_ITS ---
Intake Visit Reasons: US/UA- r/s from waitlist Intake Note: Patient is present for US /UA Urology Medication:NONE Antibiotic Allergy:NONE Blood Thinner:NONE Game Technician Required: No Allergies No Known Allergies (No Known Allergies*) Allergy (Verified 06/04/25 09:20) Medication List - Last Reconciled 06/04/25 by MIGUEL Kirkland atorvastatin 40 mg PO DAILY HPI Comments Details: Ambrose Pizarro is a 59-year-old male patient of Dr. Servin. He presents to the office today for follow-up of his nephrolithiasis. In discussion with the patient today reports to be doing and feeling well. He denies having had any bothersome urological issues or concerns since his last office visit. Most recent renal imaging results reviewed with the patient today. Renal ultrasound 04/29 bilateral kidneys are normal in size and echotexture. No hydronephrosis noted bilaterally. A small lower pole left renal cyst measuring 9 mm otherwise unremarkable kidneys per radiology report. Most recent PSA results reviewed with the patient today as noted and trended below: PSA: 01/22 1.0, 01/23 1.0, 03/26 1.2, 03/27 1.4, 03/28 1.8, 03/29 1.8 He denies urinary urgency, urinary frequency, incontinence, nocturia, hematuria, dysuria, foul smelling urine, changes to urinary stream, flank pain, fever, and or chills. He is happy with his current voiding parameters. In office urinalysis results reviewed with the patient today. We did discussed importance of adequate hydration relation to nephrolithiasis as well as overall health and well-being. He otherwise offers no other issues or concerns at this time. 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 Review of Systems Const All systems reviewed & are unremarkable except as noted in HPI and below Physical Exam Const General: cooperative, healthy appearing, comfortable, no acute distress, well developed, alert and awake Orientation/consciousness: patient oriented x3 Limitations: no limitations HEENT Head: Yes normal to inspection, Yes normocephalic and Yes atraumatic Ears: hearing grossly normal bilaterally Eyes General: appearance normal, both eyes and all related structures Neck Neck: Yes normal visual inspection and Yes trachea midline Chest Chest palpation & inspection: normal inspection of the chest Resp Effort & Inspection: normal respiratory effort and able to speak in complete sentences Cardio Rate: regular rate GI Inspection: Yes normal to inspection General: Yes no CVA tenderness Back/Spine/Pelvis Back: no CVA tenderness Skin General skin exam: no rashes or lesions noted Neuro General: patient oriented x3 Extrem General: Yes normal to inspection Psych Appearance: grossly normal and well kempt Mental Status: mental status grossly normal Speech and movement: Normal speech and movement present and Clear speech present Affect: normal affect Attitude: cooperative Thought process: Normal thought process present Thought content: Normal thought content present Insight: Fair insight present (Psych) Judgement: Fair judgement present (Psych) Results AMB Urinalysis, Automated UA Leukoctes 0 Rudy/uL Last Edit by NANDO Steven on 06/04/25 08:34 UA Nitrite Negative Last Edit by NANDO Steven on 06/04/25 08:34 UA Urobilinogen 0.2 mg/dL Last Edit by NANDO Steven on 06/04/25 08:3 4 UA Protein 0 mg/dL Last Edit by NANDO Steven on 06/04/25 08:34 UA pH 6.0 Last Edit by NANDO Steven on 06/04/25 08:34 UA Blood 10 Johnathan/uL Last Edit by NANDO Steven on 06/04/25 08:34 UA Specific [place] 1.020 Last Edit by NANDO Steven on 06/04/25 08: 34 UA Ketone Negative Last Edit by NANDO Steven on 06/04/25 08:34 UA Bilirubin 0 mg/dL Last Edit by NANDO Steven on 06/04/25 08:34 UA Glucose 0 mg/dL Last Edit by NANDO Steven on 06/04/25 08:34 Results Reviewed Results Reviewed: Laboratory Last Values Urine pH (Auto) 6.0 06/04/25 08:28 Specific [place] (Auto) 1.020 06/04/25 08:28 Urine Protein (Auto) 0 mg/dL 06/04/25 08:28 Glucose (UA)(Auto) 0 mg/dL 06/04/25 08:28 Urine Ketones (Auto) Negative 06/04/25 08:28 Urine Blood (Auto) 10 Johnathan/uL 06/04/25 08:28 Urine Nitrite (Auto) Negative 06/04/25 08:28 Urine Bilirubin (Auto) 0 mg/dL 06/04/25 08:28 Urine Urobilinogen (Auto) 0.2 mg/dL 06/04/25 08:28 Leukocyte Esterase (Auto) 0 Rudy/uL 06/04/25 08:28 Date of Service: 04/29/25 Procedure(s): US renal BI Findings: Right kidney normal size and echotexture, 10.1 cm length. No hydronephrosis. Normal color flow. Left kidney normal size and echotexture, 11.2 cm length. No hydronephrosis. Normal color flow. A small lower pole cyst measuring up to 9 mm appears grossly stable (previously measuring up to 11 mm). Impression: 1. Similar small left renal cyst. Otherwise, unremarkable kidneys Assessment & Plan Assessment & Plan (1) Nephrolithiasis: Code(s): N20.0 - Calculus of kidney Category: Medical Plan Recent renal imaging results reviewed with the patient today; as noted above. Recent PSA results with the patient today Discussed, educated, and stressed the importance of adequate hydration relation to nephrolithiasis as well as overall health and well-being. Patient currently denies any bothersome urinary issues or concerns. We discussed adding 1 oz of lemon juice to water daily. He reports be happy with current voiding parameters. Will obtain renal ultrasound in 1 year Will obtain PSA in 1 year Follow-up in 1 year with PSA, imaging, and PVR; or sooner with any issues, concerns, and or questions. Orders: Orders AMB Urinalysis Automated Today Z13.9 - Encounter for screening, unspecified Urine Cytology Today R31.29 - Other microscopic hematuria US renal BI 1 Year N20.0 - Calculus of kidney Prostate Specific Antigen 1 Year N40.0 - Benign prostatic hyperplasia without lower urinary tract symptoms Patient Instructions: The patient had an opportunity to ask questions regarding the treatment plan. All questions were answered. Physical exam, labs, and imaging were discussed and reviewed in detail. As well as risks, benefits, and discussion of treatment choices. No major barriers to understanding were identified. The patient expressed understanding and agreement with the above treatment plan. The patient was made aware they should contact our office by phone for worsening of their current condition, the appearance of new symptoms, or with any qu estions or concerns. Compliance is encouraged with any medications and follow up testing that is ordered. It is a privilege to be allowed the opportunity to participate in? your urological care.? Again, if you have any questions or concerns If you have any questions or concerns please do not hesitate to contact me. The office is [phone]. This note is constructed using voice recognition software. While every effort has been made to ensure accuracy pipe or steam fitter furnace installer errors may have been included. Yours sincerely, MIGUEL Kirkland Coding Level of Care Code Est Pt Level 3 (79162) Diagnoses Nephrolithiasis N20.0
--- OUTSIDE RECORDS SUMMARY | 2025-06-04 08:26 | XMS_ITS | Patient Health Record ---
Author Organization [facility] Address [address] [place] [address] Care Team Providers Care Application Architect Name Role Phone Kody Servin MD Primary Care Provider Pito Chávez Jr [phone] Reason For Referral No Information Medications Medication [...] Status Risk Notes Problem Colon cancer screening (598913506) Colon cancer screening (Z12.11) Active confirmed Problem Pre-procedure evaluation check (812015741) Encounter for other preprocedural examination (Z01.818) Active confirmed Problem Long-term current use of antiplatelet drug (249320921581586 ) Long-term use of aspirin therapy (Z79.82) Active confirmed Plan Of Treatment Future Test Test Name Order Date COLONOSCOPY 03/30/2017 Insurance Providers Payer Name Payer Address Payer Phone Subscriber Number Group Number Insured Name Patient Relationship to Insured Coverage Start Date Coverage End Date [facility] [address] [place] [address] [id number] AURY MORIN Self - patient is the insured Medical (General) History Medical History History ICD Code elevated cholesterol Surgical History Surgery Date(Month/Year) hernia left 2017 hernia right 2014 pterygium left 2013 pterygium right 2012
--- OUTSIDE RECORDS SUMMARY | 2025-06-04 08:27 | XMS_ITS | Patient Health Record ---
Author Organization Kody Servin MD Address [address] [place] [phone] Care Team Providers Care Biodiesel Process Control Technician Name Role Phone Gareth Kody Primary Care Provider [phone] Allergies Allergen (clinical drug ingredient) Drug/Non Drug Allergy documented on EMR Reaction Allergy Type Onset Date Status amoxicillin Amoxicillin itchy hands and feet Drug Allergy Active Results Component Value Reference Range Notes Complete Blood Count Auto Di ff Reviewed date:04/04/2025 12:28:04 PM Interpretation: Performing Lab:[facility], [address] [place] [id number] Notes/Report: White Blood Count 8.1 4.8-10.8 X10*3/uL [...] NRBC Abs Auto 0.000 0.0-0.012 X10*3/uL Comprehensive [place]. Panel Fa st Reviewed date:04/04/2025 12:32:25 PM Interpretation: Performing Lab:[facility], [address] [place] [phone] Notes/Report: Sodium 142 135-145 mmol/L Potassium 4.0 [...] Panel Reviewed date:04/04/2025 12:28:13 PM Interpretation: Performing Lab:[facility], [address] [place] [phone] Notes/Report: Triglycerides 152 <150 mg/dL Desirable Triglyceride: [...] (Free>4and<10) Reviewed date:04/04/2025 12:21:15 PM Interpretation: Performing Lab:[facility], [address] [place] [phone] Notes/Report: PSA,Total (Free>4and<10) 1.76 0.00-4.00 ng/mL A [...] t Reviewed date:04/04/2025 12:28:30 PM Interpretation: Performing Lab:[facility], [address] [place] [address] Notes/Report: Urine, Clean Catch Color Urine Yellow Appearance Urine Clear PH 5.5 5.0-9.0 Glucose Urine UA Negative Negative mg/dL Urine Blood Trace Negative Specific [place] - Urine 1.025 1.005-1.025 Urine Protein Negative Neg-Trace mg/dL Urine Ketones Negative Negative mg/dL Nitrite Urine Negative Negative Leukocyte Esterase Urine Negative Negative RBC Urine 0-2 0-2 /HPF WBC Urine 0-5 0-5 /HPF Squamous Epithelial Cell Urine 0-2 0-2 /HPF Bacteria Urine None Seen None Seen Hyaline Casts Urine 0-2 0-2 /LPF US renal BI Reviewed date:08/27/2024 08:05:15 PM Interpretation: Performing Lab: Notes/Report: [facility] [address] [place] [address] [place] [address] Ultrasound Report Signed Patient: Ambrose Ward MR#: [id number] 351 : 1965 Acct:[id number] Age/Sex: 59 / M ADM Date: 08/26/24 Loc: .[facility] Attending Dr: Yanni RIVERA Ordering Physician: Yanni Oliver Date of Service: 08/26/24 Procedure(s): US renal BI Accession Number(s): [id number] cc: Kody Servin MD; Yanni Oliver CLINICAL [...] 08/27/24 1337 DD/ 1336 TD/TT: 08/27/24 1336 Cager Operator: [facility] [address] [place] [address] Ultrasound Report Signed Patient: Carmen Ward MR#: [id number] 351 : 1965 Acct:[id number] Age/Sex: 59 / M ADM Date: 08/26/24 [facility] Dr: Yanni RIVERA Ordering Physician: Yanni Oliver Date of Service: 08/26/24 Procedure(s): US lexii al BI Accession Number(s): [id number] cc: Kody Servin MD; Yanni Oliver CLINICAL [...] OV> 08/27/24 1337 DD/ 1336 TD/TT: 08/27/24 133 Cager Operator: US renal BI Reviewed date:04/30/2025 05:04:12 PM Interpretation: Performing Lab: Notes/Report: [facility] [address] [place] [address] Ultrasound Report Signed Patient: Ambrose Ward MR#: [id number] 351 : 1965 Acct:[id number] Age/Sex: 59 / M ADM Date: 04/29/25 [facility] Dr: Yanni RIVERA Ordering Physician: Yanni Oliver Date of Service: 04/29/25 Procedure(s): US renal BI Accession Number(s): [id number] cc: Kody Servin MD; Yanni Oliver Reason for Exam: N20.0 - Calculus of kidney CLINICAL HISTORY: N20.0 - Calculus of kidney US kidneys Comparison: 08/26/2024 Findings: Right kidney normal size and echotexture, 10.1 cm length. No hydronephrosis. Normal color flow. Left kidney normal size and echotexture, 11.2 cm length. No hydronephrosis. Normal color flow. A small lower pole cyst measuring up to 9 mm appears grossly stable (previously measuring up to 11 mm). Impression: 1. Similar small left renal cyst. Otherwise, unremarkable kidneys This document has been electronically signed by: Curtis Perez MD on 04/29/2025 17:13:00 Dictated By: Curtis Perez MD Signed By: <Electronically signed by Curtis Perez MD in OV> 04/29/251712 DD/ 12 TD/TT: 04/29/251712 Cager Operator: [facility] [address] [place] [address] [place] [address] Ultrasound Report Signed Patient: Carmen Ward MR#: [id number] 351 : 1965 Acct:[id number] Age/Sex: 59 / M ADM Date: 04/29/25 [facility]: Yanni RIVERA Ordering Physician: Yanni Oliver Date of Service: 04/29/25 Procedure(s): US lexii [place] Accession Number(s): [id number] cc: Kody Servin MD; Yanni Oliver Reason for Exam: N20 .0 - Calculus of kidney CLINICAL HISTORY: N2 0.0 - Calculus of kidney US kidneys Comparison: 08/26/2024 Findings: Right kidney normal size and echotexture, 10.1 cm length. No hydronephrosis. Norm al color flow. Left kidney normal s ize and echotexture, 11.2 cm length. No hydronephrosis. Norm al color flow. A small lower pole cyst measuring up to 9 mm appears grossly stable (previously measuring up to 11 mm). Impression: 1. Similar small lef t renal cyst. Otherwise, unremarkable kidneys This document has be en electronically signed by: Curtis Perez MD on 04/29/2025 17:13:00 Dictated By: Curtis Perez MD Signed By: <Electronically signed by Curtis Perez MD in OV> 04/29/251712 DD/ 12 TD/TT: 04/29/251712 Cager Operator: Reason For Referral No Information Medications Medication [...] Problem Status W/U Status Risk Notes Problem 699805806 Atherosclerosis of abdominal aorta (I70.0) Active confirmed Problem 14128630351918822 Acute recurren t maxillary sinusitis (J01.01) Active confirmed Problem 170542361 History of hemat uria (Z87.448) Active confirmed Problem 731255997 Leukocytosis, unspecified type (D72.829) Active confirmed Problem 804654904 Pure hypercholesterolemia (E78.00) Active confirmed Problem 44583039 Pterygium, unspe cified (H11.009) Active confirmed Vital [...] Location Date Provider Diagnosis Kody Servin MD [address] [place] [address] [address] [place] [id number] 04/04/2025 Kody Servin Blood tests for rout ine general physical examination Z00.00 ; Encounter for administration of vaccine Z23 ; Pure hypercholesterolemia E78.00 and Leukocytosis, unspecified type D72.829 Kody Servin MD [address] [place] [address] Drive [address] [place] [address] [id number] 04/11/2025 Kody Servin Adult general medica l examination Z00.00 ; Pure hypercholesterolemia E78.00 ; Elevated BUN R79.9 ; Colon cancer screening Z12.11 and Depression screen Z13.31 Kody Servin MD [address] [place] [address] [address] [place] [id number] 08/02/2024 Kody Servni MD [address] [place] [address] [address] [place] [id number] 03/28/2025 Kody Servin Atherosclerosis of abdominal aorta [...] SERIES 01/14/2019 Next Appt Details Provider Name:Kody Hokamla ier, 10/09/2025 07:30:00 AM, [address] [place] [address], [address], [phone], Provider Name:Kody Perla Raquel ier, 10/13/2025 03:00:00 PM, [address] [place] [address], [address], [phone], Provider Name:Kody Perla Raquel ier, 04/09/2026 08:00:00 AM, [address] [place] [address], [address], [phone], Provider Name:Kody Perla Raquel ier, 04/16/2026 02:30:00 PM, [address] [place] [address], [address], [phone], Insurance Providers Payer Name Payer Address Payer Phone Subscriber Number Group Number Insured Name Patient Relationship to Insured Coverage Start Date Coverage End Date [employer] [address] [place], [place] [id number] Ambrose Ward Self - patient is the insured Medical (General) History Medical History History ICD Code back pain. cysto 2012 neg pteryigium operated by Dr Raoul duke ey e and ear Colonoscopy done 07/26/17 Dr Eng,rep eat 10 years
--- OUTSIDE RECORDS SUMMARY | 2025-06-04 08:27 | XMS_ITS | Data Portability ---
Author Organization [facility]PHANIE Leonardo s, [address] Address [address] [place] [address] Care Team Providers Care Optical Design Engineer Name Role Phone PETER RON Primary Care Provider [phone] Assessment No assessment recorded. Plan of Treatment Reminders Order Date Submit Date Provider Last Modified By Organization Details Last Modified Time Details Appointments None recorded. Lab None recorded. Referral None recorded. Procedures None recorded. Surgeries None recorded. Imaging None recorded. Medication Orders doxycycline hyclate 100 mg capsule 2022 023 [facility][id number], [address] [place], [address], 10:24:18 mupirocin 2 % topical ointment 2022 023 [id number], [address] [place], [address], 10:24:18 Patient TargetsNo targets recorded. Patient Instructions Encounter Date Encounter Id Patient Instructions Last Modified By Organization Details Last Modified Time 01/28/2023 [id number] folliculitis: care instructions Not available 01/28/2023 10:24:15 Take the antibiotic [...] chills, abscess formation or other worsening symptoms. [email or web address] Not available 01/28/2023 10:25:59 Reason for Referral None Reported. Problems Name Problem SNOMED Code Status Onset Date Resolution Date Notes Provider Name and Address Organization Details Recorded Time Hypercholestero lemia 18791666 Active 2022 STEPHANIE Robles [facility] 10:04:43 [...] (BMI) Body weight Body temperature Oxygen saturation Heart rate Systolic And Diastolic Provider Name and Address Organization Details Last Updated DateTime 3 16 /min 177.8 cm 27.3 kg/m2 94829.5 5 g 97.5 [degF] 97 % 83 /min 115/82 mm[Hg] SHANNAN Alvarezum [facility] 10:08:24 Social History Question Answer Notes LastModified by Organizat ion Details LastModified Time Tobacco Smoking Status Never Smoker [facility]PHANIE [facility]les[facility] 01/28/2023 10:06:06 Which Illicit Or Recreational Drugs Have You Used? Marijuana [email or web address] Information not available 01/28/2023 Have You Recently Traveled Abroad? Yes Antonieta [email or web address] Information not available 01/28/2023 Sex: Unknown Functional Status Question Answer Note LastModified by Organizat ion Details LastModified Time Do you use any illicit or recreational drugs? Yes Information not available 01/28/2023 Do you or have you ever used any other forms of tobacco or nicotine? No [email or web address] Information not available 01/28/2023 What is your level of alcohol consumption? Occasional [email or web address] Information not available 01/28/2023 Mental Status None recorded. Family History Relationship Description Onset Age of this Age Resolved Age Notes LastModified by Organization Details LastModified Time Unspecified Relation Heart disease [email or web address] Not available 2022 10:05:04 Unspecified Relation Parkinson's disease Not available 2022 10:05:11 Unspecified Relation Carcinoma of prostate [email or web address] Not available 2022 10:05:24 Medical History No medical history recorded. Past Encounters Encounter ID Performer Location Encounter Start Date Encounter Closed Date Diagnosis/Indication Diagnosis SNOMED-CT Code Diagnosis ICD10 Code Diagnosis IMO Codes Diagnosis Note [id number] [facility] [address] [place] [phone] 11/30/2019 15:57:43 11/30/2019 17:43:45 [id number] [address] [place] [address] 11/26/2016 09:16:14 11/26/2016 09:45:24 [id number] [address] [place] [phone] 10/30/2016 09:48:23 10/30/2016 10:24:14 [id number] [place] [facility] [address] [place] [address] [place] [address] 01/28/2023 09:30:20 01/28/2023 10:29:39 Acute folliculitis 938603809 L73.9 Health Concerns Section Related Observation LastModified by Organization Detai ls LastModified Time None Recorded Concern Status LastModified by Organization Details LastModified Time None Recorded Advance Directives Directive None Recorded Payers Insurance Date Sequence Insurance Name Policy Number Policy [place] Covered Member ID [place] Member ID Guarantor Name 01/30/2023 1 [facility] [id number] Ambrose Ward [id number] Ambrose Ward Notes Date Note Type [...] Li Carpenter MD [address] [place], [address], [place] - [facility] 01/28/2023 10:32:59
== END 2025-06-04 09:04 | disposition home or self-care (01) ==
LOC: HO.HUSH 08:22
PROVIDERS: PCP Internal Medicine; Visit Provider Nurse Practitioner Family
DX: Z13.9 Encounter for screening, unspecified (principal); N20.0 Calculus of kidney
CPT/HCPCS: 99213